=== PATIENT | female | born 1980 | race Caucasian/White ===

== ENCOUNTER → 2019-12-21 09:45 | Outpatient (CLI) | payer BC, SELFPAY ==
--- NOTE | ~2019-12-21 | MMUS_ITS ---
EXAMINATION: MM diagnostic julia BI w torrie, US breast BI limited HISTORY: Follow-up breast masses TECHNIQUE: Additional 3-D tomosynthesis images of the breasts were performed and synthetic 2-D images were generated. CAD analysis was submitted and interpreted. High resolution bilateral breast ultraso und was performed. COMPARISON: 03/14/2019 FINDINGS: MAMMOGRAPHIC FINDINGS: The breasts are heterogenously dense, which may obscure small masses. Bilateral breast asymmetries ar e stable. No significant change to benign-appearing right breast calcifications. No new masses, calci fications or architectural distortion are identified. ULTRASOUND: Right breast ultrasound: At 1:00, 8 cm from the nipple, there is a 6 mm complicated cyst with low-level internal echoes. At 2: 00, 7 cm from the nipple, there is a 3 mm complicated cyst. Left breast ultrasound: At 12:00, 8 cm from the nipple, there is a 7 mm cyst. IMPRESSION: 1. No evidence for malignancy in either breast. Benign findings. 2. Routine yearly screening mammogram and regular clinical breast examination are recommended. BI-RADS Category 2: Benign finding(s). Reviewed, dictated and finalized at location A. IMPRESSION: 1. No evidence for malignancy in either breast. Benign findings. 2. Routine yearly screening mammogram and regular clinical breast examination a re recommended. BI-RADS Category 2: Benign finding(s).
== END ==
PROVIDERS: Visit Provider Obstetrics & Gynecology Gynecology
DX: R92.8 Other abnormal and inconclusive findings on diagnostic imaging of breast (principal)
CPT/HCPCS: 76642; 77062; 77066; G0279

== ENCOUNTER → 2020-08-31 14:29 | Outpatient (CLI) | payer BC, SELFPAY ==
--- NOTE | ~2020-08-31 | MMUS_ITS ---
EXAMINATION: MM diagnostic julia BI w torrie, US breast BI complete HISTORY: Bilateral breast pain for one month TECHNIQUE: ML, MLO and craniocaudal 3-D tomosynthesis images of both breasts were performed and synth etic 2-D images were generated. Bilateral magnification views. CAD analysis was submitted and interpr eted. High resolution complete bilateral breast ultrasound was performed. COMPARISON: 12/21/2019 and 03/16/2019 bilateral diagnostic digital mammogram and Limited bilateral breas t ultrasound 03/14/2019 bilateral digital screening mammogram BREAST PARENCHYMAL COMPOSITION: The breasts are heterogeneously dense, which may obscure small masses . FINDINGS: MAMMOGRAPHIC FINDINGS: There are numerous bilateral benign appearing microcalcifications. No malignant calcifications are ev ident. No suspicious mass, architectural distortion, skin thickening or retraction of either breast is evide nt. The heterogeneous density may obscure small masses. The patient complains of bilateral breast pain. B ilateral complete breast ultrasound examination was performed. The lung ULTRASOUND: Occasional bilateral circumscribed subcentimeter hypoechoic or sonolucent lesions are noted without i nternal vascularity or suspicious shadowing. IMPRESSION: 1. No mammographic evidence of malignancy 2. Routine mammographic screening is recommended. BI-RADS Category 2: Benign finding(s). Reviewed, dictated and finalized at location A. 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 No mammographic evidence of malignancy 2. Routine mammographic screening is recommended. BI-RADS Category 2: Benign finding(s).
== END ==
PROVIDERS: Visit Provider Obstetrics & Gynecology Gynecology
DX: N64.4 Mastodynia (principal)
CPT/HCPCS: 76641; 77062; 77066; G0279

== ENCOUNTER → 2020-11-03 00:23 | Outpatient (CLI) | payer BC, SELFPAY ==
[2020-11-03 19:43] LABS: SARS-CoV-2 RNA PCR Negative
== END ==
PROVIDERS: Visit Provider Internal Medicine Gastroenterology
DX: Z01.812 Encounter for preprocedural laboratory examination (principal); Z20.822 Contact with and (suspected) exposure to COVID-19
CPT/HCPCS: C9803; U0003; U0005

== ENCOUNTER 2020-11-07 02:21 | Day surgery (SDC) | payer BC, SELFPAY ==
[2020-10-30 10:07] VITALS: BMI 29.3
--- NOTE | 2020-11-07 07:48 | WPDANESEPPF ---
Anes - Initial Pre Proc Eval Procedure: Operation Date: 11/07/20 09:00 Proposed Procedures p Screening Colonoscopy - Darrion Horowitz MD Date/Time: 11/07/20 07:48 Surgeon: Darrion Horowitz MD Pre Op Diagnosis: hx of colon polyps Patient Data Age: 40 Gender: F Height: 1.55 m Weight: 70.5 kg Allergies Allergy/AdvReac Type Severity Reaction Status Date / Time erythromycin base Allergy Unknown Unknown Verified 11/07/20 08:09 pseudoephedrine Allergy Unknown heart Verified 11/07/20 08:09 palpatations artichoke AdvReac Difficulty Verified 11/07/20 08:09 Swallowing LACTOSE INTOLERANT AdvReac Unknown upset Uncoded 11/07/20 08:09 stomach Home Medications Medication Instructions Recorded Confirmed Type ergocalciferol (vitamin D2) 1,250 50,000 unit PO 2XW 09/09/19 10/30/20 History mcg (50,000 unit) capsule omeprazole 20 mg capsule,delayed 20 mg PO DAILY PRN #30 cap 09/09/19 10/30/20 Rx release rosuvastatin 10 mg tablet 10 mg PO DAILY #30 tablet 09/09/19 10/30/20 Rx ferrous sulfate 325 mg (65 mg 325 mg PO DAILY #90 tablet 12/26/19 10/30/20 Rx iron) tablet aspirin 81 mg PO DAILY 10/30/20 10/30/20 History levothyroxine [Synthroid] 75 mcg PO DAILY 10/30/20 10/30/20 History sbymhpwo-hafh-ND-calcium-mins 1 tablet PO DAILY 10/30/20 10/30/20 History [Women's One Daily] omega-3 fatty acids [Fish Oil] 1,000 mg PO DAILY 10/30/20 10/30/20 History Patient hx anesthesia problems: none Family hx anesthesia problems: none PMFSH Past Medical History Medical History (Updated 09/12/19 @ 15:08 by Conchita Montano MD) Elevated liver enzymes Gastroesophageal reflux disease Hx TIA/stroke w/o resid Migraine, unspecified, not intractable, without status migrainosus Other and unspecified hyperlipidemia Papillary adenocarcinoma of thyroid Vitamin D deficiency Family History Family History Father Family history of rheumatoid arthritis Family history of liver disease Diabetes mellitus Hypertension Hyperlipidemia Mother Cerebrovascular accident Diabetes mellitus Heart disease Hyperlipidemia Hypertension Social History Social History Smoking status: Never smoker Alcohol intake: never Living arrangements: with family Spiritual care concerns: No Anes - Eval Final PreProcedure Day of Procedure 11/07/20 07:48 Patient weight: overweight Heart: regular rate and rhythm Lungs: clear to auscultation and normal air movement Airway: Mallampati scale class II Neurological: alert and oriented Last oral intake: >/= 8 hours ASA classification: III Emergent: no Anesthetic plan: proceed Anesthesia type and monitoring: general GIVS Informed Consent: The patient's anesthetic plan and its attendant risks and benefits were discussed with the patient/family/POA. Questions were solicited and answers provided to the satisfaction of the patient/family/POA.
[2020-11-07 08:11] VITALS: BP 148/83; PULSE 102; RESP 18; TEMP 36.6; O2SAT 100
[2020-11-07] MEDS: LACTATED RINGERS 1,000 ML 150 ML IV CONT (08:25)
[2020-11-07 09:16] VITALS: BP 133/94; PULSE 99; RESP 22; O2SAT 98
[2020-11-07 09:26] VITALS: BP 126/82; BP 129/84; PULSE 79; PULSE 91; RESP 16; RESP 20; O2SAT 100; O2SAT 99
--- NOTE | 2020-11-14 14:31 | PM.HPGS ---
History of Present Illness History of Present Illness Consent: Risks, benefits, and alternatives have been discussed and questions answered. Patient agrees to proceed with procedure. Chief complaint: hx of colon polyps Narrative: Niurka Bolden is a 40 year old female was undergoing colonoscopy because of a history of polyps Review of Systems Review of Systems: All systems reviewed & are unremarkable except as noted in HPI and below PMFSH Past Medical History Medical History Elevated liver enzymes Gastroesophageal reflux disease Hx TIA/stroke w/o resid Migraine, unspecified, not intractable, without status migrainosus Other and unspecified hyperlipidemia Papillary adenocarcinoma of thyroid Vitamin D deficiency Family History Family History Father Family history of rheumatoid arthritis Family history of liver disease Diabetes mellitus Hypertension Hyperlipidemia Mother Cerebrovascular accident Diabetes mellitus Heart disease Hyperlipidemia Hypertension Social History Social History Smoking status: Never smoker Alcohol intake: never Living arrangements: with family Spiritual care concerns: No Meds Home Medications and Allergies Home Medications Medication Instructions Recorded Confirmed Type ergocalciferol (vitamin D2) 1,250 50,000 unit PO 2XW 09/09/19 10/30/20 History mcg (50,000 unit) capsule omeprazole 20 mg capsule,delayed 20 mg PO DAILY PRN #30 cap 09/09/19 10/30/20 Rx release rosuvastatin 10 mg tablet 10 mg PO DAILY #30 tablet 09/09/19 10/30/20 Rx ferrous sulfate 325 mg (65 mg 325 mg PO DAILY #90 tablet 12/26/19 10/30/20 Rx iron) tablet Women's One Daily 1 tablet PO DAILY 10/30/20 10/30/20 History aspirin 81 mg PO DAILY 10/30/20 10/30/20 History levothyroxine [Synthroid] 75 mcg PO DAILY 10/30/20 10/30/20 History omega-3 fatty acids 1,000 mg PO DAILY 10/30/20 10/30/20 History Allergies Allergy/AdvReac Type Severity Reaction Status Date / Time erythromycin base Allergy Unknown Unknown Verified 11/07/20 08:09 pseudoephedrine Allergy Unknown heart Verified 11/07/20 08:09 palpatations artichoke AdvReac Difficulty Verified 11/07/20 08:09 Swallowing LACTOSE INTOLERANT AdvReac Unknown upset Uncoded 11/07/20 08:09 stomach Exam Resp: Auscultation: clear to auscultation bilaterally Cardio: Rate: regular rate Rhythm: regular rhythm GI: GI Palp: Yes Soft to palpation and No Tenderness to palpation present (GI) Assessment and Plan Assessment and plan (1) Personal history of colonic polyps: Code(s): Z86.010 - Personal history of colonic polyps Status: Acute Assessment and Plan: Colonoscopy with possible biopsy or polypectomy or cautery or injection of substances.
== END 2020-11-07 09:44 | disposition home or self-care (01) ==
PROVIDERS: Visit Provider Internal Medicine Gastroenterology
PROC: 0DJD8ZZ Inspection of Lower Intestinal Tract, Via Natural or Artificial Opening Endoscopic (ICD-10-PCS; CPT 45378; principal; 2020-11-07 09:00)
DX: Z12.11 Encounter for screening for malignant neoplasm of colon (principal); K64.8 Other hemorrhoids; Z86.010 Personal history of colon polyps; K21.9 Gastro-esophageal reflux disease without esophagitis; E55.9 Vitamin D deficiency, unspecified; Z86.73 Personal history of transient ischemic attack (TIA), and cerebral infarction without residual deficits; E78.5 Hyperlipidemia, unspecified; Z85.850 Personal history of malignant neoplasm of thyroid
CPT/HCPCS: 45378; J2704; J7120

== ENCOUNTER → 2021-03-29 08:53 | Outpatient (CLI) | payer BC, SELFPAY ==
--- NOTE | ~2021-03-29 | US_ITS ---
EXAMINATION: US abdomen limited DATE: 03/29/2021 09:39 INDICATION: Abnormal liver enzymes TECHNIQUE: Multiple grayscale and Doppler ultrasound images of the abdomen were obtained. COMPARISON: None available FINDINGS: The head and body of the pancreas are normal. The pancreatic tail is obscured by bowel gas. The liver demonstrates increased echogenicity, heterogenous echotexture, and decreased through trans mission. No surface nodularity. Normal hepatopetal flow in the main portal vein. The gallbladder is n ormal with no abnormal wall thickening, pericholecystic fluid or stones. The normal common bile duct measures 6 mm. There was no sonographic Holgiun sign. IMPRESSION: 1. Diffuse hepatic steatosis. Reviewed, dictated and finalized at location A.
== END ==
PROVIDERS: PCP Nurse Practitioner; Visit Provider Nurse Practitioner
DX: R74.8 Abnormal levels of other serum enzymes (principal); K76.0 Fatty (change of) liver, not elsewhere classified
CPT/HCPCS: 76705

== ENCOUNTER 2021-11-05 17:23 | Outpatient (CLI) | payer BC, SELFPAY ==
--- NOTE | ~2021-11-05 | MM_ITS ---
EXAMINATION: MM screening [facility] BI w torrie HISTORY: Screening mammogram TECHNIQUE: Craniocaudal and mediolateral oblique 3-D tomosynthesis images were obtained and synthetic 2-D images were generated. CAD analysis was submitted and interpreted. COMPARISON: 08/31/2020, 12/21/2019, 03/16/2019, 03/14/2019 BREAST PARENCHYMAL COMPOSITION: The breasts are heterogeneously dense, which may obscure small masses . FINDINGS: Scattered benign-appearing calcifications are present. There is no suspicious mass, calcifi cation, or architectural distortion to suggest malignancy in either breast. There has been no suspici ous interval change. IMPRESSION: 1. No mammographic evidence of malignancy. 2. Recommend routine screening mammography in one year. BI-RADS Category 2: Benign finding(s). Reviewed, dictated and finalized at location A.
== END 2021-11-05 17:24 | disposition home or self-care (01) ==
LOC: ANHIMG 17:24
PROVIDERS: PCP Family Medicine; Visit Provider Obstetrics & Gynecology Gynecology
DX: Z12.31 Encounter for screening mammogram for malignant neoplasm of breast (principal)
CPT/HCPCS: 77063; 77067

== ENCOUNTER → 2021-12-10 13:27 | Outpatient (CLI) | payer BC, SELFPAY ==
--- NOTE | ~2021-12-10 | US_ITS ---
EXAMINATION: US pelvic complete DATE: 12/10/2021 13:51 INDICATION: Right lower quadrant pain TECHNIQUE: Multiple transabdominal and endovaginal sonographic images of the pelvis were obtained. COMPARISON: None. FINDINGS: The uterus measures 10.6 x 5.5 x 7.4 cm. There is a 3.4 x 2.4 x 2.5 cm isoechoic area of th e right uterine fundus which has the appearance of an intramural fibroid. The endometrial complex johnathan sures 11 mm. The right ovary measures 3.4 x 2.3 x 3.2 cm. The left ovary measures 2.4 x 1.6 x 2.2 cm. There is normal vascular flow in the ovaries. There is no free fluid in the pelvis. IMPRESSION: 1. No sonographic correlate for the patient's symptoms. Reviewed, dictated and finalized at location A.
== END ==
PROVIDERS: PCP Obstetrics & Gynecology Gynecology; Visit Provider Nurse Practitioner
DX: R10.31 Right lower quadrant pain (principal)
CPT/HCPCS: 76856

== ENCOUNTER → 2022-04-21 15:51 | Outpatient (CLI) | payer BC, SELFPAY ==
--- NOTE | ~2022-04-21 | US_ITS ---
EXAMINATION: US abdomen limited DATE: 04/21/2022 16:07 INDICATION: Elevated liver enzymes TECHNIQUE: Multiple grayscale and Doppler ultrasound images of limited portions of the abdomen were o btained. COMPARISON: 03/29/2021. FINDINGS: The visualized portions of the pancreas are normal. The liver is enlarged with increased ec hogenicity and normal echotexture. No surface nodularity. Normal hepatopetal flow in the main portal vein. Multiple nonmobile shadowing foci and a 4 mm nonshadowing focus. The common bile duct measures 4 mm. There was no sonographic Holguin sign. IMPRESSION: Hepatomegaly. Echogenic liver, most commonly due to steatosis but also can be seen with hepatitis and fibrosis. Nonmobile gallbladder foci likely represent adherent stones and a sludge ball versus small polyp. Reviewed, dictated and finalized at location K. IMPRESSION: Hepatomegaly. Echogenic liver, most commonly due to steatosis but also can be s een with hepatitis and fibrosis. Nonmobile gallbladder foci likely represent ad herent stones and a sludge ball versus small polyp.
== END ==
PROVIDERS: PCP Nurse Practitioner; Visit Provider Internal Medicine Endocrinology, Diabetes & Metabolism
DX: R74.01 Elevation of levels of liver transaminase levels (principal); R16.0 Hepatomegaly, not elsewhere classified
CPT/HCPCS: 76705

== ENCOUNTER → 2022-07-28 16:07 | Outpatient (CLI) | payer BC, SELFPAY ==
--- NOTE | ~2022-07-28 | XR_ITS ---
EXAMINATION: XR thoracic spine 3V DATE: 07/28/2022 16:32 INDICATION: Left-sided upper back pain TECHNIQUE: One AP, lateral and lateral swimmer's views of the thoracic spine were obtained. COMPARISON: None. FINDINGS: 5 degrees lower thoracic levocurvature. Sagittal alignment is normal. Vertebral body heights are norm al. Mild anterior disc height loss at multiple levels from T4-T5 through T9-T10. Visualized portions of the lungs are clear with no pneumothorax or pleural effusion. Cardiomediastinal silhouette is norm al. Surgical clips at the left side of the neck suggesting prior thyroidectomy. IMPRESSION: 1. Minimal lower thoracic levocurvature with mild thoracic spondylosis. Reviewed, dictated and finalized at location A. 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
--- NOTE | ~2022-07-28 | XR_ITS ---
EXAMINATION: XR scapula LT DATE: 07/28/2022 16:32 INDICATION: Left-sided upper back pain TECHNIQUE: AP and lateral views of the left scapula were obtained. COMPARISON: None. FINDINGS: Alignment is normal. No fracture. Acromioclavicular joint space is normal. Mild left glenohumeral ost eoarthritis. Visualized portion of the left lung is clear with no pneumothorax or pleural effusion. IMPRESSION: 1. Mild left glenohumeral osteoarthritis. No acute osseous abnormality. Reviewed, dictated and finalized at location A. 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
== END ==
PROVIDERS: PCP Nurse Practitioner; Visit Provider Nurse Practitioner
DX: M54.9 Dorsalgia, unspecified (principal); M47.814 Spondylosis without myelopathy or radiculopathy, thoracic region; M19.012 Primary osteoarthritis, left shoulder
CPT/HCPCS: 72072; 73010

== ENCOUNTER → 2022-10-14 08:50 | Outpatient (CLI) | payer BC, SELFPAY ==
--- NOTE | ~2022-10-14 | US_ITS ---
EXAMINATION: US pelvic complete DATE: 10/14/2022 09:09 INDICATION: Abnormal uterine bleeding. TECHNIQUE: Multiple transabdominal sonographic images of the pelvis were obtained. COMPARISON: Ultrasound 12/10/2021 FINDINGS: The uterus measures 9.1 x 5.2 x 5.9 cm. There is no free fluid in the pelvis. The endometrial complex measures 9 mm in thickness. There is a 3.0 cm intramural fibroid. The right ovary measures 3.2 x 1.4 x 1.9 cm. The left ovary measures 2.6 x 1.5 x 2.0 cm. There is normal vascular flow in the ovaries. IMPRESSION: 1. Uterine fibroid. Reviewed, dictated and finalized at location A. IMPRESSION: 1. Uterine fibroid.
== END ==
PROVIDERS: PCP Nurse Practitioner; Visit Provider Obstetrics & Gynecology Gynecology
DX: D25.9 Leiomyoma of uterus, unspecified (principal)
CPT/HCPCS: 76856

== ENCOUNTER 2022-11-19 01:50 | Day surgery (SDC) | payer BC, SELFPAY ==
[2022-11-07 13:52] VITALS: BMI 25.8
--- NOTE | 2022-11-18 16:13 | PM.HPGS ---
History of Present Illness History of Present Illness Consent: Risks, benefits, and alternatives have been discussed and questions answered. Patient agrees to proceed with procedure. Chief complaint: GERD Narrative: Niurka Bolden is a 42 year old female who was referred for investigation of reflux type symptoms. She has a history of thyroid cancer. At times it feels as though there is a lump in her throat. Review of Systems Review of Systems: All systems reviewed & are unremarkable except as noted in HPI and below PMFSH Past Medical History Medical History Elevated liver enzymes Gastroesophageal reflux disease Hx TIA/stroke w/o resid Migraine, unspecified, not intractable, without status migrainosus Other and unspecified hyperlipidemia Papillary adenocarcinoma of thyroid Vitamin D deficiency Family History Family History Father Family history of rheumatoid arthritis Family history of liver disease Diabetes mellitus Hypertension Hyperlipidemia Mother Cerebrovascular accident Diabetes mellitus Heart disease Hyperlipidemia Hypertension Social History Social History Smoking status: Never smoker Second hand tobacco smoke exposure: No Alcohol intake: never Substance use: never Substance use type: does not use Living arrangements: with family Gender identity (if verbalized by the patient): Female Sexual Orientation (if Verbalized by the Patient): Straight or Heterosexual Spiritual care concerns: No Agree to blood products: Yes Meds Home Medications and Allergies Home Medications Medication Instructions Recorded Confirmed Type ergocalciferol (vitamin D2) 1,250 50,000 unit PO 2XW 09/09/19 11/12/22 History mcg (50,000 unit) capsule (Vitamin D2) rosuvastatin 10 mg tablet 10 mg PO DAILY #30 tabs 09/09/19 11/12/22 Rx ferrous sulfate 325 mg (65 mg 325 mg PO DAILY #90 tabs 12/26/19 11/12/22 Rx iron) tablet aspirin 81 mg tablet 81 mg PO DAILY 10/30/20 11/12/22 History levothyroxine 75 mcg tablet 75 mcg PO DAILY 10/30/20 11/12/22 History (Synthroid) multivit-iron 18 mg-folic acid 400 1 tablet PO DAILY 10/30/20 11/12/22 History mcg-calcium 500 mg-minerals tablet (Women's One Daily) omega-3 fatty acids 1,000 mg PO DAILY 10/30/20 11/12/22 History levothyroxine 88 mcg tablet 88 mcg PO 3XW 11/07/22 11/12/22 History (Synthroid) metformin 500 mg tablet,extended 500 mg PO BID 11/07/22 11/12/22 History release 24 hr omeprazole 20 mg capsule,delayed 20 mg PO DAILY 11/07/22 11/12/22 History release phentermine 15 mg capsule 15 mg PO DAILY 11/07/22 11/12/22 History atogepant 30 mg tablet (Qulipta) 30 mg PO DAILY 11/12/22 11/18/22 History famotidine 40 mg tablet 40 mg PO DAILY 11/12/22 11/18/22 History Allergies Allergy/AdvReac Type Severity Reaction Status Date / Time pseudoephedrine Allergy Unknown Palpitation Verified 11/19/22 12:55 s butorphanol [From Stadol] Allergy Itching Verified 11/19/22 12:55 erythromycin base AdvReac Intermediate Nausea Verified 11/19/22 12:55 artichoke AdvReac Difficulty Verified 11/19/22 12:55 Swallowing LACTOSE INTOLERANT AdvReac Unknown upset Uncoded 11/19/22 12:55 stomach Exam Const: General: alert Orientation/consciousness: patient oriented x3 Resp: Auscultation: clear to auscultation bilaterally Cardio: Rhythm: regular rhythm GI: GI Palp: Yes Soft to palpation and No Tenderness to palpation present (GI) Neuro: General: patient oriented x3 Assessment and Plan Assessment and plan (1) Gastroesophageal reflux disease: Code(s): K21.9 - Gastro-esophageal reflux disease without esophagitis Status: Acute Assessment and Plan: EGD with possible biopsy or dilatation or cautery.
[2022-11-19 12:58] VITALS: BP 149/86; PULSE 91; RESP 18; TEMP 36.5; O2SAT 100
[2022-11-19] MEDS: LACTATED RINGERS 1,000 ML 150 ML IV CONT (13:11)
[2022-11-19 13:19] LABS: Glucose Point of Care 97 mg/dl (65-105)
--- NOTE | 2022-11-19 13:36 | WPDANESEPPF ---
Anes - Initial Pre Proc Eval Procedure: Operation Date: 11/19/22 14:00 Proposed Procedures p Esophagogastroduodenoscopy - Darrion Horowitz MD Date/Time: 11/19/22 13:36 Surgeon: Darrion Horowitz MD Pre Op Diagnosis: GERD Patient Data Age: 42 Gender: F Height: 1.55 m Weight: 63.2 kg Last Vital Signs Temp 97.7 F 11/19/22 12:58 Pulse 91 11/19/22 12:58 Resp 18 11/19/22 12:58 BP 149/86 H 11/19/22 12:58 Pulse Ox 100 11/19/22 12:58 O2 Del Method Room Air 11/19/22 12:58 Allergies Allergy/AdvReac Type Severity Reaction Status Date / Time pseudoephedrine Allergy Unknown Palpitation Verified 11/19/22 12:55 s butorphanol [From Stadol] Allergy Itching Verified 11/19/22 12:55 erythromycin base AdvReac Intermediate Nausea Verified 11/19/22 12:55 artichoke AdvReac Difficulty Verified 11/19/22 12:55 Swallowing LACTOSE INTOLERANT AdvReac Unknown upset Uncoded 11/19/22 12:55 stomach Home Medications Medication Instructions Recorded Confirmed Type ergocalciferol (vitamin D2) 1,250 50,000 unit PO 2XW 09/09/19 11/12/22 History mcg (50,000 unit) capsule (Vitamin D2) rosuvastatin 10 mg tablet 10 mg PO DAILY #30 tabs 09/09/19 11/12/22 Rx ferrous sulfate 325 mg (65 mg 325 mg PO DAILY #90 tabs 12/26/19 11/12/22 Rx iron) tablet aspirin 81 mg tablet 81 mg PO DAILY 10/30/20 11/12/22 History levothyroxine 75 mcg tablet 75 mcg PO DAILY 10/30/20 11/12/22 History (Synthroid) multivit-iron 18 mg-folic acid 400 1 tablet PO DAILY 10/30/20 11/12/22 History mcg-calcium 500 mg-minerals tablet (Women's One Daily) omega-3 fatty acids 1,000 mg PO DAILY 10/30/20 11/12/22 History levothyroxine 88 mcg tablet 88 mcg PO 3XW 11/07/22 11/12/22 History (Synthroid) metformin 500 mg tablet,extended 500 mg PO BID 11/07/22 11/12/22 History release 24 hr omeprazole 20 mg capsule,delayed 20 mg PO DAILY 11/07/22 11/12/22 History release phentermine 15 mg capsule 15 mg PO DAILY 11/07/22 11/12/22 History atogepant 30 mg tablet (Qulipta) 30 mg PO DAILY 11/12/22 11/18/22 History famotidine 40 mg tablet 40 mg PO DAILY 11/12/22 11/18/22 History Laboratory Tests 11/19/22 13:10 POC Capillary Glucose 97 mg/dl (65-105) Patient hx anesthesia problems: none Family hx anesthesia problems: none Results Review: All pre-operative results and documents have been reviewed as part of the pre-operative evaluation. 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 resid Migraine, unspecified, not intractable, without status migrainosus Other and unspecified hyperlipidemia Papillary adenocarcinoma of thyroid Vitamin D deficiency Family History Family History Father Family history of rheumatoid arthritis Family history of liver disease Diabetes mellitus Hypertension Hyperlipidemia Mother Cerebrovascular accident Diabetes mellitus Heart disease Hyperlipidemia Hypertension Social History Social History Smoking status: Never smoker Second hand tobacco smoke exposure: No Alcohol intake: never Substance use: never Substance use type: does not use Living arrangements: with family Gender identity (if verbalized by the patient): Female Sexual Orientation (if Verbalized by the Patient): Straight or Heterosexual Spiritual care concerns: No Agree to blood products: Yes Anes - Eval Final PreProcedure Day of Procedure 11/19/22 13:36 Patient weight: normal Heart: regular rate and rhythm Lungs: clear to auscultation Airway: Mallampati scale class II Neurological: alert and oriented Last oral intake: >/= 8 hours ASA classification: III Emergent: no Anesthetic plan: proceed Anesthesia type and monitoring: general GIVS an
[2022-11-19 13:51] VITALS: BP 147/94; PULSE 92; RESP 24; O2SAT 100
[2022-11-19 14:01] VITALS: BP 160/91; PULSE 89; RESP 20; O2SAT 100
[2022-11-19 14:11] VITALS: BP 148/88; PULSE 81; RESP 22; O2SAT 100
== END 2022-11-19 14:18 | disposition home or self-care (01) ==
LOC: ANHENDO 01:51 → ANHSURGERY 12:28 → ANHENDO 12:34
PROVIDERS: PCP Nurse Practitioner; Visit Provider Internal Medicine Gastroenterology
PROC: 0DJ08ZZ Inspection of Upper Intestinal Tract, Via Natural or Artificial Opening Endoscopic (ICD-10-PCS; CPT 43235; principal; 2022-11-19 14:00)
DX: K21.9 Gastro-esophageal reflux disease without esophagitis (principal); K29.60 Other gastritis without bleeding; E78.49 Other hyperlipidemia; E55.9 Vitamin D deficiency, unspecified; Z86.73 Personal history of transient ischemic attack (TIA), and cerebral infarction without residual deficits; Z79.82 Long term (current) use of aspirin; Z79.84 Long term (current) use of oral hypoglycemic drugs
CPT/HCPCS: 43239; 82948; 87081; J2704; J7120

== ENCOUNTER 2022-11-19 12:35 | Outpatient (CLI) | payer BC, SELFPAY ==
[2022-11-19 13:17] LABS: Hematocrit 38.1 % (37.0-47.0); Hemoglobin 11.9 g/dL (12.0-15.0)
[2022-11-19 13:28] LABS: Anion Gap 8 mmol/L (8-16); Blood Urea Nitrogen 11 mg/dL (7-17); Calcium 8.3 mg/dL (8.4-10.2); Carbon Dioxide 26 mmol/L (22-30); Chloride 103 mmol/L (98-107); Estimated Glomerular Filt Rate > 60; Glucose 99 mg/dL (65-110); Potassium 3.6 mmol/L (3.4-5.0); Sodium 137 mmol/L (137-145)
[2022-11-19 13:33] LABS: Prothrombin Time 13.8 Seconds (11.1-14.7)
[2022-11-19 13:34] LABS: Partial Thromboplastin Time 26.6 SECONDS (22.3-36.8)
== END 2022-11-19 12:36 | disposition home or self-care (01) ==
LOC: ANHSURGERY 12:36
PROVIDERS: Anesthesiology; PCP Nurse Practitioner; Visit Provider Obstetrics & Gynecology Gynecology
DX: K76.0 Fatty (change of) liver, not elsewhere classified (principal); D64.9 Anemia, unspecified; Z01.818 Encounter for other preprocedural examination
CPT/HCPCS: 36415; 80048; 85014; 85018; 85610; 85730

== ENCOUNTER 2022-11-23 14:04 | Emergency (ER) | payer BC, SELFPAY ==
[2022-11-23] VITALS (10 sets, daily range): BP systolic 120–154; BP diastolic 75–91; PULSE 78–95; RESP 14–20; TEMP 37; O2SAT 98–100
--- NOTE | ~2022-11-23 | XR_ITS ---
Clinical Indication: Chest pain PA and lateral views of the chest: Comparison: 02/09/2015 Findings: The lungs are clear, without evidence of focal consolidation or pleural effusion. Cardiome diastinal silhouette is within normal limits. Bones and soft tissues are unremarkable. Impression: Normal chest. Reviewed, dictated and finalized at location . Impression: Normal chest.
--- NOTE | 2022-11-23 14:06 | ECG_ITS ---
Measurements Intervals [place] Rate: 82 P: 1 NH: 119 QRS: 35 QRSD: 76 T: 46 QT: 354 QTc: 414 Interpretive Statements SINUS RHYTHM WITH SHORT NH INTERVAL ABNORMAL ECG NO PREVIOUS ECG AVAILABLE FOR COMPARISON Electronically Signed On 11-24-2022 10:15:49 CDT by Qamar Vasquez M.D.
[2022-11-23 14:50] LABS: Basophils Absolute Auto 0.1 K/mm3 (0.0-0.1); Basophils Percent Auto 0.6 % (0.2-1.2); Eosinophils Absolute Auto 0.2 K/mm3 (0-0.3); Eosinophils Percent Auto 2.8 % (0-4.4); Hematocrit 40.8 % (37.0-47.0); Hemoglobin 12.8 g/dL (12.0-15.0); Immature Granulocyte Absolute 0.04 K/mm3 (0.00-0.031); Immature Granulocyte Percent A 0.5 % (0-0.5); Lymphocytes Absolute Auto 1.62 K/mm3 (0.9-3.2); Lymphocytes Percent Auto 19.5 % (18.3-44.2); Mean Corpuscular HGB Conc 31.4 g/dl (32-36); Mean Corpuscular Hemoglobin 24.2 pg (26-34); Mean Platelet Volume 9.5 fl (7.4-10.4); Monocytes Absolute Auto 0.5 K/mm3 (0.1-0.6); Monocytes Percent Auto 6.5 % (2.6-8.5); Neutrophils Absolute Auto 5.8 K/mm3 (1.3-6.7); Neutrophils Percent Auto 70.1 % (45.5-73.1); Platelet Count Result 366 k/mm3 (150-375); White Blood Count 8.3 K/mm3 (4.5-10.0)
--- NOTE | 2022-11-23 14:50 | ED.CHESTPAIN ---
HPI - Chest Pain General Chief Complaint: Chest Pain Stated Complaint: chest pain Time Seen by Provider: 11/23/22 14:18 History of Present Illness HPI narrative: 42-year-old female presented to the emergency department for evaluation of epigastric pain. Patient does have a history of gastritis and esophagitis. Patient recently had follow-up with Dr. Horowitz and had a scope that showed esophagitis/gastritis. Patient did have her omeprazole. Patient denies any prior history of ACS or DC. Patient does have history of TIA approximately 10 years ago. Patient reports family history of cardiomyopathy, coronary disease. Related Data Home Medications Medication Instructions Recorded Confirmed ergocalciferol (vitamin D2) 1,250 50,000 unit PO 2XW 09/09/19 11/12/22 mcg (50,000 unit) capsule (Vitamin D2) aspirin 81 mg tablet 81 mg PO DAILY 10/30/20 11/12/22 levothyroxine 75 mcg tablet 75 mcg PO DAILY 10/30/20 11/12/22 (Synthroid) multivit-iron 18 mg-folic acid 400 1 tablet PO DAILY 10/30/20 11/12/22 mcg-calcium 500 mg-minerals tablet (Women's One Daily) omega-3 fatty acids 1,000 mg PO DAILY 10/30/20 11/12/22 levothyroxine 88 mcg tablet 88 mcg PO 3XW 11/07/22 11/12/22 (Synthroid) metformin 500 mg tablet,extended 500 mg PO BID 11/07/22 11/12/22 release 24 hr omeprazole 20 mg capsule,delayed 20 mg PO DAILY 11/07/22 11/12/22 release phentermine 15 mg capsule 15 mg PO DAILY 11/07/22 11/12/22 atogepant 30 mg tablet (Qulipta) 30 mg PO DAILY 11/12/22 11/18/22 famotidine 40 mg tablet 40 mg PO DAILY 11/12/22 11/18/22 Allergies Allergy/AdvReac Type Severity Reaction Status Date / Time pseudoephedrine Allergy Unknown Palpitation Verified 11/23/22 15:41 s butorphanol [From Stadol] Allergy Itching Verified 11/23/22 15:41 erythromycin base AdvReac Intermediate Nausea Verified 11/23/22 15:41 artichoke AdvReac Difficulty Verified 11/23/22 15:41 Swallowing LACTOSE INTOLERANT AdvReac Unknown upset Uncoded 11/23/22 15:41 stomach Review of Systems Review of Systems: All systems reviewed & are unremarkable except as noted in HPI and below PMFSH Past Medical History Medical History Elevated liver enzymes Gastroesophageal reflux disease Hx TIA/stroke w/o resid Migraine, unspecified, not intractable, without status migrainosus Other and unspecified hyperlipidemia Papillary adenocarcinoma of thyroid Vitamin D deficiency Family History Family History Father Family history of rheumatoid arthritis Family history of liver disease Diabetes mellitus Hypertension Hyperlipidemia Mother Cerebrovascular accident Diabetes mellitus Heart disease Hyperlipidemia Hypertension Social History Social History Smoking status: Never smoker Second hand tobacco smoke exposure: No Alcohol intake: never Substance use: never Substance use type: does not use Living arrangements: with family Gender identity (if verbalized by the patient): Female Sexual Orientation (if Verbalized by the Patient): Straight or Heterosexual Spiritual care concerns: No Agree to blood products: Yes Exam Narrative: APPEARANCE: Well appearing, no pain, no distress, well-nourished. HEAD: normocephalic, atraumatic. EYES: PERRLA/EOMI, conjunctivae clear. NOSE: Normal no drainage NECK: Supple. No adenopathy, no masses. RESPIRATORY: Airway patent, respirations nonlabored. Clear to auscultation bilaterally, no rales, rhonchi, wheezing. CARDIOVASCULAR: Regular rate and rhythm without murmurs rubs or gallops. ABDOMINAL: Soft, nontender, nondistended, normal bowel sounds MUSCULOSKELETAL: Moves all extremities. Strength/ROM intact, No edema, No calf tenderness. NEURO: Alert. Cranial nerves II through XII intact. Grossly intact SKIN: Warm, dry. Normal Color [place]
[2022-11-23 15:01] LABS: Prothrombin Time 13.3 Seconds (11.1-14.7)
[2022-11-23 15:07] LABS: Alanine Aminotransferase 25 U/L (6-35); Albumin Level 4.7 g/dL (3.5-5.1); Alkaline Phosphatase 68 U/L (38-126); Anion Gap 9 mmol/L (8-16); Aspartate Amino Transferase 27 U/L (14-36); Bilirubin,Total 1.1 mg/dL (0.2-1.3); Blood Urea Nitrogen 8 mg/dL (7-17); Calcium 9.2 mg/dL (8.4-10.2); Carbon Dioxide 28 mmol/L (22-30); Chloride 102 mmol/L (98-107); Estimated CRCL calculation 125 ml/min; Estimated Glomerular Filt Rate > 60; Glucose 98 mg/dL (65-110); Lipase 45 U/L (23-300); Potassium 3.7 mmol/L (3.4-5.0); Sodium 139 mmol/L (137-145)
[2022-11-23 15:19] LABS: Troponin I < 0.012 ng/mL (0.000-0.034)
[2022-11-23 18:34] LABS: Troponin I < 0.012 ng/mL (0.000-0.034)
== END 2022-11-23 20:05 | disposition home or self-care (01) ==
PROVIDERS: Emergency Provider Emergency Medicine; PCP Nurse Practitioner
DX: R07.89 Other chest pain (principal); K21.00 Gastro-esophageal reflux disease with esophagitis, without bleeding; E78.49 Other hyperlipidemia; E55.9 Vitamin D deficiency, unspecified; Z85.850 Personal history of malignant neoplasm of thyroid; Z86.73 Personal history of transient ischemic attack (TIA), and cerebral infarction without residual deficits; Z79.84 Long term (current) use of oral hypoglycemic drugs
CPT/HCPCS: 36415; 71046; 80053; 83690; 84484; 85025; 85610; 85730; 93005; 99284

== ENCOUNTER 2022-11-24 01:49 | Day surgery (SDC) | payer BC, SELFPAY ==
[2022-11-12 14:50] VITALS: BMI 25.7
--- NOTE | 2022-11-12 14:59 | PC.NURSE ---
Report to the Outpatient Waiting Room, entrance under the green pavilion located off [facility], at time 9:00 on date 11/24/22. Planned Procedure Time: 11:00. Time changes happen often and if your time is changed the preop area will call you the afternoon before. - You and your visitor will be asked to self-screen and do not enter if you have any COVID symptoms. - A mask is optional within the hospital at this time. Patients may have clear liquids (water, carbonated beverages, clear teas, apple juice) until 3 hours prior to surgery with a maximum of 20 ounces. - No food from midnight until time of surgery Take the following medications with a SIP of water the morning of surgery: LEVOTHYROXINE DO NOT STOP ANY OF YOUR OTHER PRESCRIPTION MEDICATIONS PRIOR TO SURGERY EXCEPT THE FOLLOWING Medications to discontinue per physician: VITAMINS/SUPPLEMENTS Date to take last dose: 11/20/[address] ANDREWS REGARDING ASPIRIN Please no make-up, nail uzbek, hairspray, perfume, deodorant, or body powder the day of surgery. No jewelry (including any body piercings) or valuables the day of surgery, leave them at home. Please take a shower or bath the night before, or the morning of, surgery with an antibacterial soap. Wear comfortable, loose fitting clothing. - Jewelry must be removed prior to entering the operating room. Rings and piercings that are not removed may be cut off. - The hospital will not accept responsibility for valuables. - Please leave all valuables, including medications, at home the day of surgery. If you are going home after surgery, a licensed truck driver's offsider must drive you home. - NO public transportation without another adult if you receive anesthesia. - We recommend that an adult stay with you for 24 hours following discharge. - We also recommend that you do not drive, make important decision, drink alcoholic beverages, or take any drugs that were not prescribed by your health care provider for at least 24 hours after your discharge time. Follow any additional instructions given to you from your surgeon. If you or anyone in your household have experienced Covid symptoms in the past week, please notify your surgeon or the nurse liaison at the phone number below for possible testing. Telephone instructions given to PT - LONI OLIVO and asked if any additional questions and then verbalized understanding. Patient advised to call surgeon office or pre surgery nurse liaison [phone] if any additional questions.
--- NOTE | 2022-11-24 07:38 | WPDHPUPDATE1 ---
History and Physical Update Update Date/Time: 11/24/22 07:38 History and Physical has been reviewed, including an updated exam of the patient. There are NO changes in the patient's condition. Risks, benefits, and alternatives have been discussed and questions answered. Patient agrees to proceed with procedure.
--- NOTE | 2022-11-24 07:38 | PM.HPGS ---
History of Present Illness History of Present Illness Consent: Risks, benefits, and alternatives have been discussed and questions answered. Patient agrees to proceed with procedure. Chief complaint: menorrhagia with anemia Narrative: Niurka Bolden is a 42 year old female with heavy cycles. Patient states she was bleeding more than a pad per hour and bleeding through her clothes. Cycles were lasting approximately 4 to 5 days total. Ultrasound does reveal an intramural fibroid but states no others. Hemoglobin most recently was 10.7. It was recommended to proceed with further workup including D&C hysteroscopy. Risks of infection, bleeding, and perforation were reviewed. Possible pathology was also discussed. Patient voices understanding and agrees to proceed. Review of Systems Review of Systems: not repeated day of surgery; patient states no changes in status PMFSH Past Medical History Medical History (Updated 11/24/22 @ 07:42 by Cece Gutierrez MD) Elevated liver enzymes Gastroesophageal reflux disease History of kidney stones Hx TIA/stroke w/o resid Migraine, unspecified, not intractable, without status migrainosus (normal spontaneous vaginal delivery) x2 Other and unspecified hyperlipidemia Papillary adenocarcinoma of thyroid Vitamin D deficiency Surgical History Surgical History (Updated 11/24/22 @ 07:41 by Cece Gutierrez MD) History of thyroidectomy Hx of LASIK Family History Family History Father Family history of rheumatoid arthritis Family history of liver disease Diabetes mellitus Hypertension Hyperlipidemia Mother Cerebrovascular accident Diabetes mellitus Heart disease Hyperlipidemia Hypertension Social History Social History Smoking status: Never smoker Second hand tobacco smoke exposure: No Alcohol intake: never Substance use: never Substance use type: does not use Living arrangements: with family Gender identity (if verbalized by the patient): Female Sexual Orientation (if Verbalized by the Patient): Straight or Heterosexual Spiritual care concerns: No Agree to blood products: Yes Meds Home Medications and Allergies Home Medications Medication Instructions Recorded Confirmed Type ergocalciferol (vitamin D2) 1,250 50,000 unit PO 2XW 09/09/19 11/12/22 History mcg (50,000 unit) capsule (Vitamin D2) rosuvastatin 10 mg tablet 10 mg PO DAILY #30 tabs 09/09/19 11/12/22 Rx ferrous sulfate 325 mg (65 mg 325 mg PO DAILY #90 tabs 12/26/19 11/12/22 Rx iron) tablet aspirin 81 mg tablet 81 mg PO DAILY 10/30/20 11/12/22 History levothyroxine 75 mcg tablet 75 mcg PO DAILY 10/30/20 11/12/22 History (Synthroid) multivit-iron 18 mg-folic acid 400 1 tablet PO DAILY 10/30/20 11/12/22 History mcg-calcium 500 mg-minerals tablet (Women's One Daily) omega-3 fatty acids 1,000 mg PO DAILY 10/30/20 11/12/22 History levothyroxine 88 mcg tablet 88 mcg PO 3XW 11/07/22 11/12/22 History (Synthroid) metformin 500 mg tablet,extended 500 mg PO BID 11/07/22 11/12/22 History release 24 hr omeprazole 20 mg capsule,delayed 20 mg PO DAILY 11/07/22 11/12/22 History release phentermine 15 mg capsule 15 mg PO DAILY 11/07/22 11/12/22 History atogepant 30 mg tablet (Qulipta) 30 mg PO DAILY 11/12/22 11/18/22 History famotidine 40 mg tablet 40 mg PO DAILY 11/12/22 11/18/22 History Allergies Allergy/AdvReac Type Severity Reaction Status Date / Time pseudoephedrine Allergy Unknown Palpitation Verified 11/23/22 15:41 s butorphanol [From Stadol] Allergy Itching Verified 11/23/22 15:41 erythromycin base AdvReac Intermediate Nausea Verified 11/23/22 15:41 artichoke AdvReac Difficulty Verified 11/23/22 15:41 Swallowing LACTOSE INTOLERANT AdvReac Unknown upset Uncoded 11/23/22 15:41 stomach Exam Const: Gener
[2022-11-24] MEDS: LACTATED RINGERS 1,000 ML 30 ML IV CONT (10:00)
[2022-11-24 10:01] LABS: Glucose Point of Care 113 mg/dl (65-105)
[2022-11-24 10:08] VITALS: BP 121/79; PULSE 91; RESP 14; TEMP 36.8; O2SAT 100
[2022-11-24] MEDS: ACETAMINOPHEN 500 MG TABLET 1000 MG PO (10:10)
--- NOTE | 2022-11-24 10:26 | WPDANESEPPF ---
Anes - Initial Pre Proc Eval Procedure: Operation Date: 11/24/22 11:00 Proposed Procedures p Hysteroscopy, Dilation and Curettage - Cece Gutierrez MD Date/Time: 11/24/22 10:26 Surgeon: Cece Gutierrez MD Pre Op Diagnosis: menorrhagia with anemia Patient Data Age: 42 Gender: F Height: 1.55 m Weight: 63.7 kg Last Vital Signs Temp 36.8 C 11/24/22 10:08 Pulse 91 11/24/22 10:08 Resp 14 11/24/22 10:08 BP 121/79 11/24/22 10:08 Pulse Ox 100 11/24/22 10:08 O2 Del Method Room Air 11/24/22 10:08 Allergies Allergy/AdvReac Type Severity Reaction Status Date / Time pseudoephedrine Allergy Unknown Palpitation Verified 11/24/22 10:12 s butorphanol [From Stadol] Allergy Itching Verified 11/24/22 10:12 erythromycin base AdvReac Intermediate Nausea Verified 11/24/22 10:12 artichoke AdvReac Difficulty Verified 11/24/22 10:12 Swallowing LACTOSE INTOLERANT AdvReac Unknown upset Uncoded 11/24/22 10:12 stomach Home Medications Medication Instructions Recorded Confirmed Type ergocalciferol (vitamin D2) 1,250 50,000 unit PO 2XW 09/09/19 11/12/22 History mcg (50,000 unit) capsule (Vitamin D2) rosuvastatin 10 mg tablet 10 mg PO DAILY #30 tabs 09/09/19 11/12/22 Rx ferrous sulfate 325 mg (65 mg 325 mg PO DAILY #90 tabs 12/26/19 11/12/22 Rx iron) tablet aspirin 81 mg tablet 81 mg PO DAILY 10/30/20 11/12/22 History levothyroxine 75 mcg tablet 75 mcg PO DAILY 10/30/20 11/24/22 History (Synthroid) multivit-iron 18 mg-folic acid 400 1 tablet PO DAILY 10/30/20 11/12/22 History mcg-calcium 500 mg-minerals tablet (Women's One Daily) omega-3 fatty acids 1,000 mg PO DAILY 10/30/20 11/12/22 History levothyroxine 88 mcg tablet 88 mcg PO 3XW 11/07/22 11/12/22 History (Synthroid) metformin 500 mg tablet,extended 500 mg PO BID 11/07/22 11/12/22 History release 24 hr omeprazole 20 mg capsule,delayed 20 mg PO DAILY 11/07/22 11/12/22 History release phentermine 15 mg capsule 15 mg PO DAILY 11/07/22 11/12/22 History atogepant 30 mg tablet (Qulipta) 30 mg PO DAILY 11/12/22 11/18/22 History famotidine 40 mg tablet 40 mg PO DAILY 11/12/22 11/18/22 History Laboratory Tests 11/24/22 09:58 POC Capillary Glucose 113 H mg/dl (65-105) Patient hx anesthesia problems: none Family hx anesthesia problems: none Results Review: All pre-operative results and documents have been reviewed as part of the pre-operative evaluation. [facility] Past Medical History Medical History Elevated liver enzymes Gastroesophageal reflux disease History of kidney stones Hx TIA/stroke w/o resid Migraine, unspecified, not intractable, without status migrainosus (normal spontaneous vaginal delivery) x2 Other and unspecified hyperlipidemia Papillary adenocarcinoma of thyroid Vitamin D deficiency Surgical History Surgical History History of thyroidectomy Hx of LASIK Family History Family History Father Family history of rheumatoid arthritis Family history of liver disease Diabetes mellitus Hypertension Hyperlipidemia Mother Cerebrovascular accident Diabetes mellitus Heart disease Hyperlipidemia Hypertension Social History Social History Smoking status: Never smoker Second hand tobacco smoke exposure: No Alcohol intake: never Substance use: never Substance use type: does not use Living arrangements: with family Gender identity (if verbalized by the patient): Female Sexual Orientation (if Verbalized by the Patient): Straight or Heterosexual Spiritual care concerns: No Agree to blood products: Yes Anes - Eval Final PreProcedure Day of Procedure 11/24/22 10:26 Patient weight: overweight Heart:
[2022-11-24] MEDS: LIDO 1%/EPINEPHRINE 1:100,000 50 ML VIAL 10 ML INFILTRATE (11:04)
[2022-11-24 11:15] VITALS: BP 138/81; PULSE 94; RESP 14; O2SAT 97
--- NOTE | 2022-11-24 11:19 | P.OP_ITS ---
Procedure Note - Detailed Date of Procedure 11/24/22 Pre-op Diagnosis menorrhagia with anemia Post-op Diagnosis Same Procedure Performed D&C hysteroscopy Surgeon Cece Gutierrez MD Anesthesia MAC and Local Findings uterus sounds to 8cm and the endometrium appears grossly normal Description of Procedure The patient is taken to the operating room and placed under anesthesia in the dorsal lithotomy position. She was prepped and draped in usual sterile fashion. [place] speculum was placed in the vagina and the cervix grasped on the anterior lip with tenaculum. The cervix is injected in each quadrant with 1% lidocaine the cervix is stenotic. The os Finders were used and are able to enter the endometrial cavity. The uterus sounds to 8cm. The hysteroscope is then placed with no abnormalities noted it is removed. The sharp curette is used to curette the endometrium until a good uterine cry was noted in all areas. All instruments are removed. Sponge, needle, and instrument counts are correct per the OR staff. Patient is awakened from anesthesia and taken to recovery in stable condition. Estimated Blood Loss 5 Drains No Packing No Pathology Yes ( Endometrial curettings) Complications No immediate complications Condition Stable Disposition PACU
[2022-11-24 11:25] LABS: Glucose Point of Care 128 mg/dl (65-105)
[2022-11-24 11:45] VITALS: BP 130/80; PULSE 77; RESP 14
[2022-11-24 12:15] VITALS: BP 138/80; PULSE 76; RESP 14
== END 2022-11-24 12:24 | disposition home or self-care (01) ==
PROVIDERS: PCP Nurse Practitioner; Visit Provider Obstetrics & Gynecology Gynecology
PROC: 0U5B8ZZ Destruction of Endometrium, Via Natural or Artificial Opening Endoscopic (ICD-10-PCS; CPT 58563; principal; 2022-11-24 11:00)
DX: N92.0 Excessive and frequent menstruation with regular cycle (principal); D64.9 Anemia, unspecified; E89.0 Postprocedural hypothyroidism; E78.49 Other hyperlipidemia; K21.9 Gastro-esophageal reflux disease without esophagitis; E55.9 Vitamin D deficiency, unspecified; Z86.73 Personal history of transient ischemic attack (TIA), and cerebral infarction without residual deficits; Z85.850 Personal history of malignant neoplasm of thyroid; Z79.84 Long term (current) use of oral hypoglycemic drugs
CPT/HCPCS: 58558; 82948; 88305; A9270; J2250; J2405; J2704; J3010; J7120

== ENCOUNTER 2022-12-15 00:46 | Day surgery (SDC) | payer BC, SELFPAY ==
[2022-12-09 16:36] VITALS: BMI 25.9
--- NOTE | 2022-12-09 16:39 | SUR.PREOP ---
Report to the Outpatient Waiting Room, entrance under the green pavilion located off [facility], at time 12/15/22 on date 914. Planned Procedure Time: 1115. . Time changes happen often and if your time is changed the preop area will call you the afternoon before. - You and your visitor will be asked to self-screen and do not enter if you have any COVID symptoms. - A mask is optional within the hospital at this time. Patients may have clear liquids (water, carbonated beverages, clear teas, apple juice) until 3 hours prior to surgery with a maximum of 20 ounces. - No food from midnight until time of surgery before 0830 am - Infants may have breast milk until 4 hours before surgery, formula 6 hours prior to surgery. - Children will be allowed to drink immediately following surgery. If applicable, please bring a bottle or sippy cup to assist with drinking. Juice, water, soda, and popsicles are readily available. For infants on formula, please bring formula the day of surgery. Pacifiers are allowed. Take the following medications with a SIP of water the morning of surgery: ___levothyroxine DO NOT STOP ANY OF YOUR OTHER PRESCRIPTION MEDICATIONS PRIOR TO SURGERY ?EXCEPT THE FOLLOWING Medications to discontinue per physician ____pt to call office in regards to aspirin and weight loss medication. hold supplements and vitamins for 3 days prior to surgery Date to take last dose Please no make-up, nail latvian, hairspray, perfume, deodorant, or body powder the day of surgery. No jewelry (including any body piercings) or valuables the day of surgery, leave them at home. Please take a shower or bath the night before, or the morning of, surgery with an antibacterial soap. Wear comfortable, loose fitting clothing. Children are encouraged to wear pajamas. - Jewelry must be removed prior to entering the operating room. Rings and piercings that are not removed may be cut off. - The hospital will not accept responsibility for valuables. - Please leave all valuables, including medications, at home the day of surgery. If you are going home after surgery, a licensed bus driver/monitor must drive you home. - NO public transportation without another adult if you receive anesthesia. - We recommend that an adult stay with you for 24 hours following discharge. - We also recommend that you do not drive, make important decision, drink alcoholic beverages, or take any drugs that were not prescribed by your health care provider for at least 24 hours after your discharge time. For Pediatric surgeries, we recommend two adults accompany the child home. Follow any additional instructions given to you from your surgeon. If you or anyone in your household have experienced Covid symptoms in the past week, please notify your surgeon or the nurse liaison at the phone number below for possible testing. Telephone instructions given to _patient_and asked if any additional questions and then verbalized understanding. Patient advised to call surgeon office or pre surgery nurse liaison [phone] if any additional questions.
--- NOTE | 2022-12-15 08:58 | WPDHPUPDATE1 ---
History and Physical Update Update Date/Time: 12/15/22 08:58 History and Physical has been reviewed, including an updated exam of the patient. There are NO changes in the patient's condition. Risks, benefits, and alternatives have been discussed and questions answered. Patient agrees to proceed with procedure.
--- NOTE | 2022-12-15 08:59 | PM.HPGS ---
History of Present Illness History of Present Illness Consent: Risks, benefits, and alternatives have been discussed and questions answered. Patient agrees to proceed with procedure. Chief complaint: menorrhagia with anemia Narrative: Niurka Bolden is a 42 year old female with menorrhagia. Patient had hysteroscopy with D&C and benign findings. Patient has elected to proceed with endometrial ablation with Ayde device. Risks of infection, bleeding, perforation, and failure are reviewed. Patient voices understanding and agrees to proceed. Review of Systems Review of Systems: not repeated day of surgery; patient states no changes in status PMFSH Past Medical History Medical History Elevated liver enzymes Gastroesophageal reflux disease History of kidney stones Hx TIA/stroke w/o resid Migraine, unspecified, not intractable, without status migrainosus (normal spontaneous vaginal delivery) x2 Other and unspecified hyperlipidemia Papillary adenocarcinoma of thyroid Vitamin D deficiency Surgical History Surgical History (Updated 12/15/22 @ 09:01 by Cece Gutierrez MD) History of hysteroscopy History of thyroidectomy Hx of LASIK Family History Family History Father Family history of rheumatoid arthritis Family history of liver disease Diabetes mellitus Hypertension Hyperlipidemia Mother Cerebrovascular accident Diabetes mellitus Heart disease Hyperlipidemia Hypertension Social History Social History Smoking status: Never smoker Second hand tobacco smoke exposure: No Alcohol intake: never Substance use: never Substance use type: does not use Living arrangements: with family Gender identity (if verbalized by the patient): Female Sexual Orientation (if Verbalized by the Patient): Straight or Heterosexual Spiritual care concerns: No Agree to blood products: Yes Meds Home Medications and Allergies Home Medications Medication Instructions Recorded Confirmed Type ergocalciferol (vitamin D2) 1,250 50,000 unit PO 2XW 09/09/19 12/09/22 History mcg (50,000 unit) capsule (Vitamin D2) rosuvastatin 10 mg tablet 10 mg PO DAILY #30 tabs 09/09/19 12/09/22 Rx ferrous sulfate 325 mg (65 mg 325 mg PO DAILY #90 tabs 12/26/19 12/09/22 Rx iron) tablet aspirin 81 mg tablet 81 mg PO DAILY 10/30/20 12/09/22 History levothyroxine 75 mcg tablet 75 mcg PO DAILY 10/30/20 12/09/22 History (Synthroid) multivit-iron 18 mg-folic acid 400 1 tablet PO DAILY 10/30/20 12/09/22 History mcg-calcium 500 mg-minerals tablet (Women's One Daily) omega-3 fatty acids 1,000 mg PO DAILY 10/30/20 12/09/22 History levothyroxine 88 mcg tablet 88 mcg PO 3XW 11/07/22 12/09/22 History (Synthroid) metformin 500 mg tablet,extended 500 mg PO BID 11/07/22 12/09/22 History release 24 hr phentermine 15 mg capsule 15 mg PO DAILY 11/07/22 12/09/22 History atogepant 30 mg tablet (Qulipta) 30 mg PO DAILY 11/12/22 12/09/22 History famotidine 40 mg tablet 40 mg PO DAILY 11/12/22 12/09/22 History omeprazole 40 mg capsule,delayed 40 mg PO DAILY #30 caps 11/24/22 12/09/22 Rx release Allergies Allergy/AdvReac Type Severity Reaction Status Date / Time pseudoephedrine Allergy Unknown Palpitation Verified 11/24/22 10:12 s butorphanol [From Stadol] Allergy Itching Verified 11/24/22 10:12 erythromycin base AdvReac Intermediate Nausea Verified 11/24/22 10:12 artichoke AdvReac Difficulty Verified 11/24/22 10:12 Swallowing LACTOSE INTOLERANT AdvReac Unknown upset Uncoded 11/24/22 10:12 stomach Exam Const: General: healthy appearing and alert Orientation/consciousness: patient oriented x3 Resp: Effort & Inspection: normal respiratory effort GI: GI Palp: Yes Soft to palpation, No Tenderness to
[2022-12-15 09:49] VITALS: BP 128/84; PULSE 83; RESP 18; TEMP 37.1; O2SAT 100
--- NOTE | 2022-12-15 10:04 | WPDANESEPPF ---
Anes - Initial Pre Proc Eval Procedure: Operation Date: 12/15/22 11:15 Proposed Procedures p Hysteroscopy with Ayde Ablation - Cece Gutierrez MD Date/Time: 12/15/22 10:04 Surgeon: Cece Gutierrez MD Pre Op Diagnosis: menorrhagia with anemia Patient Data Age: 42 Gender: F Height: 1.55 m Weight: 63.9 kg Last Vital Signs Temp 37.1 C 12/15/22 09:49 Pulse 83 12/15/22 09:49 Resp 18 12/15/22 09:49 BP 128/84 12/15/22 09:49 Pulse Ox 100 12/15/22 09:49 O2 Del Method Room Air 12/15/22 09:49 Allergies Allergy/AdvReac Type Severity Reaction Status Date / Time pseudoephedrine Allergy Unknown Palpitation Verified 12/15/22 09:40 s butorphanol [From Stadol] Allergy Itching Verified 12/15/22 09:40 erythromycin base AdvReac Intermediate Nausea Verified 12/15/22 09:40 artichoke AdvReac Difficulty Verified 12/15/22 09:40 Swallowing LACTOSE INTOLERANT AdvReac Unknown upset Uncoded 12/15/22 09:40 stomach Home Medications Medication Instructions Recorded Confirmed Type ergocalciferol (vitamin D2) 1,250 50,000 unit PO 2XW 09/09/19 12/15/22 History mcg (50,000 unit) capsule (Vitamin D2) rosuvastatin 10 mg tablet 10 mg PO DAILY #30 tabs 09/09/19 12/15/22 Rx ferrous sulfate 325 mg (65 mg 325 mg PO DAILY #90 tabs 12/26/19 12/15/22 Rx iron) tablet aspirin 81 mg tablet 81 mg PO DAILY 10/30/20 12/15/22 History levothyroxine 75 mcg tablet 75 mcg PO DAILY 10/30/20 12/15/22 History (Synthroid) multivit-iron 18 mg-folic acid 400 1 tablet PO DAILY 10/30/20 12/15/22 History mcg-calcium 500 mg-minerals tablet (Women's One Daily) omega-3 fatty acids 1,000 mg PO DAILY 10/30/20 12/15/22 History levothyroxine 88 mcg tablet 88 mcg PO 3XW 11/07/22 12/15/22 History (Synthroid) metformin 500 mg tablet,extended 500 mg PO BID 11/07/22 12/15/22 History release 24 hr phentermine 15 mg capsule 15 mg PO DAILY 11/07/22 12/15/22 History atogepant 30 mg tablet (Qulipta) 30 mg PO DAILY 11/12/22 12/15/22 History famotidine 40 mg tablet 40 mg PO DAILY 11/12/22 12/15/22 History omeprazole 40 mg capsule,delayed 40 mg PO DAILY #30 caps 11/24/22 12/15/22 Rx release Patient hx anesthesia problems: other (nightmares) Family hx anesthesia problems: none Results Review: All pre-operative results and documents have been reviewed as part of the pre-operative evaluation. [facility] Past Medical History Medical History Elevated liver enzymes Gastroesophageal reflux disease History of kidney stones Hx TIA/stroke w/o resid Migraine, unspecified, not intractable, without status migrainosus (normal spontaneous vaginal delivery) x2 Other and unspecified hyperlipidemia Papillary adenocarcinoma of thyroid Vitamin D deficiency Surgical History Surgical History History of hysteroscopy History of thyroidectomy Hx of LASIK Family History Family History Father Family history of rheumatoid arthritis Family history of liver disease Diabetes mellitus Hypertension Hyperlipidemia Mother Cerebrovascular accident Diabetes mellitus Heart disease Hyperlipidemia Hypertension Social History Social History Smoking status: Never smoker Second hand tobacco smoke exposure: No Alcohol intake: never Substance use: never Substance use type: does not use Living arrangements: with family Gender identity (if verbalized by the patient): Female Sexual Orientation (if Verbalized by the Patient): Straight or Heterosexual Spiritual care concerns: No Agree to blood products: Yes Anes - Eval Final PreProcedure Day of Procedure 12/15/22 10:04 Patient weight: normal Heart: regular rate and rhythm Lungs: clear to auscultation
[2022-12-15] MEDS: LACTATED RINGERS 1,000 ML 30 ML IV CONT (10:12)
[2022-12-15] MEDS: ACETAMINOPHEN 500 MG TABLET 1000 MG PO (10:13)
[2022-12-15 10:29] LABS: INR 0.9
[2022-12-15 10:30] LABS: Partial Thromboplastin Time 27.2 SECONDS (22.3-36.8)
--- NOTE | 2022-12-15 10:38 | W.PM.PROC2 ---
Procedure Note - Detailed Date of Procedure 12/15/22 Pre-op Diagnosis menorrhagia with anemia Post-op Diagnosis Same Procedure Performed Ayde endometrial ablation Surgeon Cece Gutierrez MD Anesthesia MAC Findings the uterus sounds to 8cm and appears grossly normal Description of Procedure The patient is taken to the operating room and placed under anesthesia in the dorsal lithotomy position. She was prepped and draped the usual sterile fashion. Nisland speculum was placed in the vagina and the cervix grasped on the anterior lip with a tenaculum. The uterus is sounded to 8cm. The hysteroscope was placed with no abnormalities noted it is removed. The cervix was then serially dilated to an 8 Hegar. The Ayde endometrial device is opened and placed. The cavity assessment passed on the 1st attempt. The treatment cycle lasted a full 2minutes. The device is removed and the hysteroscope was replaced. Good ablation effect is noted. All instruments are removed. Sponge, needle, and instrument counts are correct per the OR staff. Patient is awakened from anesthesia and taken to recovery in stable condition. Estimated Blood Loss 5 Drains No Packing No Pathology None sent Complications No immediate complications Condition Stable Disposition PACU
[2022-12-15 10:39] VITALS: BP 130/86; PULSE 86; RESP 16; O2SAT 95
[2022-12-15 11:00] VITALS: BP 134/85; PULSE 77; RESP 16; O2SAT 95
[2022-12-15 11:15] VITALS: BP 145/84; PULSE 72; RESP 16
== END 2022-12-15 11:26 | disposition home or self-care (01) ==
PROVIDERS: Anesthesiology; PCP Nurse Practitioner; Visit Provider Obstetrics & Gynecology Gynecology
PROC: 0U5B8ZZ Destruction of Endometrium, Via Natural or Artificial Opening Endoscopic (ICD-10-PCS; CPT 58563; principal; 2022-12-15 11:15)
DX: N92.0 Excessive and frequent menstruation with regular cycle (principal); D64.9 Anemia, unspecified; E89.0 Postprocedural hypothyroidism; E55.9 Vitamin D deficiency, unspecified; Z86.73 Personal history of transient ischemic attack (TIA), and cerebral infarction without residual deficits; K21.9 Gastro-esophageal reflux disease without esophagitis; E78.49 Other hyperlipidemia; Z85.850 Personal history of malignant neoplasm of thyroid; Z79.82 Long term (current) use of aspirin; Z79.84 Long term (current) use of oral hypoglycemic drugs
CPT/HCPCS: 58563; 36415; 85610; 85730; A9270; J2250; J2704; J7120

== ENCOUNTER 2023-01-28 08:09 | Emergency (ER) | payer BC, SELFPAY ==
[2023-01-28] VITALS (10 sets, daily range): BP systolic 135–157; BP diastolic 79–96; PULSE 70–101; RESP 18; TEMP 36.6; O2SAT 100
--- NOTE | ~2023-01-28 | CT_ITS ---
EXAMINATION: CT abdomen pelvis wo con DATE: 01/28/2023 09:30 INDICATION: Left lower quadrant abdominal pain and hematuria. Prior nephrolithiasis. TECHNIQUE: Computed tomography (CT) of the abdomen and pelvis was performed without intravenous contr ast. Automated exposure control and iterative reconstruction technique were employed. The dose-length product was 168.33 mGy-cm. COMPARISON: 06/23/2014 FINDINGS: Lung bases are clear. Heart size is normal. No pericardial or pleural effusion. There are few small c alcified gallstones within the normal gallbladder. Liver, spleen, pancreas, bilateral adrenal glands and right kidney are normal. 2 mm nonobstructing stone in the distal left ureter approximately 3 cm f rom the ureterovesicular junction with mild left hydronephrosis. No other urolithiasis. Approximate 4 cm fibroid at the right uterine fundus. Bladder and bilateral adnexa are unremarkable. Bowels includ ing the appendix are normal. No free intraperitoneal gas or fluid. No pathologically enlarged abdomin al or pelvic lymphadenopathy. Bones are unremarkable. IMPRESSION: 1. 2 mm obstructing distal left ureteral stone with mild left hydronephrosis. 2. Uterine fibroid. Reviewed, dictated and finalized at location B.
--- NOTE | ~2023-01-28 | XR_ITS ---
EXAMINATION: XR abdomen/kub 1V DATE: 01/28/2023 11:01 INDICATION: Left ureteral stone. TECHNIQUE: A supine view of the abdomen on 2 radiographs was obtained. COMPARISON: CT abdomen and pelvis 01/28/2023 FINDINGS: There are no dilated loops of bowel. There is a 2 mm stone in distal left ureter. IMPRESSION: 1. 2 mm stone in distal left ureter. Reviewed, dictated and finalized at location A.
[2023-01-28 08:41] LABS: Basophils Absolute Auto 0.1 K/mm3 (0.0-0.1); Basophils Percent Auto 0.7 % (0.2-1.2); Eosinophils Absolute Auto 0.2 K/mm3 (0-0.3); Eosinophils Percent Auto 3.5 % (0-4.4); Hematocrit 40.6 % (37.0-47.0); Immature Granulocyte Absolute 0.03 K/mm3 (0.00-0.031); Immature Granulocyte Percent A 0.4 % (0-0.5); Lymphocytes Absolute Auto 1.32 K/mm3 (0.9-3.2); Mean Corpuscular Hemoglobin 24.3 pg (26-34); Mean Platelet Volume 9.4 fl (7.4-10.4); Monocytes Absolute Auto 0.4 K/mm3 (0.1-0.6); Monocytes Percent Auto 6.3 % (2.6-8.5); Neutrophils Absolute Auto 4.9 K/mm3 (1.3-6.7); Neutrophils Percent Auto 70.1 % (45.5-73.1); Platelet Count Result 328 k/mm3 (150-375); Red Blood Count 5.34 M/mm3 (4.2-5.4); Red Cell Distribution Width 14.9 % (11.5-14.5); White Blood Count 6.9 K/mm3 (4.5-10.0)
[2023-01-28 08:46] LABS: Bacteria Urine None Seen /hpf; Non Pathogenic Casts 0-2; RBC Urine >100 /hpf (0-2); Squamous Epithelial Cell Urine Occasional /hpf (Few); WBC Urine 0-5 /hpf
[2023-01-28 08:51] LABS: Appearance Urine Cloudy (Clear); Bilirubin Urine Negative (Negative); Blood Urine 3+ (Negative); Color Urine Orange (Yellow); Glucose Urine UA Negative (Negative); Ketones Urine Trace mg/dL (Negative); Leukocyte Esterase Ur Trace LEU/UL (Negative); Nitrate Urine Negative (Negative); Protein Urine 1+ mg/dL (Negative); Specific Grav Ur 1.024 (1.001-1.035); pH Urine 8.5 (5.0-9.0)
--- NOTE | 2023-01-28 08:51 | PC.NURSE ---
Pt currently refusing blood draw, pt was educated on importance of labs. Pts visitor stated, I don't know why we need blood drawn anyways. She has a history of kidney stones why can't we speed this up.
--- NOTE | 2023-01-28 08:52 | PC.NURSE ---
Pt allowing blood draw to speed things up.
[2023-01-28 09:01] LABS: Add Urine Microscopic? YES
[2023-01-28 09:13] LABS: Alanine Aminotransferase 25 U/L (6-35); Albumin Level 4.6 g/dL (3.5-5.1); Alkaline Phosphatase 71 U/L (38-126); Anion Gap 9 mmol/L (8-16); Aspartate Amino Transferase 27 U/L (14-36); Bilirubin,Total 1.5 mg/dL (0.2-1.3); Blood Urea Nitrogen 13 mg/dL (7-17); Calcium 9.2 mg/dL (8.4-10.2); Carbon Dioxide 26 mmol/L (22-30); Chloride 101 mmol/L (98-107); Estimated CRCL calculation 87 ml/min; Estimated Glomerular Filt Rate > 60; Glucose 124 mg/dL (65-110); Potassium 3.9 mmol/L (3.4-5.0); Sodium 136 mmol/L (137-145)
--- NOTE | 2023-01-28 09:35 | ED.GENADULT ---
HPI - General Adult General Chief complaint: Back Pain/Injury Stated complaint: kidney stones Time Seen by Provider: 01/28/23 09:02 Source: patient Mode of arrival: ambulatory Limitations: no limitations History of Present Illness HPI narrative: Patient is a 42-year-old female who presents ED with report of left-sided abdominal pain. Patient reports pain began suddenly around 6:55 AM this morning in her left lower abdomen. She tried taking naproxen without relief. She mentioned having a brief mild episode of pain last week, but states the pain today was much more severe. She has a history of kidney stone several years ago which felt similar. She did require surgical treatment of her previous stones. Saw Dr. Murray in the past. Patient reports having hematuria this morning, denies dysuria. Denies nausea, vomiting, fevers. Denies back pain. Patient states she feels weak. Related Data Home Medications Medication Instructions Recorded Confirmed ergocalciferol (vitamin D2) 1,250 50,000 unit PO 2XW 09/09/19 12/15/22 mcg (50,000 unit) capsule (Vitamin D2) aspirin 81 mg tablet 81 mg PO DAILY 10/30/20 12/15/22 levothyroxine 75 mcg tablet 75 mcg PO DAILY 10/30/20 12/15/22 (Synthroid) multivit-iron 18 mg-folic acid 400 1 tablet PO DAILY 10/30/20 12/15/22 mcg-calcium 500 mg-minerals tablet (Women's One Daily) omega-3 fatty acids 1,000 mg PO DAILY 10/30/20 12/15/22 levothyroxine 88 mcg tablet 88 mcg PO 3XW 11/07/22 12/15/22 (Synthroid) metformin 500 mg tablet,extended 500 mg PO BID 11/07/22 12/15/22 release 24 hr phentermine 15 mg capsule 15 mg PO DAILY 11/07/22 12/15/22 atogepant 30 mg tablet (Qulipta) 30 mg PO DAILY 11/12/22 12/15/22 famotidine 40 mg tablet 40 mg PO DAILY 11/12/22 12/15/22 Allergies Allergy/AdvReac Type Severity Reaction Status Date / Time pseudoephedrine Allergy Unknown Palpitation Verified 01/28/23 08:33 s butorphanol [From Stadol] Allergy Itching Verified 01/28/23 08:33 erythromycin base AdvReac Intermediate Nausea Verified 01/28/23 08:33 artichoke AdvReac Difficulty Verified 01/28/23 08:33 Swallowing LACTOSE INTOLERANT AdvReac Unknown upset Uncoded 01/28/23 08:33 stomach Review of Systems Review of Systems: CONSTITUTIONAL: Reports generalized weakness. Denies fever, chills, or sweats. CARDIOVASCULAR: Denies chest pain. RESPIRATORY: Denies dyspnea. GASTROINTESTINAL: See HPI. GENITOURINARY: See HPI. SKIN: Denies rash or itching. MUSCULOSKELETAL: Denies back pain. NEUROLOGIC: Denies headache, numbness, or weakness. All systems reviewed & are unremarkable except as noted in HPI and below PMFSH Past Medical History Medical History Elevated liver enzymes Gastroesophageal reflux disease History of kidney stones Hx TIA/stroke w/o resid Migraine, unspecified, not intractable, without status migrainosus (normal spontaneous vaginal delivery) x2 Other and unspecified hyperlipidemia Papillary adenocarcinoma of thyroid Vitamin D deficiency Surgical History Surgical History History of hysteroscopy History of thyroidectomy Hx of LASIK Family History Family History Father Family history of rheumatoid arthritis Family history of liver disease Diabetes mellitus Hypertension Hyperlipidemia Mother Cerebrovascular accident Diabetes mellitus Heart disease Hyperlipidemia Hypertension Social History Social History Smoking status: Never smoker Second hand tobacco smoke exposure: No Alcohol intake: never Substance use: never Substance use type: does not use Living arrangements: with family Gender identity (if verbalized by the patient): Female Sexual Orientation (if Verbalized by the Patient): Straight
[2023-01-28] MEDS: ONDANSETRON INJ 4 MG/2 ML VIAL IV PUSH (09:47)
[2023-01-28] MEDS: MORPHINE SULFATE (*CRX) 4 MG/ML INJ IV PUSH (09:47)
[2023-01-28] MEDS: SODIUM CHLORIDE 0.9% IV 1,000 ML 999 ML IV CONT ×2 (09:47→10:25)
[2023-01-28] MEDS: TAMSULOSIN HCL 0.4 MG CAPSULE PO (10:48)
== END 2023-01-28 12:03 | disposition home or self-care (01) ==
PROVIDERS: Emergency Medicine; Emergency Provider Physician Assistant; PCP Nurse Practitioner
DX: N13.2 Hydronephrosis with renal and ureteral calculous obstruction (principal); D25.9 Leiomyoma of uterus, unspecified; E55.9 Vitamin D deficiency, unspecified; E78.5 Hyperlipidemia, unspecified; K21.9 Gastro-esophageal reflux disease without esophagitis; E89.0 Postprocedural hypothyroidism; Z85.850 Personal history of malignant neoplasm of thyroid; Z86.73 Personal history of transient ischemic attack (TIA), and cerebral infarction without residual deficits; Z87.442 Personal history of urinary calculi; Z79.84 Long term (current) use of oral hypoglycemic drugs; Z79.82 Long term (current) use of aspirin
CPT/HCPCS: 36415; 74018; 74176; 80053; 81001; 81025; 85025; 96361; 96374; 96375; 99284; A9270; J2270; J2405; J7030

== ENCOUNTER → 2023-02-02 16:05 | Outpatient (CLI) | payer BC, SELFPAY ==
--- NOTE | ~2023-02-02 | MM_ITS ---
EXAMINATION: MM screening julia BI w torrie HISTORY: Screening TECHNIQUE: Craniocaudal and mediolateral oblique 3-D tomosynthesis images were obtained and synthetic 2-D images were generated. CAD analysis was submitted and interpreted. COMPARISON: Comparison to multiple prior studies sequentially, with oldest reviewed study dated 03/14. BREAST PARENCHYMAL COMPOSITION: The breasts are heterogeneously dense, which may obscure small masses . FINDINGS: There are developing nodular asymmetries in the upper central aspect of the left breast, mi ddle third. The right breast is stable. There are are stable benign-appearing calcifications in the r ight breast. IMPRESSION: 1. Developing nodular asymmetries upper central left breast. 2. Additional mammographic views and possible breast ultrasound are recommended. BI-RADS Category 0: Incomplete: Needs additional imaging evaluation. Reviewed, dictated and finalized at location A. IMPRESSION: 1. Developing nodular asymmetries upper central left breast. 2. Additional mammographic views and possible breast ultrasound are recommended . BI-RADS Category 0: Incomplete: Needs additional imaging evaluation.
== END ==
PROVIDERS: PCP Obstetrics & Gynecology Gynecology; Visit Provider Obstetrics & Gynecology Gynecology
DX: Z12.31 Encounter for screening mammogram for malignant neoplasm of breast (principal); N64.89 Other specified disorders of breast
CPT/HCPCS: 77063; 77067

== ENCOUNTER → 2023-02-16 14:17 | Outpatient (CLI) | payer BC, SELFPAY ==
--- NOTE | ~2023-02-16 | MMUS_ITS ---
EXAMINATION: MM diagnostic julia LT w torrie, US breast LT limited HISTORY: Possible left breast masses on screening mammogram TECHNIQUE: Additional 3-D tomosynthesis images of the left breast were performed and synthetic 2-D im ages were generated. CAD analysis was submitted and interpreted. High resolution limited left breast ultrasound was performed. COMPARISON: 02/02/2023, 11/05/2021, 08/31/2020 FINDINGS: MAMMOGRAPHIC FINDINGS: There is persistent asymmetry in the upper left breast with an appearance similar to prior mammograms with spot compression. No discrete mass, architectural distortion, or suspicious calcification are i dentified. ULTRASOUND: There is a 10 mm x 4 mm oval, circumscribed, parallel, complex cystic and solid mass at the 1:00 loca tion, 8 cm from the nipple in the left breast with posterior acoustic enhancement and no internal vas cularity. There is a 4 mm round, hypoechoic, circumscribed mass with no posterior features or interna l vascularity within the nipple of the left breast. Cysts measuring up to 9 mm are noted at the 11:00 and 1:00 locations in the breast. IMPRESSION: 1. Probably benign sonographically detected mass in the upper outer quadrant of the left breast. 2. Recommend 6 month follow-up limited left breast ultrasound is recommended. BI-RADS category 3, probably benign findings. Reviewed, dictated and finalized at location A. IMPRESSION: 1. Probably benign sonographically detected mass in the upper outer quadrant of the left breast. 2. Recommend 6 month follow-up limited left breast ultrasound is recommended. BI-RADS category 3, probably benign findings.
== END ==
PROVIDERS: PCP Obstetrics & Gynecology Gynecology; Visit Provider Obstetrics & Gynecology Gynecology
DX: R92.8 Other abnormal and inconclusive findings on diagnostic imaging of breast (principal)
CPT/HCPCS: 76642; 77061; 77065; G0279

== ENCOUNTER 2024-01-05 09:54 | Outpatient (CLI) | payer BC, SELFPAY ==
--- NOTE | ~2024-01-05 | US_ITS ---
EXAMINATION:US venous doppler LE RT INDICATION:Right calf pain TECHNIQUE: Multiple grayscale, color flow and Doppler images of the right lower extremity deep venous systems were obtained and reviewed. COMPARISON:No prior studies for comparison. FINDINGS: The common femoral, superficial femoral and popliteal veins demonstrate normal respiratory variation, augmentation and compressibility. Color flow is also seen within the posterior tibial, pe roneal, greater saphenous and profunda veins. IMPRESSION: 1: No lower extremity deep venous thrombosis. Reviewed, dictated and finalized at location B.
== END 2024-01-05 09:55 ==
PROVIDERS: PCP Nurse Practitioner; Visit Provider Nurse Practitioner
DX: M79.661 Pain in right lower leg (principal)
CPT/HCPCS: 93971

== ENCOUNTER 2024-02-05 10:14 | Outpatient (CLI) | payer BC, SELFPAY ==
--- NOTE | ~2024-02-05 | MMUS_ITS ---
EXAMINATION: MM diagnostic julia BI w torrie, US breast LT complete HISTORY: Follow-up left breast mass TECHNIQUE: Additional 3-D tomosynthesis images of the breasts were performed and synthetic 2-D images were generated. CAD analysis was submitted and interpreted. High resolution complete left breast ult rasound was performed. COMPARISON: Comparison to multiple prior studies sequentially, with oldest reviewed study dated 03/16. BREAST PARENCHYMAL COMPOSITION: Dense: The breasts are heterogeneously dense, which may obscure small masses FINDINGS: MAMMOGRAPHIC FINDINGS: The right breast is stable without evidence for malignancy. Left breast asymmetry centrally in the le ft breast on CC view are unchanged from prior study. There are benign-appearing left breast calcifica tions. ULTRASOUND: Complete US of all 4 quadrants of the breast/s and retroareolar region was reviewed. At 1:00, 8 cm fr om the nipple there is a complex mixed solid and cystic mass measuring 12 x 7 x 11 mm without interna l vascularity or significant posterior shadowing. At 1:00, 7 cm from the nipple there is a 9 mm cyst. At 5:00, 3.5 cm from the nipple there is a 4 mm cyst. IMPRESSION: 1. Complex 12 mm left breast mass at 1:00, 8 cm from the nipple. 2. Ultrasound-guided left breast biopsy recommended. BI-RADS category 4, suspicious findings. Reviewed, dictated and finalized at location B. IMPRESSION: 1. Complex 12 mm left breast mass at 1:00, 8 cm from the nipple. 2. Ultrasound-guided left breast biopsy recommended. BI-RADS category 4, suspicious findings.
== END 2024-02-05 10:15 ==
PROVIDERS: PCP Nurse Practitioner; Visit Provider Obstetrics & Gynecology Gynecology
DX: N63.21 Unspecified lump in the left breast, upper outer quadrant (principal)
CPT/HCPCS: 76641; 77062; 77066; G0279

== ENCOUNTER 2024-04-27 12:03 | Outpatient (CLI) | payer BC, SELFPAY ==
--- NOTE | ~2024-04-27 | US_ITS ---
Limited Abdominal Sonogram: Real-time sonographic imaging of the right upper quadrant was performed. Clinical History: Atypical chest pain Findings: The liver appears normal with no evidence of mass lesion or bile duct dilatation. Main por jennifer vein demonstrates normal direction of flow. The gallbladder is well distended, and contains multi ple echogenic, shadowing gallstones. No gallbladder wall thickening. The common bile duct measures 3 mm. The visualized pancreas, aorta, and IVC are unremarkable. Impression: Cholelithiasis. Reviewed, dictated and finalized at location M. ELLA SUPERVISOR Impression: Cholelithiasis.
== END 2024-04-27 12:04 | disposition home or self-care (01) ==
LOC: MICIMG 12:03
PROVIDERS: PCP Nurse Practitioner; Visit Provider Nurse Practitioner
DX: R07.89 Other chest pain (principal); K80.20 Calculus of gallbladder without cholecystitis without obstruction
CPT/HCPCS: 76705

== ENCOUNTER 2024-05-04 13:00 | Outpatient (CLI) | payer BC, SELFPAY ==
--- NOTE | ~2024-05-04 | US_ITS ---
US pelvic complete Ordering provider: Luisana Louise, CHERYLE History: . LLQ PAIN . Comparison: None. Technique: Transabdominal and endovaginal ultrasound of the pelvis (Doppler ultrasound interrogation techniques used as needed for this exam.) FINDINGS: CERVIX: Normal. UTERUS: Measures 8.3x 5.3x 5.8 cm in length which is within normal limits and is anteverted. Hypoech oic area is seen suggestive of a fibroid. ENDOMETRIUM: Normal in thickness measuring 5 mm. (Note: the premenopausal endometrium may measure up to 16 mm when in the secretory phase.) No endometrial masses, cysts or fluid. CUL DE SAC: No free fluid. RIGHT OVARY: Normal in size measuring 2.3x 1.7x 1.8 cm. Normal echotexture. Doppler vascular flow pre sent. LEFT OVARY: Normal in size measuring 2.5x 1.7x 2.2 cm. Normal echotexture. Doppler vascular flow pres ent. Simple cyst is seen measuring 2.6 x 2.4 x 2.7 cm. ADNEXA: Normal. No mass. IMPRESSION: Small fibroid uterus. Simple cyst in the right ovary. Otherwise, normal pelvic ultrasound. Reviewed, dictated and finalized at location A. NISTRATIVE NURSING SUPERVISOR
== END 2024-05-04 13:01 | disposition home or self-care (01) ==
LOC: MICIMG 13:02
PROVIDERS: PCP Obstetrics & Gynecology Gynecology; Visit Provider Nurse Practitioner Women's Health
DX: R10.2 Pelvic and perineal pain (principal); R10.32 Left lower quadrant pain; D25.9 Leiomyoma of uterus, unspecified
CPT/HCPCS: 76856

== ENCOUNTER 2024-07-06 13:52 | Outpatient (CLI) | payer BC, SELFPAY ==
--- NOTE | ~2024-07-06 | MR_ITS ---
EXAMINATION: MR brain/brain stem wo/w con DATE: 07/06/2024 14:40 INDICATION: Changes ischemic episode with dizziness and right-sided numbness and tingling TECHNIQUE: Magnetic resonance imaging (MRI) of the brain and brainstem was performed without and with 12 mL Multihance intravenous contrast. Sequences included sagittal and axial T1-weighted SE, axial d iffusion-weighted FS SE, axial T2*-weighted GRE, axial T2-weighted FLAIR, and axial T2-weighted FSE. Postcontrast axial and coronal T1-weighted SE was obtained. Apparent diffusion coefficient (ADC) maps were created. COMPARISON: None. FINDINGS: There are no areas of restricted diffusion to suggest acute infarction. No intracranial hemorrhage or abnormal intracranial mass lesion. There are no intraparenchymal signal abnormalities seen on the ot her pulse sequences. The ventricles are symmetric and normal in size. There are no abnormal extra-axi al fluid collections. Flow voids are seen in the cerebral arteries on the T2-weighted sequences consi stent with their expected patency. Visualized orbits and soft tissues are unremarkable. Mild mucoperi osteal thickening the bilateral ethmoid sinuses. There are no areas of abnormal enhancement on the po st contrast images. IMPRESSION: 1. Normal brain. No acute intracranial process or abnormally enhancing brain lesions. Reviewed, dictated and finalized at location B. UM EXHIBIT DESIGNER IMPRESSION: 1. Normal brain. No acute intracranial process or abnormally enhancing brain le sions.
== END 2024-07-06 13:53 | disposition home or self-care (01) ==
LOC: MICIMG 13:53
PROVIDERS: PCP Nurse Practitioner; Visit Provider Nurse Practitioner
DX: R20.0 Anesthesia of skin (principal); R20.2 Paresthesia of skin; Z86.73 Personal history of transient ischemic attack (TIA), and cerebral infarction without residual deficits
CPT/HCPCS: 70553; A9577

== ENCOUNTER 2025-03-17 15:01 | Outpatient (CLI) | payer BC, SELFPAY ==
--- NOTE | ~2025-03-17 | MM_ITS ---
EXAMINATION: MM screening julia BI w torrie HISTORY: Screening TECHNIQUE: Craniocaudal and mediolateral oblique 3-D tomosynthesis images were obtained and synthetic 2-D images were generated. CAD analysis was submitted and interpreted. COMPARISON: Comparison to multiple prior studies sequentially, with oldest reviewed study dated 12/21/2019. BREAST PARENCHYMAL COMPOSITION: Dense: The breasts are heterogeneously dense, which may obscure small masses FINDINGS: There is no evidence of suspicious mass, calcification, or architectural distortion to suggest malignancy in either breast. There has been no suspicious interval change. IMPRESSION: 1. No mammographic evidence of malignancy. 2. Recommend routine screening mammography in one year. BI-RADS Category 1: Negative Reviewed, dictated and finalized at location B.
== END 2025-03-17 15:02 | disposition home or self-care (01) ==
PROVIDERS: PCP Obstetrics & Gynecology Gynecology; Visit Provider Obstetrics & Gynecology Gynecology
DX: Z12.31 Encounter for screening mammogram for malignant neoplasm of breast (principal)
CPT/HCPCS: 77063; 77067

== ENCOUNTER 2025-03-17 18:57 | Emergency (ER) | payer BC, SELFPAY ==
--- OUTSIDE RECORDS SUMMARY | 2025-03-17 18:59 | XMS_ITS | Data Portability ---
Author Organization [place] - [facility], Main Office Address [address] [facility] [address] [place] [address] Assessment No assessment recorded. Plan of Treatment Reminders Order Date Submit Date Provider Last Modified By Organization Details Last Modified Time Details Appointments None recorded. Lab None recorded. Referral None recorded. Procedures None recorded. Surgeries None recorded. Imaging None recorded. Medication Orders hydrocorti sone acetate 25 mg rectal suppositor y 2019 020 [employer] [id number], [address] [place], [place], [id number], 0 12:42:10 Patient TargetsNo targets recorded. Patient Instructions Encounter Date Encounter Id Patient Instructions Last Modified By Organization Details Last Modified Time 06/27/2019 [id number] hemorrhoids: car e instructions Not available 06/27/2019 21:49:12 heavy menstrual periods: care instructions Not available 06/27/2019 21:49:12 Patient counsele d to F/U immediately if temp. greater than 100.4, if is unable to urinate, increased rectal pain or any other concerns. Not available 06/27/2019 21:43:27 She will follow up in about 1 - 2 weeks and I will treat her LL internal hemorrhoid. I discussed with her she will be a total of 5 - 6 treatments. On today's visit I spent a total of 55 minutes meom-sa-bjde with the patient and over 50% of this time was spent discussing treatment options, risks/benefits of each option and alternatives and answering her questions. Not available 06/27/2019 21:44:17 07/04/2019 [id number] Patient counsele d to F/U immediately if temp. greater than 100.4, if is unable to urinate, increased rectal pain or any other concerns. Not available 07/10/2019 19:47:23 She will follow up in 2 - 3 weeks and I will treat her RA internal hemorrhoid. I discussed with her again that she will be a total of 5 - 6 treatments. Not available 07/10/2019 19:47:55 07/26/2019 [id number] Patient counsele d to F/U immediately if temp. greater than 100.4, if is unable to urinate, increased rectal pain or any other concerns. Not available 07/26/2019 13:56:58 She will follow up in 3 - 4 weeks and I will retreat her RP internal hemorrhoid. We will then wait another 3 - 4 weeks and probably retreat both her LL and RA. We may or may not do a 6th treatment about 8 weeks later. Not available 07/26/2019 13:58:06 09/01/2019 [id number] She will follow up in about 8 weeks and I will try to retreat all 3 areas. We may or may not do another treatment 6 - 8 weeks after that. If she does not improve, she will need to see a surgeon. Not available 09/12/2019 12:45:34 Reason for Referral None Reported. Problems Name Problem SNOMED Code Status Onset Date Resolution Date Notes Provider Name and Address Organization Details Recorded Time Pile easily reducible 685754317 Active 2019 Tx #1: 06/27/19 1.2 x 10 RP Tx #2: 0 1.2 x 9 LL Tx #3: 07/26/19 1.1 x 6 RA Tx #4: 0 1.2 x 8 RP and 1.2 x 5 LL Tx #5: 10/27/19 Rochelle Felix MD [address] [place] [address], [address] [place] [address] [facility] 0 19:40:10 External hemorrhoids 96819050 Active 2019 Rochelle Felix MD [address] [place] [address], [place], [address], [facility] 0 21:34:32 Primary lactose intolerance 517577317 Active 2019 Rochelle Felix MD [address] [place] [address],[address], [address], [facility] 0 21:36:02 History of polyp of colon 111949491 Active 2019 Rochelle Felix MD [address] [place] [address],[address], [address], [facility] 0 21:36:59 Papillary thyroid carcinoma 987615398 Active 2019 Rochelle Felix MD [address] [place] [address],[address], [address] [place] [address] 5, [facility] 0 21:38:31 Menorrhagia 404092045 Active 2019 Rochelle Felix MD [address] [place] [address],[address], [address], [facility] 0 21:39:09 Steatotic liver disease 753571596 Active 2019 Rochelle Felix MD [address] [place] [address],[address], [address], [facility] 0 21:40:30 History of urinary stone 445605834 Active 2019 Rochelle Felix MD [address] [place] [address],[address], [address], [facility] 0 21:40:56 History of transient ischemic attack 657964712 Active 2019 Rochelle Felix MD [address] [place] [address],[address], [address], [facility] 0 21:41:18 Problem Notes None recorded. Procedures Surgical History Date Name Laterality Status Provider Name and Address Organization Details Recorded Time 09/01/19 IRC completed Rochelle Felix MD [address] [place] [address],[address], [place], [address], [facility] 09/12/2019 12:35:28 07/26/19 20 IRC completed Rochelle Felix MD [address] [place] [address],[address], [place], [address] 07/26/2019 13:52:58 07/04/19 IR completed Rochelle Felix MD [address] [place] [address],[address], [place], [address] 07/10/2019 19:44:20 06/27/19 20 IRC completed Rochelle Felix MD [address] [place] [address],[address], [place], [address] 06/27/2019 21:32:40 03/22/20 19 Date of Last Mammogram completed Herlindashanna Melvin [facility] 06/27/2019 11:13:27 03/17/20 19 Thyroidectomy completed Rochelle Felix MD [address] [place] [address],[address], [place], [address] 06/27/2019 21:23:33 06/22/19 19 Date of Last Pap Smear [facility] 06/27/2019 11:13:31 02/20/20 10 Colonoscopy completed Rochelle Felix MD [address] [place] [address],[address], [place], [address] 07/26/2019 17:41:18 05/22/20 06 vaginal delivery of fetus completed Rochelle Felix MD [address] [place] [address],[address], [place], [address], [facility] 06/27/2019 21:28:23 06/22/19 02 ureter calculus removal completed Rochelle Felix MD [address] [facility],[address], [place], [address], [facility] [place] 06/27/2019 21:27:37 Imaging Results None recorded. Procedure Notes None recorded. Medical Equipment None Reported. Allergies Allergen ID Allergen Name Allergen Category Reaction Reaction Severity Criticality Documentation Date Start Date Code Code System Note Provider Name and Address Organization Details Recorded Time 2902 E-Mycin medicatio n Not available Not available Not available 06/27/2019 8 RxNorm Herlinda manjarrez, [facility] [place] 0 11:06:12 Medications Name Sig Start Date Stop Date Status Note LastModified by Organization Details LastModified Time hydrocort isone-pra moxine 2.5 %-1 % rectal cream active Not Available Not Available Not Available metronida zole 0.75 % (37.5 mg/5 gram) vaginal gel 06/27 completed Not Available Not Available Not Available Synthroid 100 mcg tablet active Not Available Not Available Not Available terconazo le 0.8 % vaginal cream 06/27 completed Not Available Not Available Not Available Anucort-H C 25 mg supposito ry Insert 1 supposit ory twice a day by rectal route as directed for 14 days. active Not Available Not Available No t Available phentermi ne 15 mg capsule TK 1 C PO D active Not Available Not Available No t Available oxycodone -acetamin ophen 5 mg-325 mg tablet 06/27 completed Not Available Not Available Not Available lorazepam 0.5 mg tablet 06/27 completed Not Available Not Available Not Available ferrous sulfate 325 mg (65 mg iron) tablet active Not Available Not Available Not Available levothyro xine 125 mcg tablet 06/27 completed Not Available Not Available Not Available lidocaine 5 % topical patch 06/27 completed Not Available Not Available Not Available Synthroid 88 mcg tablet active Not Available Not Available Not Available omeprazol e 20 mg capsule,d elayed release active Not Available Not Available Not Available Synthroid 112 mcg tablet TK 1 T PO D active Not Available Not Available No t Available ergocalci ferol (vitamin D2) 1,250 mcg (50,000 unit) capsule TK 1 C PO TWO TIMES A WEEK WITH FOOD active Not Available Not Available No t Available lorazepam 1 mg tablet 06/27 completed Not Available Not Available Not Available cefdinir 300 mg capsule 06/27 completed Not Available Not Available Not Available amoxicill in 875 mg-potass ium clavulana te 125 mg tablet 06/27 completed Not Available Not Available Not Available rosuvasta tin 10 mg tablet TK 1 T PO D active Not Available Not Available No t Available Oysco 500/D 500 mg-5 mcg (200 unit) tablet 06/27 completed Not Available Not Available Not Available omeprazol e 20 mg tablet,de layed release active Not Available Not Available Not Available Adult Aspirin Regimen 81 mg tablet,de layed release Take 1 tablet every day by oral route. active 06/27/19: She takes for a history of a possible TIA/CVA. She also takes Excedrin 2 tablets about 2 times monthly. She denies taking any other aspirin products . Not Available Not Available Not Available Vitals Date Recorded Body height Respiratory rate Body mass index (BMI) Body weight Body temperature Heart rate Systolic And Diastolic Provider Name and Address Organization Details Last Updated DateTime 0 154.94 cm 12 /min 30 kg/m2 35103.1 9 g 98.6 [degF] 94 /min 129/85 mm[Hg] Herlinda Pengan [facility] 0 11:18:40 Date Recorded Body height Provider Name an d Address Organization Details Last Updated DateTime 07/04/2019 154.94 cm Herlinda [place] [facility] [place] 07/04/2019 12:58:08 Date Recorded Body height Provider Name an d Address Organization Details Last Updated DateTime 07/26/2019 154.94 cm [place] [facility] [place] 07/26/2019 10:30:49 Date Recorded Body height Provider Name an d Address Organization Details Last Updated DateTime 09/01/2019 154.94 cm [place] [facility] [place] 09/01/2019 14:25:32 Social History Question Answer Notes LastModified by Organizat ion Details LastModified Time Tobacco Smoking Status Never Smoker Herlinda Olegariomanuelito manjarrez [facility] 06/27/2019 11:11:44 Alcohol Use No Information n ot available 06/27/2019 Caffeine Use Yes Information not available 06/27/2019 Caffeine Type Cola Information not available 06/27/2019 Caffeine Amount 3 Weekly Information not available 06/27/2019 Illicit Drug Use No Information not available 06/27/2019 What Was The Date Of Your Most Recent Tobacco Screening? 06/27/2019 Information not available 06/27/2019 Sex: Unknown Functional Status Question Answer Note LastModified by Organizat ion Details LastModified Time Do you or have you ever used smokeless tobacco? Never used smokeless tobacco Information not available 06/27/2019 Do you or have you ever used e-cigarettes or vape? Never used electronic cigarettes Information not available 06/27/2019 Mental Status None recorded. Family History Relationship Description Onset Age of this Age Resolved Age Notes LastModified by Organization Details LastModified Time Maternal Grandmother Malignant tumor of cervix 62 62 Not available 2019 11:10:41 Mother Cerebrovascu lar accident 40 Not available 11/2019 11:10:51 Unspecified Relation Malignant tumor of colon M cousin Not available 06/27/2019 11:11:11 Father Diabetes mellitus 64 Not available 2019 11:11:36 Medical History Condition Response Coronary Artery Disease N Other Y Atrial Fibrillation N Kidney Stones Y Hyperthyroidism N Hernia N Hypothyroidism N Glaucoma N Depression N COPD N Accidental Bowel Leakage N Headaches/Migraines Y Deep Vein Thrombosis N Anxiety Disorder N Cardiac Dysrhythmia N MRSA/VRE Exposure N Genital Herpes N Diverticulosis N Cancer Y Stroke Y Head Trauma N Genital Warts N Crohn's Disease N Liver Disease/Hepatitis N HIV/AIDS N High Cholesterol N Irritable Bowel Syndrome Y Kidney Disease N Autoimmune Disease N Anemia N Celiac Disease N Arthritis/Gout N Anal/Rectal Trauma/Injury N Diabetes N Cataracts N Bleeding Disorder N Seizures/Epilepsy N Congestive Heart Failure (CHF) N Diverticulitis N Heart Attack N Asthma N Reflux/GERD N Ulcerative Colitis N Sleep Apnea N Mitral Valve Prolapse N Aneurysm N Heart Disease N Pulmonary Embolism N Hypertension N Colon/Rectal Polyps Y Gynecological History Statement/Question Response Number of Pregnancies? 4 Date of Last Pap Smear 06/22/2018 Date of Last Mammogram 03/22/2019 Number of Vaginal Deliveries? 2 Number of C-Sections? 0 Could You Be or Are You Currently Pregna nt? N Accidental Bowel Leakage Post Delivery? Y Obstetrics History GPAL:G 0 P 0 0 0 0 Past Encounters Encounter ID Performer Location Encounter Start Date Encounter Closed Date Diagnosis/Indication Diagnosis SNOMED-CT Code Diagnosis ICD10 Code Diagnosis IMO Codes Diagnosis Note [id number] Rochelle Felix MD Main Office [address] [facility] [address] [place] [address] 06/27/2019 11:05:36 06/27/2019 12:54:00 Pile easily reducible 337278275 K64.1 Stage 2 - 3 internal hemorrhoid s: I do think she would benefit from infrared coagulatio n and she wants to proceed. Full informed consent was given including risks/bene fits and alternativ es. All questions were answered. Her first IRC treatment was done today on the RP internal hemorrhoid . I advised she cannot take Excedrin while she is going through treatment. She can take aspirin free Excedrin if she needs. I advised she should stay on the baby aspirin given her questionab le history of TIA/CVA. If she does develop persistent heavy bleeding, she needs to go off of the aspirin. External hemorrhoids 239 [address] K64.4 These will hopefully improve with IRC. She understand s the only way to directly treat external hemorrhoid s/skin tags would be with a surgical excision. She does not wish to pursue this right now. She may eventually want to see a colon and rectal surgeon for the largest fleshy tag at the posterior anal opening. Primary la ctose intolerance 963548095 E73.8 I advised she needs to avoid dairy products at least until I can get her hemorrhoid s treated. She needs to eat a high fiber diet and drink plenty of water to try to maintain daily and soft (Avella Scale type 4) BM's. History of polyp of colon 930130341 Z86.010 I would like to have a copy of the pathology report from her colonoscop y from 2008. Given her bleeding we might go ahead and get a repeat scope (although the bleeding is hemorrhoid al). We will talk about this further when she follows up. She does want to have another scope soon. Papillary thyroid carcinoma 462631859 C73 She is following with her radiation oncologist (Luke White MD) and endocrinol ogist. Menorrhagia 888326155 N9 2.0 I advised she needs to see her gyne (Cece Gutierrez MD) and discuss possibly having an endometria l ablation. Steatotic liver disease 765805051 K76.0 She is on the Crestor. History of urinary stone 791359062 Z87.442 History of transient ischemic attack 470519856 Z86.73 This is questionab le given that her symptoms lasted for about 6 months. 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 For now she is going to stay on the 81 mg aspirin. [id number] Rochelle Felix MD Main Office [address] [facility] [address] [place] [address] 07/04/2019 12:57:12 07/04/2019 13:36:37 Pile easily reducible 888747630 K64.1 Stage 2 - 3 internal hemorrhoid s: She is doing well with infrared coagulatio n. Her 2nd treatment was done today on the LL. I advised she cannot take Excedrin while she is going through treatment. She can take aspirin free Excedrin if she needs. I advised she should stay on the baby aspirin given her questionab le history of TIA/CVA. If she does develop persistent heavy bleeding, she needs to go off of the aspirin. External hemorrhoids 239 [address]3022 K64.4 These are improving with IRC. She understand s the only way to directly treat external hemorrhoid s/skin tags would be with a surgical excision. She does not wish to pursue this right now. She may eventually want to see a colon and rectal surgeon for the largest fleshy tag at the posterior anal opening. Primary la ctose intolerance 705037575 E73.8 She has been doing well with her diet. Menorrhagia 401332646 N9 2.0 She did have an appointmen t with her gynecologi st but they did not talk in depth about doing an endometria l ablation. [id number] Rochelle Felix MD Main Office [address] [place] [address] 07/26/2019 10:30:27 07/26/2019 11:20:28 Pile easily reducible 467568358 K64.1 Stage 2 - 3 internal hemorrhoid s: She is doing well with infrared coagulatio n. Her 3rd treatment was done today on the RA. She has remained on the baby aspirin given her questionab le history of TIA/CVA. If she does develop persistent heavy bleeding, she needs to go off of the aspirin. So far she has done fine and had no bleeding. External hemorrhoids 239 75443 K64.4 These have improved with IRC. She understand s the only way to directly treat external hemorrhoid s/skin tags would be with a surgical excision. She does not wish to pursue this right now. She may eventually want to see a colon and rectal surgeon for the largest fleshy tag at the posterior anal opening. History of polyp of colon 678068606 Z86.010 I still would like to have a copy of the pathology report from her colonoscop y from 2008. Given her bleeding we might go ahead and get a repeat scope (although the bleeding is hemorrhoid al). We will talk about this further when she follows up. She does want to have another scope soon. Papillary thyroid carcinoma 625838395 C73 She is following with her radiation oncologist (Gasper Butler MD) and endocrinol ogist (Saadia Hamlin MD). Both are with [facility]. [id number] Rochelle Felix MD Main Office [address] [facility] [address] [place] [address] 09/01/2019 14:21:07 09/01/2019 15:39:52 Pile easily reducible 708857781 K64.1 Stage 2 - 3 internal hemorrhoid s: Her 4th treatment was done today on the RP and LL. She has remained on the baby aspirin given her questionab le history of TIA/CVA. If she does develop persistent heavy bleeding, she needs to go off of the aspirin. I discussed with her that I want to do this treatment and see how she does with the bleeding. If it does not stop, she might need to see a colon and rectal surgeon. I faxed in a prescripti on for hydrocorti sone suppositor ies (I failed to do this immediatel y after her appointmen t). I advised that if they are expensive on her insurance she needs to let me know and we will do compounded hydrocorti sone/lidoc lee ann suppositor ies. History of polyp of colon 758207381 Z86.010 I discussed with her that the polyp she had on her scope in 01/2010 was hyperplast ic and small, which is not an indication for enhanced screening. She could get a colonoscop y but it would be considered diagnostic . We decided to wait and see if her bleeding stops. Health Concerns Section Related Observation LastModified by Organization Detai ls LastModified Time None Recorded Concern Status LastModified by Organization Details LastModified Time None Recorded Advance Directives Directive None Recorded Payers Insurance Date Sequence Insurance Name Policy Number Policy Juarez Covered Member ID Juarez Member ID Guarantor Name 09/01/2019 PAYMENT PLAN Niurka Johnson Yuan 10/24/2019 1 [employer] [id number] Minh Wynno [id number] Niurka Bolden Notes Date Note Type Note Provider Name and Address Organization Details Recorded Time 06/27/2019 text/html ROS as noted in the HPI This is a very pleasant 39 year old woman who has had symptoms from her hemorrhoids on and off since her first vaginal delivery in 12/2002. Her symptoms worsened after her second vaginal delivery in 05/2006 and they have been persistent since then, she has just always been too embarrassed to seek treatment. Her bleeding greatly worsened in February after her thyroidectomy and radiation for papillary thyroid cancer. She presents today for an evaluation and to discuss her treatment options. Bleeding: This is her main symptom. She has episodes of very heavy bleeding with BM's about 2 times monthly. Her episodes last 2 - 3 days and then resolve. The bleeding is bright red and discolors the water. The bleeding stops quickly and she has never had leakage of blood in between BM's. The bleeding is completely painless. Pain: None Itching: Not really Discharge: She has minor difficulty getting clean after BM's because of swelling. She has no difficulty staying clean - she does not have to re-wipe. Prolapse: Not that she feels or has to manually reduce. External swelling: She occasionally has some slight external swelling. This does not cause her any symptoms. Discomfort: She has minimal and infrequent external irritation. She does have internal symptoms of pressure, a sense of being blocked when trying to have a BM and a sense of incomplete emptying after BM's. Previous Hemorrhoid Treatment: She was given a prescription for Analpram on 06/10/20. It has not helped her bleeding. She has never had any procedures on her hemorrhoids. Previous Lower GI Endoscopy: She had a colonoscopy in 2008 (Darrion Horowitz MD) due to the bleeding. She knows she was told she had small polyps but does not know if she was told she needed another scope prior to screening age because of the polyps). She states she saw Dr. Horowitz again about 4 years ago due to the bleeding but he evidently did not feel she needed another colonoscopy at that time and no treatment was done. Bowel Habits: She has had long standing issues with lactose intolerance. She knows if she consumes too much dairy products it gives her diarrhea, but she likes dairy so she is unable to give it up (her bleeding is much worse when she has diarrhea). As long as she stays away from dairy, her BM's are daily and soft (Avella Scale type 4). She tries to eat a high fiber diet and drink plenty of water. She was diagnosed with a papillary thyroid carcinoma on 03/01/19. She had evidently had a thyroid nodule that was being periodically monitored since 2008. The nodule enlarged sometime last year. She had a FNA biopsy that was evidently inconclusive. Fortunately her encouraged her to seek a second opinion and a repeat FNA biopsy was positive on 03/01/19. She has had a total thyroidectomy and radiation. She is following up with her radiation oncologist and supervisor mill. She is taking levothyroxine but states that her dose has not stabilized. This of course has been very stressful. She has had regular menstrual cycles however she has had heavier bleeding with her cycles. 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 She had what she calls a TIA in about 2011. She states that the entire right side of her face went numb and had a pins and needles type of sensation. She states it took about 6 months for the symptoms to go away (which means she did not have a TIA). She also had difficulty completely opening one eye. She has no residual neurological symptoms but does continue taking a baby aspirin daily. She has fatty liver and is taking Crestor for this. She is changing PCP's as she was not happy with how her previous PCP's office handled telling her about her thyroid cancer (basically the pathology report was handed to her by the receptionist airline lounge and she was unable to speak to her PCP for over a week). She has an appointment with Conchita Montano MD sometime in August). Rochelle Felix MD [address] [place] [address],[address] [facility], [place], [address], [facility] 06/27/2019 21:49:15 07/04/2019 text/html She had no problem with the first treatment and she has had no bleeding (I warned her that bleeding is the #1 side effect from treatment). She has remained on her baby aspirin daily and knows to not take Excedrin. She has less swelling and discomfort. It is easier to get clean after BM's. Her BM's have been good - mostly daily and soft. Rochelle Felix MD [address] [place] [address],[address], [place], [address], [facility] 07/10/2019 19:48:34 07/26/2019 text/html She had no problem with her last treatment and she is doing very well. She has had no bleeding. She has had no swelling (except for the fleshy skin tags) or discomfort. It is easy to get and stay clean. She is getting ready to see her new supervisor mill (Berto Hamlin MD with [facility]) for her thyroid carcinoma. She no longer needs to follow with her surgeon (Kisha Tello MD). She is still seeing her radiation oncologist (Gasper Butler MD). She states that things are going well with her treatment. Her BM's have been doing well with just watching her diet. Rochelle Felix MD [address] [place] [address],[address] [facility], [place], [address], [facility] 07/26/2019 14:00:11 09/01/2019 text/html She had no problem with the last treatment but she has had more bleeding than she had been having. Her bleeding is bright red and is less amount that prior to treatment, but is occurring more often. She has blood with about every other BM. She has had some GI discomfort/upset. She states she has been under a lot of stress with selling her house and looking for a new one. She has been taking 2 gummy fiber daily and for the most part her BM's are soft. Rochelle Felix MD [address] [facility],[address], [place], [address], [facility] 09/12/2019 12:45:56 OBGyn Episode No OBEpisode recorded.
--- OUTSIDE RECORDS SUMMARY | 2025-03-17 18:59 | XMS_ITS | Encounter Summary ---
Author Organization [facility] Address [address] [place] [address] Care Team Providers Care Deployment Engineer Name Role Phone Margaret Oquendo NP Primary Care Provider +1 -[phone] Encounter Details Date Type Department Care Team (Late st Contact Info) Description 01/25/2024 Altitude Digital Message Enc [facility] Medical Group Family Medicine - [place] [address] [place] [address] Erica Erickson MD [address] [place], [place] [id number] Jeimy Yaun 01/16/03 back pain Social History Tobacco Use Types Packs/Day Years Used Date Smoking Tobacco: Never Passive Smoke Exposure: Past Smokeless Tobacco: Never Comments:The provider can pr ovide you with more information about quitting. Alcohol Use Standard Drinks/Week Comments Never 0 (1 standard drink = 0.6 oz pur e alcohol) AUDIT-C Answer Date Recorded Q1: How often do you have a drink containing alc ohol? Never 04/06/2020 Average Number of Drinks Not on file 020 Frequency of Binge Drinking Not on file 03/22 PHQ-2 Answer Date Recorded Patient Health Questionnaire-2 Score 0 11/18/2023 Comments No Sex and Gender Information Value Date Recorded Sex Assigned at Not on file Legal Sex Female 10:14 AM CDT Gender Identity Not on file Sexual Orientation Not on file documented as of this encounter Plan of Treatment Not on file documented as of this encounter Visit Diagnoses Not on filedocumented in this encounter Care Teams Deployment Engineer Relationship Specialty Start Date End Date Margaret Oquendo NP [address] [place] [address] [place] [address] PCP - General NURSE PRACTITIONER 03/19/21 documented as of this encounter
--- OUTSIDE RECORDS SUMMARY | 2025-03-17 18:59 | XMS_ITS | Encounter Summary ---
Author Organization [facility] Address [address] [place] [address] Care Team Providers Care Lease Attendant Name Role Phone Margaret Oquendo NP Primary Care Provider +1 [phone] Encounter Details Date Type Department Care Team (Late st Contact Info) Description 10/07/2024 Amaru Message Enc [facility] Medical Group Family Medicine - [place] [address] [facility] [address] [place], [place] [address], [place] [phone] Margaret Oquendo, TREASURE [address] [place] [address] [place] [address] Mid information in record Social History Tobacco Use Types Packs/Day Years [...] Answer Date Recorded Patient Health Questionnaire-2 Score 2 05/10/2024 Comments No Sex and Gender Information Value Date Recorded Sex Assigned at Not on file Legal Sex Female 10:14 AM CDT Gender Identity Not on file Sexual Orientation Not on file documented as of this encounter Plan of Treatment Not on file documented as of this encounter Visit Diagnoses Not on filedocumented in this encounter Additional Health Concerns Assessment Noted Time PHQ-9 Depression Total Score: 8 11/19/20 24 1:39 PM LUMBER SORTER documented as of this encounter Care Teams Lease Attendant Relationship Specialty Start Date End Date Margaret Oquendo NP [address] [place] [address] PCP - General NURSE PRACTITIONER 03/19/21 documented as of this encounter
--- OUTSIDE RECORDS SUMMARY | 2025-03-17 18:59 | XMS_ITS | Encounter Summary ---
Author Organization [facility] Address [address] [place] [address] Care Team Providers Care Microbiological Laboratory Technician Name Role Phone Margaret Oquendo NP Primary Care Provider +1 -[phone] Encounter Details Date Type Department Care Team (Late st Contact Info) Description 01/02/2023 Dwellable Message Enc [facility] Medical Group Family Medicine - [place] [address] [facility] [address] [place], [place] [address], [place] [phone] Margaret Oquendo, TREASURE [address] [place] [address] [place], [place] [address] 138/94 bp Social History Tobacco Use Types Packs/Day Years [...] Date Recorded Patient Health Questionnaire-2 Score 0 11/04/2022 Comments No Sex and Gender Information Value Date Recorded Sex Assigned at Not on file Legal Sex Female 10:14 AM CDT Gender Identity Not on file Sexual Orientation Not on file documented as of this encounter Plan of Treatment Not on file documented as of this encounter Visit Diagnoses Not on filedocumented in this encounter Care Teams Microbiological Laboratory Technician Relationship Specialty Start Date End Date Margaret Oquendo NP [address] [place] [address] [place] [address] PCP - General NURSE PRACTITIONER 03/19/21 documented as of this encounter
--- OUTSIDE RECORDS SUMMARY | 2025-03-17 18:59 | XMS_ITS | Encounter Summary ---
Author Organization [facility] Address [address] [place] [address] Care Team Providers Care Flagger Name Role Phone Margaret Oquendo NP Primary Care Provider +1 -[phone] Encounter Details Date Type Department Care Team (Late st Contact Info) Description 11/18/2024 Flavorvanil Message Enc [facility] Medical Group Family Medicine - [place] [address] [facility] [address] [place], [place] [address], [place] [phone] Margaret Oquendo, TREASURE [address] [place] [address] Minoxidil Social History Tobacco Use Types Packs/Day Years [...] on file documented as of this encounter Progress Notes * Sherry Nino MA - 11/18/2024 12:45 PM CDT Niurka sent this in referring to her two children and this has been addressed. documented in this encounter Plan of Treatment Not on file documented as of this encounter Visit Diagnoses Not on filedocumented in this encounter Additional Health Concerns Assessment Noted Time PHQ-9 Depression Total Score: 8 05/10/20 24 1:39 PM BUDGET OFFICER documented as of this encounter Care Teams Flagger Relationship Specialty Start Date End Date Margaret Oquendo NP [address] [place] [address] PCP - General NURSE PRACTITIONER 03/19/21 documented as of this encounter
--- OUTSIDE RECORDS SUMMARY | 2025-03-17 18:59 | XMS_ITS | Encounter Summary ---
Author Organization [facility] Address [address] [place] [address] Care Team Providers Care Bell Cleaner Name Role Phone Margaret Oquendo NP Primary Care Provider +1 -[phone] Encounter Details Date Type Department Care Team (Late st Contact Info) Description 11/19/2023 Rollerscoot Message Enc [facility] Medical Group Family Medicine - [place] [address] [facility] [address] [place], [place] [address], [place] [phone] Margaret Oquendo, TREASURE [address] [place] [address] Vyepti Social History Tobacco Use Types Packs/Day Years [...] on filedocumented in this encounter Care Teams Bell Cleaner Relationship Specialty Start Date End Date Margaret Oquendo NP [address] [place] [address] [place] [address] PCP - General NURSE PRACTITIONER 03/19/21 documented as of this encounter
--- OUTSIDE RECORDS SUMMARY | 2025-03-17 18:59 | XMS_ITS | Encounter Summary ---
Author Organization [facility] Address [address] [place] [address] Care Team Providers Care Network Mgr Name Role Phone Margaret Oquendo NP Primary Care Provider +1 -[phone] Encounter Details Date Type Department Care Team (Late st Contact Info) Description 03/04/2024 [employer] Message Enc [facility] Medical Group Family Medicine - [place] [address] [facility] [address] [place], [place] [address], [place] [phone] Margaret Oquendo, TREASURE [address] [place] [address] [place], [place] [address] Jeromy Social History Tobacco Use Types Packs/Day Years [...] as of this encounter Progress Notes * Erica Erickson MD - 03/07/2024 7:47 AM CDT Will comment directly in patient's chart. documented in this encounter Plan of Treatment Not on file documented as of this encounter Visit Diagnoses Not on filedocumented in this encounter Care Teams Network Mgr Relationship Specialty Start Date End Date Margaret Oquendo NP [address] [place] [address] [place] [address] PCP - General NURSE PRACTITIONER 03/19/21 documented as of this encounter
--- OUTSIDE RECORDS SUMMARY | 2025-03-17 18:59 | XMS_ITS | Encounter Summary ---
Author Organization [facility] Address [address] [place] [address] Care Team Providers Care Licensed Clinician Name Role Phone Margaret Oquendo NP Primary Care Provider +1 -[phone] Encounter Details Date Type Department Care Team (Late st Contact Info) Description 03/28/2024 [employer] Message Enc [facility] Medical Group Family Medicine - [place] [address] [facility] [address] [place], [place] [address], [place] [phone] Margaret Oquendo, TREASURE [address] [place] [address] Levoalbuterol Social History Tobacco Use Types Packs/Day Years [...] on filedocumented in this encounter Care Teams Licensed Clinician Relationship Specialty Start Date End Date Margaret Oquendo NP [address] [address] [place] [address] PCP - General NURSE PRACTITIONER 03/19/21 documented as of this encounter
--- OUTSIDE RECORDS SUMMARY | 2025-03-17 18:59 | XMS_ITS | Encounter Summary ---
Author Organization [facility] Address [address] [place] [address] Care Team Providers Care Director Credit Risk Name Role Phone Margaret Oquendo NP Primary Care Provider +1 -[phone] Encounter Details Date Type Department Care Team (Late st Contact Info) Description 09/15/2022 StorPool Message Enc [facility] Medical Group Family Medicine - [place] [address] [facility] [address] [place], [place] [address], [place] [phone] Margaret Oquendo, TREASURE [address] [place] [address] [place] [address] Qulipta Social History Tobacco Use Types Packs/Day Years [...] on file 03/22 PHQ-2 Answer Date Recorded PHQ-2 Score - If the patient scores above 3, please move on to questions 3-9 0 12/04/2021 Comments No Sex and Gender Information Value Date Recorded Sex Assigned at Not on file Legal Sex Female 10:14 AM CDT Gender Identity Not on file Sexual Orientation Not on file documented as of this encounter Plan of Treatment Not on file documented as of this encounter Visit Diagnoses Not on filedocumented in this encounter Care Teams Director Credit Risk Relationship Specialty Start Date End Date Margaret Oquendo NP [address] [place] [address] [place] [address] PCP - General NURSE PRACTITIONER 03/19/21 documented as of this encounter
--- OUTSIDE RECORDS SUMMARY | 2025-03-17 18:59 | XMS_ITS | Encounter Summary ---
Author Organization [facility] Address [address] [place] [address] Care Team Providers Care Funeral Car Chauffeur Name Role Phone Margaret Oquendo NP Primary Care Provider +1 -[phone] Encounter Details Date Type Department Care Team (Late st Contact Info) Description 11/18/2024 [employer] Message Enc [facility] Medical Group Family Medicine - [place] [address] [facility] [address] [place], [place] [address], [place] [phone] Margaret Oquendo, TREASURE [address] [place] [address] [place] [address] Qulipta Social History Tobacco Use Types Packs/Day [...] as of this encounter Progress Notes * Sydney Jasso LPN - 11/18/2024 3:47 PM CDT I sent this to the pharmacy and made patient aware. documented in this encounter Plan of Treatment Not on file documented as of this encounter Visit Diagnoses Diagnosis Migraine with aura and without status migrainosus, not intractable Migraine with aura, without mention of intractable migraine without mention of status migrainosus documented in this encounter Additional Health Concerns Assessment Noted Time PHQ-9 Depression Total Score: 8 05/10/20 24 1:39 PM SODA ROOM OPERATOR documented as of this encounter Care Teams Funeral Car Chauffeur Relationship Specialty Start Date End Date Margaret Oquendo NP [address] [place] [address] [place] [address] PCP - General NURSE PRACTITIONER 03/19/21 documented as of this encounter
--- OUTSIDE RECORDS SUMMARY | 2025-03-17 18:59 | XMS_ITS | Encounter Summary ---
Author Organization [facility] Address [address] [place] [address] Care Team Providers Care Chief Creative Officer Name Role Phone Margaret Oquendo NP Primary Care Provider +1 -[phone] Encounter Details Date Type Department Care Team (Late st Contact Info) Description 11/18/2022 Craft Dragon Message Enc [facility] Medical Group Family Medicine - [place] [address] [facility] [address] [place], [place] [address], [place] [phone] Margaret Oquendo, TREASURE [address] [place] [address] [place], [place] [address] Jeromy Yuan Social History Tobacco Use Types Packs/Day Years [...] on file Sexual Orientation Not on file COVID-19 Exposure Response Date Recorded In the last 10 days, have yo u been in contact with someone who was confirmed or suspected to have Coronavirus/COVID-19? No / Unsure 11/04/2022 2:43 PM CDT documented as of this encounter Plan of Treatment Not on file documented as of this encounter Visit Diagnoses Not on filedocumented in this encounter Care Teams Chief Creative Officer Relationship Specialty Start Date End Date Margaret Oquendo NP [address] [place] [address] [place] [address] PCP - General NURSE PRACTITIONER 03/19/21 documented as of this encounter
--- OUTSIDE RECORDS SUMMARY | 2025-03-17 18:59 | XMS_ITS | Encounter Summary ---
Author Organization [facility] Address [address] [place] [address] Care Team Providers Care Kaiwhakahaere Name Role Phone Margaret Oquendo NP Primary Care Provider +1 -[phone] Encounter Details Date Type Department Care Team (Latest Contact Info) Description 04/15/2024 NetEffect Message Enc [facility] Medical Group Family Medicine - [place] [address] [facility] [address] [place], [place] [address], [place] [phone] Margaret Oquendo, TREASURE [address] [place], [place] [address] Pneumococcal vaccine Social History Tobacco Use Types Packs/Day Years [...] on filedocumented in this encounter Care Teams Kaiwhakahaere Relationship Specialty Start Date End Date Margaret Oquendo NP [address] [place] [address] [place] [address] PCP - General NURSE PRACTITIONER 03/19/21 documented as of this encounter
--- OUTSIDE RECORDS SUMMARY | 2025-03-17 18:59 | XMS_ITS | Encounter Summary ---
Author Organization [facility] Address [address] [place] [address] Care Team Providers Care Dry Cell Assembly Machine Tender Name Role Phone Margaret Oquendo NP Primary Care Provider +1 -[phone] Encounter Details Date Type Department Care Team (Late st Contact Info) Description 09/05/2022 SecurActivet Message Enc [facility] Medical Group Family Medicine - [place] [address] [facility] [address] [place], [place] [address], [place] [phone] Margaret Oquendo, TREASURE [address] [place] [address] [place] [address] Cortisol Social History Tobacco Use Types Packs/Day Years [...] suspected to have Coronavirus/COVID-19? No / Unsure 08/06/2022 10:42 AM GLUE CLAMP OPERATOR documented as of this encounter Progress Notes * Maritza Han MA - 09/08/2022 2:18 PM CDT printed * Maritza Han MA - 09/08/2022 9:05 AM CDT Printed lab results will place in your office inbox for review documented in this encounter Plan of Treatment Not on file documented as of this encounter Visit Diagnoses Not on filedocumented in this encounter Care Teams Dry Cell Assembly Machine Tender Relationship Specialty Start Date End Date Margaret Oquendo NP [address] [place] [address] [place] [address] PCP - General NURSE PRACTITIONER 03/19/21 documented as of this encounter
--- OUTSIDE RECORDS SUMMARY | 2025-03-17 18:59 | XMS_ITS | Encounter Summary ---
Author Organization [facility] Address [address] [place] [address] Care Team Providers Care Rn Radiology Name Role Phone Margaret Oquendo NP Primary Care Provider +1 -[phone] Encounter Details Date Type Department Care Team (Late st Contact Info) Description 08/06/2022 RealSelf Message Enc [facility] Medical Group Family Medicine - [place] [address] [facility] [address] [place], [place] [address], [place] [phone] Margaret Oquendo, TREASURE [address] [place] [address] [place] [address] Question regarding XR THOR SPINE 3V Social History Tobacco Use Types Packs/Day Years [...] Coronavirus/COVID-19? No / Unsure 08/06/2022 10:42 AM PEAR PICKER documented as of this encounter Plan of Treatment Not on file documented as of this encounter Visit Diagnoses Not on filedocumented in this encounter Care Teams Rn Radiology Relationship Specialty Start Date End Date Margaret Oquendo NP [address] [place] [address] [place] [address] PCP - General NURSE PRACTITIONER 03/19/21 documented as of this encounter
--- OUTSIDE RECORDS SUMMARY | 2025-03-17 18:59 | XMS_ITS | Clinical Summary ---
Author Organization [facility] Address [facility] [place] [address] Care Team Providers Care Hall Worker Name Role Phone Margaret Oquendo NP Primary Care Provider [phone] Allergies Active Allergy Reactions Criticality Noted Date Comments Cynara Scolymus (Artichoke) Throat swelling,Swelling Medium 02/05/2023 Erythromycin Hallucinations 04/06/2020 Meperidine Itching Low 06/25/2015 Oxymetazoline Palpitations Low 06/25/2015 Butorphanol Itching Medium 04/06/2020 hallutionations Medications aspirin EC 81 MG tablet Take 1 tablet (81 mg total) by mouth daily. Active multi vitamin/minerals (THERA-M ENHANCED) tablet Take 1 tablet by mouth daily. Active FEROSUL 325 (65 Fe) MG tabletIndication s:Iron deficiency anemia, unspecified iron deficiency anemia type TAKE 1 TABLET(325 MG) BY MOUTH DAILY 90 tablet 1 2 Active Additional Information Patient not taking.Reason: patient choice, Reported on 11/21/2024 famotidine (PEPCID) 40 MG tabletIndication s:Gastroesophage al reflux disease, unspecified whether esophagitis present Take 0.5 tablets (20 mg total) by mouth daily as needed. 90 tablet 1 3 Active spironolactone (ALDACTONE) 50 MG tabletIndication s:Hair loss Take 1 tablet (50 mg total) by mouth every morning. 90 tablet 1 4 Active omeprazole (PRILOSEC) 40 MG capsuleIndicatio ns:Gastroesophag eal reflux disease without esophagitis Take 1 capsule (40 mg total) by mouth daily. 90 capsule 4 Active SYNTHROID 88 MCG tabletIndication s:Hypothyroidism , unspecified type Take 1 tablet (88 mcg total) by mouth 3 (three) times a week. Take 1 tablet orally on Thursday, Thursday 4 Active rizatriptan (MAXALT) 5 MG tabletIndication s:Migraine with aura and without status migrainosus, not intractable TAKE 1 TABLET BY MOUTH NEEDED FOR MIGRAINE, MAY REPEAT IN 2 HOURS IF NEEDED 8 tablet 1 4 Active rosuvastatin (CRESTOR) 10 MG tabletIndication s:Hyperlipidemia TAKE 1 TABLET(10 MG) BY MOUTH DAILY 90 tablet 3 5 Active metFORMIN ER (GLUCOPHAGE-XR) 500 MG 24 hr tabletIndication s:Overweight (BMI 25.0-29.9),Fatty liver,Insulin resistance TAKE 1 TABLET(500 MG) BY MOUTH TWICE DAILY 90 tablet 3 5 Active SYNTHROID 75 MCG tabletIndication s:Hypothyroidism , unspecified type Take 1 tablet (75 mcg total) by mouth every morning. 7 tablet 5 Active atogepant (QULIPTA) tabletIndication s:Migraine with aura and without status migrainosus, not intractable Take 1 tablet (60 mg total) by mouth daily. 90 tablet 1 5 Active buPROPion XL (WELLBUTRIN XL) 300 MG 24 hr tabletIndication s:Generalized anxiety disorder,Overwei ght (BMI 25.0-29.9) Take 1 tablet (300 mg total) by mouth daily. 90 tablet 5 Active Active Problems Problem Noted Date Diagnosed Date Generalized anxiety disorder 06/07/2024 Overview (06/07/2024): Doing well with Wellbutrin 150mg daily. She has noticed improvement with use without side effects. Mood is good. Denies SI/HI. She would be intersted to increase dose and she feels it does suppress appetite some. Pt is down 3 pounds since her last ofifce visit. She is starting to ride her bike again and focusing on healthy eating. Assessment & Plan (06/07/2024 9:53 AM KINESEOLOGIST): Doing well but would like to make med adjustment. Will increase Wellbutrin to 300mg daily. Discussed side effects pt may notice at higher dose and if she feels that she wants to go back down to 150mg to let me know. Pt will update me in a month how she is doing at the 300mg dosage. Hypothyroidism, unspecified type 06/07/2024 Overview (06/07/2024): Hx of thyroid cancer requiring thyroidectomy. Recent TSH shows thyroid is a little hyperactive at this time. Will discuss a slight med adjustment. Pt was instructed by jony to take 88mg of levothyroxine on Thu, Thu, Thursday and 75mg on Thursday, , Thursday and Thursday. Assessment & Plan (06/07/2024 10:00 AM KINESEOLOGIST): Chronic condition that is not controlled requiring med adjustment. At this time recommend switching pt's Thursday dose from 88mcg to 75mcg and pt to have TSH rechecked in 8-10 weeks. Pt aware of signs/symptoms of hyperthyroidism. Calculus of gallbladder with out cholecystitis without obstruction 06/07/2024 Overview (06/07/2024): Has had intermittent RUQ discomfort so she is going to see a GI surgeon next week to discuss if they want to remove her gallbladder or not. Assessment & Plan (06/07/2024 10:03 AM KINESEOLOGIST): Pt will be seeing a surgeon discuss gallbladder removal or not. History of thyroid cancer 04/30/2023 Insulin resistance 04/30/2023 Overview (06/07/2024): Hx of this. Taking Metformin ER 500mg BID and controlled with use and diet. Assessment & Plan (06/07/2024 10:20 AM KINESEOLOGIST): Chronic condition, controlled. No changes needed at this time to medication. Encourage diet and lifestyle changes to assist with weight loss. Total insulin and A1C are stable at this time. Fatty liver 04/30/2023 Overview (06/07/2024): Hx of this on statin therapy and lipid panel is in stable range with use. Hx of elevated liver enzymes but in a normal range at this time. Assessment & Plan (06/07/2024 10:07 AM KINESEOLOGIST): Resume statin and following a healthy well balance diet. Kidney stones 02/05/2023 Overview (02/05/2023): Added automatically from request for surgery [id number] Overweight (BMI 25.0-29.9) 05/20/2022 Overview (06/07/2024): Is down three pounds. Is eating well and is biking again. Postoperative hypothyroidism 04/01/2022 Obstructive sleep apnea syndrome 02/17/2022 Migraine with aura and witho ut status migrainosus, not intractable 12/04/2021 Overview (06/07/2024): Chronic condition and stable with current medications. Assessment & Plan (06/07/2024 10:09 AM KINESEOLOGIST): Chronic condition, controlled. No changes needed at this time. Iron deficiency anemia, unsp ecified iron deficiency anemia type 04/06/2020 Gastroesophageal reflux disease without esophagi tis 04/06/2020 Overview (06/07/2024): Chronic condition. Takes omeprazole 40mg daily. Follows with GI. Assessment & Plan (06/07/2024 10:08 AM KINESEOLOGIST): Chronic condition, controlled. No changes needed at this time. Avoid foods to trigger GERD. History of urinary stone 06/27/2019 History of transient ischemic attack 06/27/2019 History of colonic polyps 06/27/2019 Papillary carcinoma of thyroid ([facility]/HCC HHS/HCC) 06/26/2019 Nonalcoholic steatohepatitis (ELIAS) 06/25/2015 Resolved Problems Problem Noted Date Diagnosed Date Resolved Date Weight gain 04/06/2020 05/20/2022 Thyroid cancer (CMS/HCC HHS/HCC) 04/06/2020 04/30/2023 Elevated liver enzymes 04/06/202006/07 Strain of trapezius muscle, unspecified laterality, initial encounter 04/06/2020 06/07/2024 Encounters Date Type Department Care Team Description 02/07/2025 Scan [facility] Scanned, Doc Med Group 01/29/2025 Results Follow-Up [place] [address] [place] [address] Margaret Oquendo NP RHEUMATOID FACTOR, QUANT, CYCLIC CITRULLINATED PEPTIDE (CCP)ANTIBODY(IGG) 01/25/2025 MyChart Message Enc [facility] [address] [place] [address] Margaret Oquendo NP Pain 12/29/2024 Scan [facility] HEALTH INFO SRVCS Scanned, Doc Med Group 12/20/2024 Orders Only [place] [id number] [place] [address] Sherry Nino MA from Last 3 Months Immunizations Immunization Administration Dates Next Due PFIZER COVID-19 (ORIGINAL FO RMULATION, PURPLE CAP) mRNA, LNP-S, PF, 30 MCG/0.3 ML DOSE 04/25/2021,09/30/2020,09/04/2020 Family History Medical History Relation Comments Arthritis Father Diabetes Father Relation Status Comments Father Alive Mother Alive Social History Tobacco Use Types Packs/Day Years Used Date Smoking Tobacco: Never Passive Smoke Exposure: Past Smokeless Tobacco: Never Tobacco Cessation:Counseling Given: Not Answered Comments:The provider can provide you with more information about quitting. Alcohol [...] on file Sexual Orientation Not on file Last Filed Vital Signs Vital Sign Reading Time Taken Comments Blood Pressure 130/80 11/21/2024 3:44 PM CDT Pulse 82 11/21/2024 3:24 PM CDT Temperature 36.7 C (98 F) 11/21/2024 3:24 PM CDT Respiratory Rate 16 11/21/2024 3:24 PM CDT Oxygen Saturation 98% 11/21/2024 3:24 PM CDT Inhaled Oxygen Concentration - - Weight 64 kg (141 lb) 11/21/2024 3:24 PM CDT Height 154.9 cm (5' 1) 11/21/2024 3:24 PM CDT Body Mass Index 26.64 11/21/2024 3:24 PM CDT Plan of Treatment Health Maintenance Due Date Last Done Comments DTaP, Tdap and Td Vaccines (1 - Tdap) 1998 Hepatitis B Vaccines (1 of 3 - 19+ 3-dose series) 1998 Cervical Cancer Screening Pap with HPV Testing (Age 30 to 64) Every 5 Years 2009 PHQ-2 (Physician Dudley) 06/22/2024 05/10/2024 Cervical Cancer Screening Pap Smear (Age 30 to 64) Every 3 Years 09/19/2024 09/19/2021, 09/19/2021 Cervical Cancer Screening with HPV 09/19/2024 COVID-19 Vaccine ( season) 2025 04/25/2021, 09/30/2020, 09/04/2020 Annual Physical 06/06/2025 06/06/2024, 04/30/2023 Mammogram Screening 02/04/2026 02/05/2024, 02/16/2023, 02/02/2023, Additional history exists Colorectal Cancer Screening Colonoscopy (10 Years) 11/07/2030 11/07/2020 Hepatitis C Completed 05/27/2022, 05/03/2020 HPV Vaccines Aged Out No longer eligi ble based on patient's age to complete this topic Meningococcal B Vaccine Aged Out No l onger eligible based on patient's age to complete this topic Meningococcal Vaccine Aged Out No loren yue eligible based on patient's age to complete this topic Pneumococcal Vaccine: Pediatrics (0 to 5 Years) and At-Risk Patients (6 to 49 Years) Aged Out No longer eligible based on patient's age to complete this topic RSV Immunizations Under 20 Months Aged Out No longer eligible based on patient's age to complete this topic Procedures Procedure Name Priority Date/Time Associated Diagnosis Comments CYCLIC CITRULLINATED PEPTIDE (CCP)ANTIBODY(IGG) Routine 01/27/2025 11:58 AM CDT Myalgia RHEUMATOID FACTOR, QUANT Routine 01/27/2025 11:58 AM CDT Myalgia CASA IFA SCREEN WI RFX TO TITER/CASCADE Routine 01/27/2025 11:57 AM CDT Myalgia C-REACTIVE PROTEIN Routine 01/27/2025 11 :57 AM CDT Myalgia SED RATE, ERYTHROCYTE (ESR) Routine 01/27/2025 11:57 AM CDT Myalgia MAMMOGRAM GENERIC (SCAN ORDER) 02/05/2024 HEPATITIS PANEL,ACUTE Routine 05/27/2022 11:14 AM KINESEOLOGIST Elevated liver enzymes OUTSIDE CYTOPATH CERV/VAG INTERPRET (PAP) (SCAN ORDER) 09/19/2021 COLONOSCOPY GENERIC (SCAN ORDER) 11/07/2020 from Last 3 Months or Most Recently Relevant to Health Maintenance Results * RHEUMATOID FACTOR, QUANT (01/27/2025 11:58 AM CDT) RHEUMATOID FACTOR <10.0 <14.0 IU/mL [facility] 1 01/27/2025 11:5 8 AM CDT 01/27/2025 Narrative [facility] - 01/28/2025 1:07 PM CDT Performed at: [facility] [id number] Manager Wind: Gasper Pan PhD, Phone: [phone] us Margaret Oquendo NP LABORATORY Final Res ult [facility] [address] [place] [address] [facility] * CYCLIC CITRULLINATED PEPTIDE (CCP)ANTIBODY(IGG) (01/27/2025 11:58 AM CDT) CYCLIC CITRULLINATED PEPTIDE 2 0 - 19 units [facility] 1 Comment: Negative <20 Weak positive 20 - 39 Moderate positive 40 - 59 Strong positive >59 01/27/2025 11:5 8 AM CDT 01/27/2025 Narrative [facility] - 01/28/2025 1:07 PM CDT Performed at: [address] [id number] Manager Wind: Gasper Pan PhD, Phone: [phone] Margaretkaleigh Oquendo CLINIC PHYSICIAN LABORATORY Final Res ult Performing Organization Address [facility] [place] [address] [facility] 1 * CASA IFA SCREEN WI RFX TO TITER/CASCADE ([facility] ONLY) (01/27/2025 11:57 AM CDT) Pathologist [facility] CASA Negative [facility] 1 Comment: Negative <1:80 Borderline 1:80 Positive >1:80 ICAP nomenclature: AC-0 For more information about Hep-2 cell patterns use ANApatterns.org, the official website for the International Consensus on Antinuclear Antibody (CASA) Patterns (ICAP). 01/27/2025 11:5 7 AM CDT 01/27/2025 Narrative [facility] - 01/31/2025 12:07 PM CDT Performed at: [address] [id number] Manager Wind: Gasper Pan PhD, Phone: [phone] us Margaretkaleigh Oquendo CLINIC PHYSICIAN LABORATORY Final Res ult Performing Organization Address [facility] de Phone Number [facility] [address] [place] [address] [facility] 1 * SED RATE, ERYTHROCYTE (ESR) (01/27/2025 11:57 AM CDT) [facility] SED RATE 2 0 - 32 mm/hr [facility] 1 01/27/2025 11:5 7 AM CDT 01/27/2025 Narrative [facility] - 01/31/2025 12:07 PM CDT Performed at: [address] [place] [id number] Manager Wind: Gasper Pan PhD, Phone: [phone] Margaret Oquendo CLINIC PHYSICIAN LABORATORY Final Res ult Performing Organization Address [facility] [place] [address] [facility] * C-REACTIVE PROTEIN (01/27/2025 11:57 AM CDT) [facility] C-REACTIVE PROTEIN <1 0 - 10 mg/L [facility] 1 01/27/2025 11:5 7 AM CDT 01/27/2025 Narrative [facility] - 01/31/2025 12:07 PM CDT Performed at: [address] [place] [id number] Manager Wind: Gasper Pan PhD, Phone: [phone] Margaret Oquendo NP LABORATORY Final Res ult Performing Organization Address [facility] [place] [address] [facility] * MAMMOGRAM GENERIC (SCAN ORDER) (02/05/2024) Anatomical Region Laterality Modality Other 02/05/2024 us Doc [facility] Scanned SCANNING Final Resu lt * HEPATITIS PANEL,ACUTE (05/27/2022 11:14 AM KINESEOLOGIST) [facility] HEPATITIS A IGM Negative Negative [facility] 1 HEPATITIS B SURFACE AG Negative Negative [facility] 1 HEP B CORE AB COMMENT Negative Negative [facility] 1 HEPATITIS C AB 0.1 0.0 - 0.9 s/co ratio [facility] 1 INTERPRETATION Comment [facility] 1 Comment: Negative Not infected with HCV, unless recent infection is suspected or other evidence exists to indicate HCV infection. 05/27/2022 11:1 4 AM KINESEOLOGIST 05/27/2022 Narrative [facility] - 05/28/2022 8:08 AM KINESEOLOGIST Performed at: 01 - [facility] [address] [id number] Manager Wind: Gasper Pan PhD, Phone: [phone] Specimen Comment: A courtesy copy of this report has been sent to [facility] us Margaret Oquendo NP LABORATORY Final Res ult [facility] [address] [place] [address] [facility] 1 * PAP SMEAR (09/19/2021) 09/19/2021 Narrative 09/19/2021 Ordered by an unspecified provider. us Documents Scanned SCANNING Final Result * COLONOSCOPY GENERIC (11/07/2020) 11/07/2020 Narrative 11/07/2020 Ordered by an unspecified provider. us Documents Scanned SCANNING Final Result from Last 3 Months or Most Recently Relevant to Health Maintenance Insurance [facility] Care Teams Hall Worker Relationship Specialty Start Date End Date Margaret Oquendo NP [address] [place] [address] PCP - General NURSE PRACTITIONER 03/19/21
--- OUTSIDE RECORDS SUMMARY | 2025-03-17 18:59 | XMS_ITS | Encounter Summary ---
Author Organization [facility] Address [address] [place] [address] Care Team Providers Care Fisher Oyster Name Role Phone Margaret Oquendo NP Primary Care Provider [phone] [phone] Encounter Details Date Type Department Care Team (Late st Contact Info) Description 02/15/2024 PlexPress Message Enc [facility] Medical Group Family Medicine - [place] [address] [facility] [address] [place], [place] [address] [phone] Margaret Oquendo, TREASURE [address] [place] [address] 4:30 today Social History Tobacco Use Types Packs/Day Years [...] on filedocumented in this encounter Care Teams Fisher Oyster Relationship Specialty Start Date End Date Margaret Oquendo NP [address] [place] [address] PCP - General NURSE PRACTITIONER 03/19/21 documented as of this encounter
--- OUTSIDE RECORDS SUMMARY | 2025-03-17 18:59 | XMS_ITS | Encounter Summary ---
Author Organization [facility] Address [address] [place] [address] Care Team Providers Care Botany Teacher Name Role Phone Margaret Oquendo NP Primary Care Provider [phone] [phone] Encounter Details Date Type Department Care Team (Late st Contact Info) Description 01/14/2024 E[employer] Management Message Enc [facility] Medical Group Family Medicine - [place] [address] [place] [phone] Erica Erickson MD [address] [place] [phone] Metal Fabricator Welder Social History Tobacco Use Types Packs/Day Years [...] as of this encounter Progress Notes * Margaret Oquendo NP - 01/14/2024 4:[address] referral to dermatology tomorrow for both Niurka and Jeimy please. See below. documented in this encounter Plan of Treatment Not on file documented as of this encounter Visit Diagnoses Not on filedocumented in this encounter Care Teams Botany Teacher Relationship Specialty Start Date End Date Margaret Oquendo NP [address] [place] [address] [place] [address] PCP - General NURSE PRACTITIONER 03/19/21 documented as of this encounter
--- OUTSIDE RECORDS SUMMARY | 2025-03-17 18:59 | XMS_ITS | Encounter Summary ---
Author Organization [facility] Address [address] [place] [address] Care Team Providers Care Funeral Service Apprentice Name Role Phone Margaret Oquendo NP Primary Care Provider [phone] [phone] Encounter Details Date Type Department Care Team (Late st Contact Info) Description 11/04/2022 Millennium MusicMediat Message Enc [facility] Medical Group Family Medicine - [place] [address] [facility] [address] [place], [place] [address], [place] [phone] Margaret Oquendo, TREASURE [address] [place], [place] [address] [place] Social History Tobacco Use Types Packs/Day Years [...] PM CDT documented as of this encounter Functional Status * Over the past 2 weeks, how often have you been bothered by any of the following problems? Question Answer Date of Assessment Author Status Little interest or pleasure in doing things Not at all 11/04/2022 2:51 PM CDT Sherry Nino MA Acti ve Feeling down, depressed, or hopeless Not at all 11/04/2022 2:51 PM CDT Sherry Nino MA Active Patient Health Questionnaire-2 Score 0 11/04/2022 2:51 PM CDT Sherry Nino M A Active * If you checked off any problems on this questionnaire so far, Question Answer Date of Assessment Author Status How difficult have these problems made it for you to do your work, take care of things at home, or get along with other people? Not difficult at all 11/04/2022 2:51 PM CDT Sherry Nino MA Active documented as of this encounter Plan of Treatment Not on file documented as of this encounter Visit Diagnoses Not on filedocumented in this encounter Care Teams Funeral Service Apprentice Relationship Specialty Start Date End Date Margaret Oquendo NP [address] [place] [address] PCP - General NURSE PRACTITIONER 03/19/21 documented as of this encounter
--- OUTSIDE RECORDS SUMMARY | 2025-03-17 18:59 | XMS_ITS | Encounter Summary ---
Author Organization [facility] Address [address] [place] [address] Care Team Providers Care Fibrous Wallboard Inspector Name Role Phone Margaret Oquendo NP Primary Care Provider +1 [phone] Encounter Details Date Type Department Care Team (Late st Contact Info) Description 03/16/2024 Logly Message Enc [facility] Medical Group Family Medicine - [place] [address] [facility] [address] [place], [place] [address], [place] [phone] Margaret Oquendo, TREASURE [address] [place] [address] [place], [place] [address] Phentermine Social History Tobacco Use Types Packs/Day Years [...] on filedocumented in this encounter Care Teams Fibrous Wallboard Inspector Relationship Specialty Start Date End Date Margaret Oquendo NP [address] [place] [address] [place] [address] PCP - General NURSE PRACTITIONER 03/19/21 documented as of this encounter
--- OUTSIDE RECORDS SUMMARY | 2025-03-17 18:59 | XMS_ITS | Encounter Summary ---
Author Organization [facility] Address [address] [place] [address] Care Team Providers Care Mid Level Project Manager Name Role Phone Margaret Oquendo NP Primary Care Provider [phone] [phone] Encounter Details Date Type Department Care Team (Late st Contact Info) Description 04/05/2024 Backblaze Message Enc [facility] Medical Group Family Medicine - [place] [address] [facility] [address] [place] [phone] Margaret Oquendo NP [address] [place] [address] [place], [place] [address] Pantoprazole Social History Tobacco Use Types Packs/Day Years [...] Progress Notes * Margaret Oquendo NP - 04/05/2024 11:50 AM CDT Ok to send in if it shows she has been taking. GI must be ordering it. documented in this encounter Plan of Treatment Not on file documented as of this encounter Visit Diagnoses Not on filedocumented in this encounter Care Teams Mid Level Project Manager Relationship Specialty Start Date End Date Margaret Oquendo NP [address] [place] [address] [place] [address] PCP - General NURSE PRACTITIONER 03/19/21 documented as of this encounter
--- OUTSIDE RECORDS SUMMARY | 2025-03-17 18:59 | XMS_ITS | Encounter Summary ---
Author Organization [facility] Address [address] [place] [address] Care Team Providers Care Unarmed Security Officer Name Role Phone Margaret Oquendo NP Primary Care Provider +1 [phone] Encounter Details Date Type Department Care Team (Late st Contact Info) Description 08/19/2024 Atticous Message Enc [facility] Medical Group Family Medicine - [place] [address] [facility] [address] [place], [place] [address] [address] [place], [facility] Provider Contrave Social History Tobacco Use Types Packs/Day Years [...] Total Score: 8 05/10/20 24 1:39 PM TIRE CHANGER documented as of this encounter Care Teams Unarmed Security Officer Relationship Specialty Start Date End Date Margaret Oquendo NP [address] [place] [address] [place] [address] PCP - General NURSE PRACTITIONER 03/19/21 documented as of this encounter
--- OUTSIDE RECORDS SUMMARY | 2025-03-17 18:59 | XMS_ITS | Encounter Summary ---
Author Organization [facility] Address [address] [place] [address] Care Team Providers Care Board Writer Name Role Phone Margaret Oquendo NP Primary Care Provider [phone] [phone] Encounter Details Date Type Department Care Team (Late st Contact Info) Description 07/28/2024 Cherry Bugs Message Enc [facility] Medical Group Family Medicine - [place] [address] [facility] [address] [place] [phone] Margaret Oquendo NP [address] [place] [address] [place], [place] [phone] Bupropion Social History Tobacco Use Types Packs/Day Years [...] Progress Notes * Margaret Oquendo NP - 07/28/2024 3:06 PM CST Please let patient know she is currently on the highest dose of Wellbutrin of 300mg that I prescribe. If she feels she is needing discuss something different for anxiety or depression to schedule anappointment in office. AUDITOR documented in this encounter Plan of Treatment Not on file documented as of this encounter Visit Diagnoses Not on filedocumented in this encounter Additional Health Concerns Assessment Noted Time PHQ-9 Depression Total Score: 8 05/10/20 24 1:39 PM CITY AUDITOR documented as of this encounter Care Teams Board Writer Relationship Specialty Start Date End Date Margaret Oquendo NP [address] [place] [address] PCP - General NURSE PRACTITIONER 03/19/21 documented as of this encounter
[2025-03-17 19:00] VITALS: BP 127/74; PULSE 95; RESP 16; TEMP 36.6; O2SAT 100
--- OUTSIDE RECORDS SUMMARY | 2025-03-17 19:00 | XMS_ITS | Encounter Summary ---
Author Organization [facility] Address [address] [place] [address] Care Team Providers Care Fluorescent Lamp Replacer Name Role Phone Margaret Oquendo NP Primary Care Provider [phone] Encounter Details Date Type Department Care Team (Late st Contact Info) Description 10/13/2023 wishkicker Message Enc [facility] Medical [facility] Family Medicine - [place] [address] [place] [address] Demi [facility] Provider Medication Social History Tobacco Use Types Packs/Day Years [...] on filedocumented in this encounter Care Teams Fluorescent Lamp Replacer Relationship Specialty Start Date End Date Margaret Oquendo NP [address] [place] [address] PCP - General NURSE PRACTITIONER 03/19/21 documented as of this encounter
--- OUTSIDE RECORDS SUMMARY | 2025-03-17 19:00 | XMS_ITS | Encounter Summary ---
Author Organization [facility] Address [address] [place] [address] Care Team Providers Care Color Blender Name Role Phone Margaret Oquendo NP Primary Care Provider [phone] Encounter Details Date Type Department Care Team (Late st Contact Info) Description 05/07/2023 Kiwiple Message Enc [facility] Medical Group Family Medicine - [place] [address] [facility] [address] [place] [phone] Margaret Oquendo NP [address] [place], [place] [address] Tsh Social History Tobacco Use Types Packs/Day Years [...] on filedocumented in this encounter Care Teams Color Blender Relationship Specialty Start Date End Date Margaret Oquendo NP [address] [place] [address] PCP - General NURSE PRACTITIONER 03/19/21 documented as of this encounter
--- OUTSIDE RECORDS SUMMARY | 2025-03-17 19:00 | XMS_ITS | Encounter Summary ---
Author Organization [facility] Address [address] [place] [address] Care Team Providers Care Sack Repairer Name Role Phone Margaret Oquendo NP Primary Care Provider [phone] Encounter Details Date Type Department Care Team (Late st Contact Info) Description 06/06/2022 SavvySource for Parents Message Enc [facility] Medical Group Family Medicine - [place] [address] [facility] [address] [place], [place] [address] [id number] Margaret Oquendo, TREASURE [address] [place] [address] [place], [place] [address] Jeromy Bolden high white blood cells Social History Tobacco Use Types Packs/Day Years [...] suspected to have Coronavirus/COVID-19? No / Unsure 05/20/2022 1:12 PM POLE FRAMER documented as of this encounter Plan of Treatment Not on file documented as of this encounter Visit Diagnoses Not on filedocumented in this encounter Care Teams Sack Repairer Relationship Specialty Start Date End Date Margaret Oquendo NP [address] [place] [address] PCP - General NURSE PRACTITIONER 03/19/21 documented as of this encounter
--- OUTSIDE RECORDS SUMMARY | 2025-03-17 19:00 | XMS_ITS | Encounter Summary ---
Author Organization [facility] Address [address] [place] [address] Care Team Providers Care Japanese Interpreter Name Role Phone Margaret Oquendo NP Primary Care Provider [phone] Encounter Details Date Type Department Care Team (Late st Contact Info) Description 10/14/2023 [email or web address] Message Enc [facility] Medical Group Family Medicine - [place] [address] [facility] [address] [place] [address] Demi [facility] Provider Jeimy Social History Tobacco Use Types Packs/Day Years [...] on filedocumented in this encounter Care Teams Japanese Interpreter Relationship Specialty Start Date End Date Margaret Oquendo NP [address] [place] [address] PCP - General NURSE PRACTITIONER 03/19/21 documented as of this encounter
--- OUTSIDE RECORDS SUMMARY | 2025-03-17 19:00 | XMS_ITS | Patient Health Record ---
Author Organization [facility] Address [address] [place] [address] Care Team Providers Care Host And Hostess Name Role Phone Margaret Oquendo APN Primary Care Provider Asiya RUSSO FLEET SALESPERSON, [place] Unavailable [phone] Allergies No Known Allergies Reason For Referral No Information Medications Medication SIG (Take, Route, Frequency, Duration) Notes Start Date End Date Status metFORMIN HCl 500 MG 1 tablet with a johnathan l Orally Once a day Active Ferrous Sulfate 325 (65 Fe) MG 1 tablet Orally Once a day Active Omeprazole 20 MG 1 capsule 30 minutes before morning meal Orally Once a day Active Rosuvastatin Calcium 10 MG 1 tablet Oral ly Once a day Active Topamax 25 MG 1 tablet Orally Once a day BID Active Synthroid 100 MCG 1 tablet in the morn ing on an empty stomach Orally Once a day Active Phentermine HCl 15 MG 1 capsule Orally O nce a day Active Vitamin D2 10 MCG (400 UNIT) 2 tablets Orally Once a day Active Problems Problem Type SNOMED Code ICD Code Onset Dates Problem Status W/U Status Risk Notes Problem Fatty liver (523399678) Fatty (change of) liver, not elsewhere classified (K76.0) Active confirmed Plan Of Treatment No Information Insurance Providers Payer Name Payer Address Payer Phone Subscriber Number Group Number Insured Name Patient Relationship to Insured Coverage Start Date Coverage End Date [facility] PPO [address] [place], [place] [id number] Niurka Bolden Self - patient is the insured Medical (General) History Medical History History ICD Code hx thyroid cancer hx TIA hx kidney stones GERD fatty liver hx gallstones IBS hx colon polyps hx hemorrhoids migraine headaches Surgical History Surgery Date(Month/Year) thyroidectomy lasik surgery colonoscopy 2021
--- OUTSIDE RECORDS SUMMARY | 2025-03-17 19:00 | XMS_ITS ---
Author Organization [facility] Address [address] [facility] [address] [place] [address] Phone Care Team Providers Care Environmental Auditor Name Role Phone Gasper Butler MD Unavailable [phone] Kisha Tello MD Unavailable [phone] Margaret Oquendo MD Primary Care Provider [phone]- [phone] Cece Gutierrez MD Unavailable [phone] Active Problems Problem Noted Date Diagnosed Date Presbyopia 10/05/2024 Assessment & Plan (10/06/2024 3:15 PM CDT): Accounting for c/o blur. OTC readers prn. Bilateral ocular hypertension 10/05/2024 Assessment & Plan (10/06/2024 3:16 PM CDT): New patient. Incidental findings of borderline iop OU. Healthy appearing optic discs. No fm hx. Pachy was broken todya. No loss on OCT. Okay to follow with annual exam and testing. Gallbladder disease 06/08/2024 Insulin resistance 04/30/2023 Assessment & Plan (10/06/2024 3:16 PM CDT): No diabetic retinopathy and no macular edema on dilated exam today. Stressed the importance of glycemic control in preventing diabetic eye disease. Breast pain in female 04/29/2023 Abnormal mammogram of left breast 04/29/2023 Kidney stones 02/05/2023 Overview (03/11/2023): Added automatically from request for surgery [id number] Hyperglycemia 12/18/2022 Irregular periods 10/13/2022 Impaired fasting glucose 04/01/2022 Loss of hair 04/01/2022 Obstructive sleep apnea syndrome 02/17/2022 Hypothyroidism 02/14/2022 Migraine with aura and witho ut status migrainosus, not intractable 12/04/2021 Over weight 11/30/2020 BMI 28.0-28.9,adult 11/30/2020 Elevated liver enzymes 04/06/2020 Gastroesophageal reflux disease without esophagi tis 04/06/2020 Iron deficiency anemia 04/06/2020 Trapezius strain 04/06/2020 Weight gain 02/29/2020 Postoperative hypothyroidism 08/01/2019 Assessment & Plan (08/01/2019 1:33 PM NEUROLOGY SPECIALIST): -change levothyroxine to Synthroid and increase the dose to 112 mcg p.o. daily. -check TSH, free T4 and free T3 in 6-8 weeks. Adjust dose based on blood work results. -follow-up in 6 months. Vitamin D deficiency 08/01/2019 Assessment & Plan (08/01/2019 1:34 PM NEUROLOGY SPECIALIST): -she has been taking ergocalciferol 50,000 international units weekly for the past 2 weeks. -recommended to continue with ergocalciferol 50,000 international units weekly for 3 months and then switched to [id number] cholecalciferol 2000 international units p.o. daily. History of colonic polyps 06/27/2019 History of transient ischemic attack 06/27/2019 History of urinary stone 06/27/2019 External hemorrhoids 06/26/2019 Menorrhagia 06/26/2019 Papillary carcinoma of thyroid 06/26/2019 Thyroid cancer 03/11/2019 Cancer Staging:Clinical stage from 03/01/2019:Stage I(cT2, cN0, cM0, Age at diagnosis: < 55 years) - Signed by Gasper Butler MD on 03/16/2019 Overview (03/11/2019): Added automatically from request for surgery [id number] Assessment & Plan (08/01/2019 1:39 PM NEUROLOGY SPECIALIST): -papillary thyroid cancer with greatest dimension 2.3 cm and extrathyroidal extension into strap muscles. -status post radioactive iodine therapy with 100 mCi I 131 on 05/05/2019. -post treatment scan shows uptake at thyroid bed. -thyroglobulin and thyroglobulin antibodies negative. -given the persistent uptake at thyroid bed recommend TSH goal of less than 0.1. -her weight based dose of levothyroxine dose is 115 mcg p.o. daily. -recommend switching levothyroxine to Synthroid for better absorption and increase the dose to 112 mcg p.o. daily. Discussed with patient to take Synthroid early in the morning on empty stomach with water and wait at least an hour to eat food. -repeat TSH, free T4 and free T3 in 6-8 weeks. -she has follow-up with Radiation Oncology in October. Migraine without aura and responsive to treatmen t 03/03/2016 Nonalcoholic steatohepatitis (ELIAS) 06/25/2015 Nontoxic single thyroid nodule 06/25/2015 Fatty liver 05/03/2015 Ventricular premature beats 05/03/2015 Current Treatment and Therapy Plans No current plan information found. Past Treatment and Therapy Plans No past plan information found. Treatment Summaries Thyroid cancer (HCC)* Images from the original note were not included. [facility] [address] [place] [phone] This Survivorship Care Plan is a cancer treatment summary and follow-up plan and is provided to youto keep with your health care records and to share with your primary care provider or any of your doctors and nurses. This summary is a brief record of major aspects of your cancer treatment not a detailed or comprehensive record of your care. You should review this with your cancer provider. Treatment Summary and Survivorship Care Plan for Thyroid Cancer Provided by Venice Patton RN on 05/30/19 General Information Patient name Niurka Bolden (home) Date of 1980 Health Care Providers (Including Names, Institutions) Provider Name: Contact Information: Primary Care Physician Porter Jennifer, DO [phone] Surgeon Kisha Tello MD [phone] Radiation Oncologist Gasper Butler MD [phone] Treatment Summary Cancer Diagnosis Information Diagnosis Thyroid cancer ([facility]/HCC) Diagnosis date 03/11/2019 Staging information Cancer Staging Thyroid cancer ([facility]) Staging form: Thyroid - Differentiated, AJCC 8th Edition - Clinical stage from 03/01/2019: Stage I (cT2, cN0, cM0, Age at diagnosis: < 55 years) - Signed by Gasper Butler MD on 03/16/2019 Family History Cancer Cancer-related family history includes Cervical cancer in her maternal grandmother. Treatment Completed Surgery Surgery date 03/17/19 Surgical procedure / location / findings Total thyroidectomy with recurrent laryngeal nerve monitoring- Papillary thyroid Carcinoma Radiation Radiation Therapy Start Dose I-131 05/05/19 100 mCi Systemic Therapy (chemotherapy, hormonal therapy, other) Levothyroxine oral daily Lifetime Dose Tracking Lifetime Dose Tracking No doses have been documented on this patient for the following tracked chemicals: doxorubicin, epirubicin, idarubicin, daunorubicin, mitoxantrone, bleomycin, mitomycin, cyclophosphamide, carmustine,ifosfamide, etoposide, doxorubicin HCl pegylated liposomal, etoposide phosphate, valrubicin, doxorub icin isotoxic equivalent Research Studies No available studies Treatment Ongoing: Additional Treatment Start Date Planned Duration Possible Side Effects Levothyroxine 04/2019 lifetime Fatigue, nausea, dizziness Persistent symptoms or side effects that have continued after finishing treatment: endocrine abnormalities Follow-up Care Plan Your follow-up care plan is design to inform you and primary care providers regarding the recommended and required follow-up, cancer screening and routine health maintenance that is needed to maintain optimal health. Coordinating Provider When/How often Porter Rodriguez History & Physical exam yearly for 10 years then by primary care every 2 years when10 years out. Cancer Surveillance or other Recommended Tests Coordinating Provider Test How Often Gasper Butler MD TSH, Free T4, Thyroglobulin Yearly Gasper Butler MD Neck ultrasound As indicated by provider Porter Rodriguez Chest X-Ray Per provider recommendation Possible late- and long-term effects that someone with this type of cancer and treatment may experience: Osteoporosis Sensitivity to cold Dry mouth Muscle weakness Decreased saliva production Muscle aches Voice difficulties Thinning hair Swallowing difficulties Depression Fatigue Impaired memory Sleep disturbances Fatigue Many patients experience some level of fatigue. Some patients experience severe and ongoing fatigue. An active lifestyle with healthy sleep patterns can improve your energy levels. Talk to your provider about ongoing (more than 3 months) fatigue. Please continue to see your primary care provider for all general health care recommended for a person your age, including cancer-screening tests. Any symptoms should be brought to the attention of your provider: Anything that represents a brand new symptom; Anything that represents a persistent symptom; Anything you are worried about that might be related to the cancer coming back. Cancer survivors may experience issues with the areas listed below. If you have any concerns in these or other areas, please speak with your doctors or nurses to find out how you can get help with them. Anxiety and depression Emotional and mental health Fatigue Fertility Financial advice or assistance Insurance Memory or concentration loss Parenting Physical functioning School/work Sexual functioning Stopping smoking Weight changes Other A number of lifestyle/behaviors can affect your ongoing health, including the risk for the cancer coming back or developing another cancer. Discuss these recommendations with your doctor or nurse: Eat a healthy diet: focus on lean meats and proteins, more fruits, vegetables and whole grains and low in sugars and fats. Limit red meat and avoid processed meat. Maintain a healthy weight; avoid being overweight. Aim for a normal body mass index (BMI) of 18.5-24.9. Help learning to eat healthier, call the stripe marker at: [facility] . Have an active lifestyle, strive for 30 minutes of moderate exercise 5 times a week and strength orresistance training at least twice a week. Use broad-spectrum (UVA+UVB) sunscreen with SPF 30 or greater, is water resistant, limit time spentin the sun (10 am-4pm), wear hat, wear UV protective clothing, wear sunglasses. Never use a tanningbed. Skin that was irradiated may be more sensitive over your lifetime. Do not smoke or chew tobacco; participate in a smoking cessation program. Limit alcohol intake, 1 drink per day for a woman and 2 drinks per day for a man. Resources you may be interested in: Journey forward--http://www.journeyforward.org/ Click For Patients Click Survivor Library for patients Cancer.Net--http://www.cancer.net/survivorship Livestrong--http://www.livestrong.org/ Livestrong Care Plan--http://www.livestrongcareplan.org/ [place]--http://www.cancer.gov/cancertopics/factsheet/therapy/followup [place] Facing Forward: Life After Cancer Treatment--http://www.cancer.gov/cancertopics/coping/khft-zjqga-xnmlvoujf National Coalition for Cancer Survivorship--http://www.canceradvocacy.org/ National Comprehensive Cancer Network-http://www.nccn.org/patients/resources NCC Cancer Survival Toolbox-- http://www.canceradvocacy.org/toolbox/ CancerCare--http://www.cancercare.org/ Healthcare.gov (insurance marketplace)-- https://www.healthcare.gov/ Cancer and Careers--http://www.cancerandcareers.org/en [employer] Cancer Society:The Survivorship Center--http://www.cancer.org/survivorshipcenter Cancer Support Community- http://www.cancersupportcommunity.org/ Cancer Rehabilitation--www.[facility].org/rehab Other comments: Resolved Problems Problem Noted Date Diagnosed Date Resolved Date BMI 29.0-29.9,adult 02/29/2020 12/01/19 21
--- OUTSIDE RECORDS SUMMARY | 2025-03-17 19:00 | XMS_ITS | Data Portability ---
Author Organization [facility] [employer], Main Office Address [address] [place] [address] Care Team Providers Care Tip Inserter Name Role Phone SIRIA METZ Primary Care Provider [phone] Assessment No assessment recorded. Plan of Treatment Reminders Order Date Submit Date Provider Last Modified By Organization Details Last Modified Time Details Appointments None recorded. Lab HbA1c (hemoglobin A1c), blood 2022 023 PAOLI [facility], 2022 [address], [address], [place], [address], 3 18:00:56 CMP, serum or plasma 2022 023 DIVINA [facility], 2022 Jessica Cody, [address], [place], [address], 3 08:48:27 lipid panel, serum 2022 023 PAOLI [facility], 2022 Jessica Cody, [address], [place], [address], 3 18:00:56 cortisol, am, serum 2022 023 PAOLI [facility], 2022 Jessica Cody, [address], [place], [address], 3 15:06:39 dexamethaso ne, serum 2022 023 PAOLI [facility], 2022 Jessica Cody, [address], [place], [address], 3 14:40:36 TSH + free T4, serum 2022 023 [facility], 2022 Jessica Cody, [address], [place], [address], 3 17:59:20 T3, free, serum or plasma 2022 023 [facility], 2022 Jessica Cody, [address], [place], [address], 3 17:59:21 thyroglobul in Ab, serum 2022 023 [facility], 2022 Jessica Cody, [address], [place], [address], 3 14:28:15 Referral None recorded. Procedures None recorded. Surgeries None recorded. Imaging None recorded. Medication Orders metformin ER 500 mg tablet,exte nded release 24 hr 2022 023 [id number], [address], [place], [id number], 3 18:20:45 dexamethaso ne 1 mg tablet 2022 023 [facility] #95904, [address], [place], [id number], 3 17:59:11 Synthroid 75 mcg tablet 2022 023 PAOLI [facility], [address] , [address], [place], [address], 3 18:21:10 Patient TargetsNo targets recorded. Patient InstructionsNo instructions recorded. Reason for Referral None Reported. Results Created Date Observation Date Name Description Value Unit Range Abnormal Flag Note LastModifiedBy Organization Detail LastModifiedTime 04/21/20 22 04/21/2022 US, liver No observ ation record ed. [id number] [facility] [address], [place], [address], 08/20/2022 17:15:39 04/22/20 22 04/21/2022 US, liver No observ ation record ed. [id number] [facility] [address], [place], [address], 08/20/2022 17:15:39 02/18/20 23 02/16/2023 MAMMO , scree queenie, digit al, bilat eral No observ ation record ed. [email or web address] [place] [address] 20[address], [place], [address], 03/03/2023 17:43:15 02/18/20 23 02/02/2023 MAMMO , scree queenie, digit al, bilat eral No observ ation record ed. [email or web address]22 [address], [place], [address], 03/03/2023 17:43:43 Result Notes None recorded. Problems Name Problem SNOMED Code Status Onset Date Resolution Date Notes Provider Name and Address Organization Details Recorded Time Hypothyroidis m 14180896 Active 2021 Not Available [facility] 3 03:21:39 Postoperative hypothyroidis m 03514406 Active 2021 Not Available [facility] 3 03:21:39 Loss of hair 897593965 Active 2021 Not Available [facility] 3 03:21:39 Impaired fasting glycemia 112209171 Active 2021 Not Available [facility] 3 03:21:39 Weight gain 9969911 Active 2022 Not Available [facility] 3 03:21:39 Irregular periods 03049704 Active 2022 Not Available [facility] 3 03:21:39 Hyperglycemia 59570073 Active 2022 Not Available [facility] 3 03:21:39 Problem Notes None recorded. Procedures Surgical History Date Name Laterality Status Provider Name and Address Organization Details Recorded Time Lasik completed Not Available [facility] 06/2022 17:13:09 thyroidectomy completed Not Available [facility] 08/20/2022 17:13:09 Imaging Results None recorded. Procedure Notes None recorded. Medical Equipment None Reported. Allergies Allergen ID Allergen Name Allergen Category Reaction Reaction Severity Criticality Documentation Date Start Date Code Code System Note Provider Name and Address Organization Details Recorded Time 23815 Stadol medicatio n itching Not available Not available 08/20/2022 67511 RxNorm hallu cinat ion Not Available [facility] 3 17:15:37 47546 erythromy ivonne medicatio n Not available Not available Not available 08/20/2022 4053 RxNorm sore stoma ch Not Available [facility] 3 17:15:37 Medications Name Sig Start Date Stop Date Status Note LastModified by Organization Details LastModified Time famotidin e 40 mg tablet active Not Available Not Available Not Available Synthroid 100 mcg tablet TAKE 1 TABLET BY MOUTH EVERY DAY 08/25 completed Not Available Not Available Not Available phentermi ne 15 mg capsule active Not Available Not Available Not Available topiramat e 25 mg tablet TAKE 1 TABLET BY MOUTH EVERY DAY FOR 1 WEEK. INCREASE TO 2 TABLETS BY MOUTH EVERY DAY active Not Available Not Available No t Available dexametha sone 1 mg tablet take dexa tablet at 10 pm night before 8 am cortisol 2022 active Not Available Not Available Not Avai lable Synthroid 88 mcg tablet Take 1 tablet every other day by oral route in the morning for 90 days. 2022 active Take 1 tablet by mouth Thursday Through Thursday , Half tablet on Thursday Not Available Not Available Not Available Synthroid 75 mcg tablet Take 1 tablet every other day by oral route in the morning for 90 days. 2022 active Not Available Not Available Not Avai lable omeprazol e 20 mg capsule,d elayed release Take 1 capsule every day by oral route. active Not Available Not Available No t Available ergocalci ferol (vitamin D2) 1,250 mcg (50,000 unit) capsule TAKE 1 CAPSULE BY MOUTH 2 TIMES A WEEK WITH FOOD active Not Available Not Available No t Available metformin ER 500 mg tablet,ex tended release 24 hr Take 1 tablet twice a day by oral route before meals for 90 days. 2022 active Not Available Not Available Not Avai lable spironola ctone 50 mg tablet Take 1 tablet every day by oral route in the morning for 90 days. 2022 active Not Available Not Available Not Avai lable rosuvasta tin 10 mg tablet Take 1 tablet every day by oral route. active Not Available Not Available No t Available FeroSul 325 mg (65 mg iron) tablet Take 1 tablet every day by oral route. active Not Available Not Available No t Available Vitamin D2 2021 active 50, 000 IU take 1 capsule by mouth 2x a week with food Not Available Not Available Not Available ID NOW COVID-19 Test Kit TEST DIRECTED TODAY active Not Available Not Available No t Available Paxlovid 300 mg (150 mg x 2)-100 mg tablets in a dose pack FOLLOW PACKAGE DIRECTIO NS 08/25 completed Not Available Not Available Not Available Vitals Date Recorded Body height Body mass index (BMI) Body weight Body temperature Respiratory rate Heart rate Systolic And Diastolic Provider Name and Address Organization Details Last Updated DateTime 3 154.94 cm 25.7 kg/m2 44759.8 4 g 97.9 [degF] 12 /min 81 /min 121/78 mm[Hg] Demi Casillas RN [place] [facility] 3 17:43:27 Date Recorded Body mass index (BMI) Body height Oxygen saturation Oxygen saturation in Arterial blood by Pulse oximetry Heart rate Body temperature Body weight Systolic And Diastolic Provider Name and Address Organization Details Last Updated DateTime 2 29.2 kg/m2 157.48 cm 96 % 96 % 83 /min 98 [degF] 91113.0 6 g 140/100 mm[Hg] Not Available [facility] 3 17:13:56 Date Recorded Body mass index (BMI) Body height Oxygen saturation Oxygen saturation in Arterial blood by Pulse oximetry Heart rate Body temperature Body weight Systolic And Diastolic Provider Name and Address Organization Details Last Updated DateTime 2 28.6 kg/m2 157.48 cm 98 % 98 % 98 /min 97.6 [degF] 67012.8 5 g 120/75 mm[Hg] Not Available [facility] 3 17:13:56 Social History Question Answer Notes LastModified by [employer] Details LastModified Time Tobacco Smoking Status Never Smoker Not Available [facility] 08/20/2022 17:13:06 What Is Your Level Of Caffeine Consumption? Occasional [id number] Information not available 08/20/2022 What Type Of Diet Are You Following? REGULAR [id number] 026 Information not available 08/20/2022 How Many Days Of Moderate To Strenuous Exercise, Like A Brisk Walk, Did You Do In The Last 7 Days? 5 [id number] 026 Information not available 08/20/2022 What Is Your Relationship Status? [id number] Information not available 08/20/2022 Do You Have Any Dietary Restrictions? No [id number] 026 Information not available 08/20/2022 Sex: Female Functional Status Question Answer Note LastModified by [employer] Details LastModified Time What is your level of alcohol consumption? None [id number] 26 Information not available 08/20/2022 What is your exercise level? Occasional [id number] 26 Information not available 08/20/2022 Mental Status None recorded. Family History Relationship Description Onset Age of this Age Resolved Age Notes LastModified by Organization Details LastModified Time Maternal Aunt Disorder of thyroid gland [id number] Not available 08/20/2022 17:13:10 Notes:Hashimotos: paternal s candice of fam Medical History Condition Response CANCER: SPECIFY Y HEADACHES/MIGRAINES Y GI PROBLEMS Y ANEMIA/BLOOD DISORDER Y GERD/NAUSEA Y KIDNEY DISEASE LIVER DISEASE HEART ARRHYTHMIA Y RADIATION / CHEMOTHERAPY Y Gynecological HistoryNo gynecological history recorded. Obstetrics History GPAL:G 0 P 0 0 0 0 Past Encounters Encounter ID Performer Location Encounter Start Date Encounter Closed Date Diagnosis/Indication Diagnosis SNOMED-CT Code Diagnosis ICD10 Code Diagnosis IMO Codes Diagnosis Note [id number] MD SILVIA Mcclain_CHAPARRO [facility] [address] [place] [address] 02/03/2022 00:00:00 02/03/2022 11:32:14 [id number] MD SILVIA Mcclain_CHAPARRO [facility] [address] [place] [address] 04/08/2022 00:00:00 04/08/2022 15:00:43 [id number] Carla Mari MD [facility] [address] [place] [address] 08/25/2022 17:28:27 08/27/2022 15:58:32 Postoperative hypothyroidism 23228046 E89.0 TSH suppressed and FT4 in high range- goal 0.1 up to 0.5 uIU/ML-pat ient having hair loss- will reduce her synthroid to 75 mcg daily. She will see oncology this spring and discuss whole body thyroid scan to be completed this year for monitoring of thyroid ca hx. TG panel negative - continue to monitor. Weight gain 1066861 R63. 5 Will send for low dose dexa suppressio n testing to screen for hypercorti solic state. Impaired f asting glycemia 438149121 R73.01 Will uptitrate metformin to twice daily with meals. Recommende d she incorporat e natural insulin nuisance animal damage control agent s such as pears, apples, cinnamon, hasmukh and sweet potatoes to help mobilize her endogenous insulin. Recommende d up to 150 minutes of moderate level activity/e xercise weekly. Spent up to 28 minutes preparing to see the patient (eg, review of tests), obtaining and/or reviewing separately obtained history, performing a medically appropriat e examinatio n and evaluation , counseling and educating the patient, ordering medication s, tests, along with documentin g clinical informatio n in the electronic health record, independen tly interpreti ng results and communicat ing results to the patient. RTC in 4-6 months. Patient was provided a handwritte n lab order which contains our fax number. If she chooses to go outside of the [facility] system to obtain labwork she was advised to provide our fax number and my informatio n to the lab she will be obtaining labwork from in order to have her labs properly forwarded over for me to review so there is no loss of follow up due to use of outside network. She was also advised to contact our clinic informing us that she has completed her labwork so we are aware we will need to reach out to the appropriat e laboratory to request her results be forwarded to us so I might have the ability to review and make further medical decision making in her case. She voiced understand ing. Health Concerns Section Related Observation LastModified by Organization Detai ls LastModified Time None Recorded Concern Status LastModified by Organization Details LastModified Time None Recorded Advance Directives Directive None Recorded Payers Insurance Date Sequence Insurance Name Policy Number Policy Juarez Covered Member ID Juarez Member ID Guarantor Name 08/25/2022 1 [employer] [id number] Minh Bolden [id number] Niurka Bolden 08/25/2022 1 [employer] [id number] Niurka Bolden [id number] Niurka Bolden Notes Date Note Type Note Provider Name and Address Organization Details Recorded Time 08/25/2022 text/html ROS as noted in the HPI 42 yo female comes in for follow up in management of 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 Since her last visit from June labwork we dropped her synthroid to 88 mcg daily. we send for whole body thyroid scan. She will be following up with her oncologist soon at [facility]. we added metformin with dinner. She did take phentermine and topamax- to help with weight management. She lost the weight she wanted to and is eager to consider coming off the medication. Patient has lost 21 pounds since fall. Started meds in Feb and came off in . She weaned off the topamax and phentermine since then-she has gained 5 pounds back. labs from 08/25/22:glucose 106 mg/dLTSH of 0.015 uIU/mlFT4 of 1.81 ng/dL liver u/s from 04/12:sludge in gallbladder / possible polyp; and steatosis of liverlabs from 06/30/22:TSH of 0.021 uIU/mlFT4 of 1.82 ng/dLglucose 106 mg/dLcr normalALT 41 U/LLKM/samson ab negANA negiron sat 15%normal ferritin Carla Mari MD [address] [facility], [place], [address], [place] [facility] [employer] 08/25/2022 18:22:05 OBGyn Episode No OBEpisode recorded.
--- OUTSIDE RECORDS SUMMARY | 2025-03-17 19:00 | XMS_ITS | Encounter Summary ---
Author Organization [facility] Address [address] [place] [address] Care Team Providers Care Rubber Roller Grinder Name Role Phone Margaret Oquendo NP Primary Care Provider [phone] Encounter Details Date Type Department Care Team (Late st Contact Info) Description 10/28/2023 SurgeryEdu Message Enc [facility] Family Medicine - [place] [address] [facility] [address] [place] [phone] Margaret Oquendo, TREASURE [address] [place] [address] [employer] Social History Tobacco Use Types Packs/Day [...] on filedocumented in this encounter Care Teams Rubber Roller Grinder Relationship Specialty Start Date End Date Margaret Oquendo NP [address] [place] [address] PCP - General NURSE PRACTITIONER 03/19/21 documented as of this encounter
--- OUTSIDE RECORDS SUMMARY | 2025-03-17 19:00 | XMS_ITS | Encounter Summary ---
Author Organization [facility] Address [address] [place] [address] Care Team Providers Care Pediatric Nephrologist Name Role Phone Margaret Oquendo NP Primary Care Provider [phone] Encounter Details Date Type Department Care Team (Late st Contact Info) Description 10/31/[address] [facility] Family Medicine - [place] [address] [facility] [address] [place], [place] [address], [place] [phone] Margaret Oquendo, TREASURE [address] [place], [place] [address] Brown recluse bite Social History Tobacco Use Types Packs/Day Years [...] on filedocumented in this encounter Care Teams Pediatric Nephrologist Relationship Specialty Start Date End Date Margaret Oquendo NP [address] [place] [address] PCP - General NURSE PRACTITIONER 03/19/21 documented as of this encounter
--- OUTSIDE RECORDS SUMMARY | 2025-03-17 19:00 | XMS_ITS | Encounter Summary ---
Author Organization [facility] Address [address] [place] [address] Care Team Providers Care System Programmer Name Role Phone Margaret Oquendo NP Primary Care Provider [phone] Encounter Details Date Type Department Care Team (Late st Contact Info) Description 05/28/2023 CoNarrative Message Enc [facility] Family Medicine - [place] [address] [facility] [address] [place], [place] [address], [place] [phone] Margaret Oquendo, TREASURE [address] [place] [address] [place], [place] [address] Migraines Social History Tobacco Use Types Packs/Day Years [...] on filedocumented in this encounter Care Teams System Programmer Relationship Specialty Start Date End Date Margaret Oquendo NP [address] [place] [address] [place] [address] PCP - General NURSE PRACTITIONER 03/19/21 documented as of this encounter
--- OUTSIDE RECORDS SUMMARY | 2025-03-17 19:00 | XMS_ITS | Encounter Summary ---
Author Organization [facility] Address [address] [place] [address] Care Team Providers Care Camp Housekeeper Name Role Phone Margaret Oquendo NP Primary Care Provider [phone] Encounter Details Date Type Department Care Team (Late st Contact Info) Description 03/05/2023 [employer] Message Enc [facility] Family Medicine - [place] [address] [facility] [address] [place], [place] [address], [place] [phone] Margaret Oquendo, TREASURE [address] [place], [place] [address] Jeromy rodgers body pain Social History Tobacco Use Types Packs/Day [...] on filedocumented in this encounter Care Teams Camp Housekeeper Relationship Specialty Start Date End Date Margaret Oquendo NP [address] [place] [address] PCP - General NURSE PRACTITIONER 03/19/21 documented as of this encounter
--- OUTSIDE RECORDS SUMMARY | 2025-03-17 19:00 | XMS_ITS | Encounter Summary ---
Author Organization [facility] Address [address] [place] [address] Care Team Providers Care Operating Room Technician Name Role Phone Margaret Oquendo NP Primary Care Provider [phone] Encounter Details Date Type Department Care Team (Late st Contact Info) Description 09/10/[address] [facility] Family Medicine - [place] [address] [facility] [address] [place], [place] [address], [place] [phone] Margaret Oquendo, TREASURE [address] [place] [address] [place] [address] Benzonatate Social History Tobacco Use Types Packs/Day Years [...] on filedocumented in this encounter Care Teams Operating Room Technician Relationship Specialty Start Date End Date Margaret Oquendo NP [address] [place] [address] [place] [address] PCP - General NURSE PRACTITIONER 03/19/21 documented as of this encounter
--- OUTSIDE RECORDS SUMMARY | 2025-03-17 19:00 | XMS_ITS | Encounter Summary ---
Author Organization [facility] Address [address] [place] [address] Care Team Providers Care Master Plumber Name Role Phone Margaret Oquendo NP Primary Care Provider [phone] Encounter Details Date Type Department Care Team (Late st Contact Info) Description 03/13/2023 [employer] Message Enc [facility] Family Medicine - [place] [address] [facility] [address] [place] [phone] Margaret Oquendo, TREASURE [address] [place], [place] [address] Minh code review Social History Tobacco Use Types Packs/Day Years [...] on filedocumented in this encounter Care Teams Master Plumber Relationship Specialty Start Date End Date Margaret Oquendo NP [address] [place] [address] [place] [address] PCP - General NURSE PRACTITIONER 03/19/21 documented as of this encounter
--- OUTSIDE RECORDS SUMMARY | 2025-03-17 19:00 | XMS_ITS | Encounter Summary ---
Author Organization [facility] Address [address] [place] [address] Care Team Providers Care Armor Reconnaissance Vehicle Crewman Name Role Phone Margaret Oquendo NP Primary Care Provider [phone] Encounter Details Date Type Department Care Team (Late st Contact Info) Description 10/02/2023 [employer] Message Enc [facility] Family Medicine - [place] [address] [facility] [address] [place], [place] [address], [place] [phone] Margaret Oquendo, TREASURE [address] [place] [address] [employer] Social History Tobacco Use Types Packs/Day [...] on filedocumented in this encounter Care Teams Armor Reconnaissance Vehicle Crewman Relationship Specialty Start Date End Date Margaret Oquendo NP [address] [place] [address] [place] [address] PCP - General NURSE PRACTITIONER 03/19/21 documented as of this encounter
--- OUTSIDE RECORDS SUMMARY | 2025-03-17 19:00 | XMS_ITS | Encounter Summary ---
Author Organization [facility] Address [address] [place] [address] Care Team Providers Care Avionics Electrical Engineer Name Role Phone Margaret Oquendo NP Primary Care Provider [phone] [phone] Encounter Details Date Type Department Care Team (Latest Contact Info) Description 01/29/2025 Results Follow-Up [facility] Family Medicine - [place] [address] [facility] [address] [facility] [place], [place] [phone] Margaret Oquendo, TREASURE [address] [place] [address] [place], [place] [phone] RHEUMATOID FACTOR, QUANT, CYCLIC CITRULLINATED PEPTIDE (CCP)ANTIBODY(IGG) Social History Tobacco Use Types Packs/Day Years [...] Total Score: 8 05/10/20 24 1:39 PM COTTON CONVERTER documented as of this encounter Care Teams Avionics Electrical Engineer Relationship Specialty Start Date End Date Margaret Oquendo NP [address] [place] [address] PCP - General NURSE PRACTITIONER 03/19/21 documented as of this encounter
--- OUTSIDE RECORDS SUMMARY | 2025-03-17 19:00 | XMS_ITS | Clinical Summary ---
Author Organization [facility] Address [address] [facility] [address] [place] [address] Phone Care Team Providers Care Assistant Clinical Director Name Role Phone Gasper Butler MD Unavailable [phone] Kisha Tello MD Unavailable [phone] Margaret Oquendo MD Primary Care Provider [phone] Cece Gutierrez MD Unavailable [phone] Allergies Active Allergy Reactions Criticality Noted Date Comments Artichoke Swelling Medium 02/05/2023 Artichoke Bledsoe Extract Swelling Medium 02/05/2023 Butorphanol Itching Medium 04/06/2020 hallutionations Cqz-Bzellulzy-Sqyuqzjdi phen Other (See comments) Low 06/07/2024 Erythromycin Hallucinations,Other (See comments) Medium 06/25/2015 Stomach pain Meperidine Itching Low 06/25/2015 Oxymetazoline Palpitations Low 06/25/2015 Medications rosuvastatin (CRESTOR) 10 mg tablet Take 1 tablet (10 mg total) by mouth every morning Active aspirin 81 mg enteric coated tablet Take 1 tablet (81 mg total) by mouth every morning On hold for surgery 9 Active metFORMIN XR (GLUCOPHAGE XR) 500 mg 24 hr tablet Take 1 tablet (500 mg total) by mouth every 12 hours Active famotidine (PEPCID) 40 mg tablet 3 Active Qulipta 60 mg tablet 60 mg 4 Active buPROPion XL (WELLBUTRIN XL) 300 mg 24 hr tablet Take 1 tablet (300 mg total) by mouth daily 4 Active rizatriptan (MAXALT) 5 mg tablet 1 tablet (5 mg total) once as needed 4 Active loratadine (CLARITIN) 10 mg tablet Take 1 tablet (10 mg total) by mouth daily Active Synthroid 75 mcg tablet Take 1 tablet (75 mcg total) by mouth 4 (four) times a week 48 tablet 1 5 Active Synthroid 88 mcg tablet Take 1 tablet (88 mcg total) by mouth 3 (three) times a week 36 tablet 1 5 Active spironolactone (ALDACTONE) 100 mg tabletIndicatio ns:Hirsutism Take 1 tablet (100 mg total) by mouth daily 30 tablet 2 5 03/14/20 26 Active spironolactone (ALDACTONE) 100 mg tablet Take 1 tablet (100 mg total) by mouth daily 30 tablet 6 5 03/14/20 25 Discontinu ed(Reorder ) Active Problems Problem Noted Date Diagnosed Date [...] (03/11/2023): Added automatically from request for surgery [id number] Hyperglycemia 12/18/2022 Irregular periods 10/13/2022 Impaired fasting [...] 08/01/2019 Assessment & Plan (08/01/2019 1:33 PM ASH WORKER): -change levothyroxine to Synthroid and increase the dose to 112 mcg p.o. daily. -check TSH, free T4 and free T3 in 6-8 weeks. Adjust dose based on blood work results. -follow-up in 6 months. Vitamin D deficiency 08/01/2019 Assessment & Plan (08/01/2019 1:34 PM ASH WORKER): -she has been taking ergocalciferol 50,000 international units weekly for the past 2 weeks. -recommended to continue with ergocalciferol 50,000 international units weekly for 3 months and then switched to idsa-rbs-thibwur cholecalciferol 2000 international units p.o. daily. History [...] (03/11/2019): Added automatically from request for surgery [id number] Assessment & Plan (08/01/2019 1:39 PM ASH WORKER): -papillary thyroid cancer with greatest dimension 2.3 [...] Fatty liver 05/03/2015 Ventricular premature beats 05/03/2015 Resolved Problems Problem Noted Date Diagnosed Date Resolved Date BMI 29.0-29.9,adult 02/29/2020 12/01/19 21 Encounters Date Type Department Care Team Description 03/14/2025 Orders Only [facility] Endocrinology Metabolism and Lipid [address] [facility] 13th [place] [address] [place] [address] [employer] RMA Hirsutism (Primary Dx) 12/29/2024 11:30 AM CDT Office Visit [facility] Radiation Oncology [address] [place] [address] Gasper Butler MD Thyroid cancer (HCC) (Primary Dx) from Last 3 Months Surgical History Surgery Date Site/Laterality Comments LASIK 06/22/2003 - 06/21/2004 BREAST BIOPSY 03/03/2024 Left KIDNEY STONE SURGERY TOTAL THYROIDECTOMY ENDOMETRIAL ABLATION Medical History Medical History Date Comments Thyroid cancer (HCC) Nephrolithiasis X2 Migraines TIA (transient ischemic attack) 2011 right sided numbness/tingling and work up negative at [facility] Dyslipidemia IBS (irritable bowel syndrome) Atrial premature depolarization NAFLD (nonalcoholic fatty liver disease) GERD (gastroesophageal reflux disease) Family History Medical History Relation Name Comments No Known Problems Brother 1 No Known Problems Brother 2 Cinda-Danlos syndrome Daughter Neha's thyroiditis Daughter Postural orthostatic tachycardic syndrome Daughter Severe combined immunodeficiency Daughter mast cell activation syndrome Daughter Atrial fibrillation Father Lewis's esophagus Father Benign prostatic hyperplasia Father COPD Father Cataracts Father Diabetes Father Gastroesophageal Reflux Disease Father Glaucoma Father Hypertension Father Pancreatitis Father Rheum arthritis Father Stroke Father Diabetes Maternal Grandfather Cervical cancer Maternal Grandmother Cataracts Mother Degenerative Disk Disease Mother Fibromyalgia Mother Glaucoma Mother Hypertension Mother SVT Mother Stroke Mother Supraventricular tachycardia Mother Joint hypermobility Son Migraines Son Other Son Relation Name Status Comments Brother 1 Alive Brother 2 Alive Daughter Alive Father Alive Maternal Grandfather Maternal Grandmother Mother Alive Son Alive Social History Tobacco Use Types Packs/Day Years Used Date Smoking Tobacco: Never Passive Smoke Exposure: Never Smokeless Tobacco: Never Tobacco Cessation:Counseling Given: Not Answered Alcohol Use Standard Drinks/Week Comments Not Currently 0 (1 standard drink = 0.6 oz pur e alcohol) AUDIT-C Answer Date Recorded Q1: How often do you have a drink containing alcohol? Never 08/01/2024 Q2: How many drinks containi ng alcohol do you have on a typical day when you are drinking? Patient does not drink Q3: How often do you have si x or more drinks on one occasion? 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 Not on file Not on file Obstetrics History Last Filed Vital Signs Vital Sign Reading Time Taken Comments Blood Pressure 121/67 12/29/2024 11:39 AM CDT Pulse 95 12/29/2024 11:39 AM CDT Temperature 36.7 C (98 F) 12/29/2024 11:39 AM CDT Respiratory Rate 18 12/29/2024 11:39 AM CDT Oxygen Saturation 100% 12/29/2024 11:39 AM CDT Inhaled Oxygen Concentration - - Weight 63 kg (138 lb 12.8 oz) 12/29/2024 11:39 A M CDT Height 154.9 cm (5' 1) 12/29/2024 11:39 AM CDT Body Mass Index 26.23 12/29/2024 11:39 AM CDT Plan of Treatment Health Maintenance Due Date Last Done Comments Breast Cancer Screening-Mammogram 1979 Cervical Cancer Screening 1979 Colon Cancer Screening-Colonoscopy 1979 Hepatitis C Screening 1979 DTaP/Tdap/Td Vaccine (1 - Tdap) 1990 Hepatitis B Screening 1997 Regular Well Visit/Exam 18-64 1997 Pneumococcal vaccine <65 (1 of 2 - PCV) 1998 Depression Screening 06/03/2022 06/03/2021, 02/29/2020, 08/01/2019 Covid-19 Vaccine (4 - 2024-2 6 season) 2025 04/25/2021, 09/30/2020, 09/04/2020 Influenza Vaccine (#1) 2025 HPV Vaccines Aged Out No longer eligi ble based on patient's age to complete this topic Medical Devices Implanted Type Area Preschool Principal Device Identifier Shelf Expiration Date Model / Serial / Lot Bard Peripheral Vascular Ultraclip Bard 17ga 10cm 2 Trigger Permanent Ultrasound [id number] - [id number] Implanted:Qty: 1 on 03/03/2024 by Supriya Ramirez MD at [facility] Left: Breast Bard Peripheral Vascular [id number] / / Insurance BLUE ACC CHOICE OOS Ceram Hyd CHOICE OOS Ceram Hyd CHOICE OOS Advance Directives For more information, please contact: [phone] * Full Code (Latest Code Status on File) Date Activated Date Inactivated Comments 03/17/2019 12:20 PM 03/18/2019 2:20 PM Care Teams Assistant Clinical Director Relationship Specialty Start Date End Date Weinacht, Margaret A., MD [address] [facility] [address], [place] [address] PCP - General Nurse Practitioner 04/11/22 Gasper Butler MD Radiation Oncologist Radiation Oncology 03/14/19 Kisha Tello MD [address] [facility] [address], [place] [address] Surgeon Otolaryngology 03/14/19 Cece Gutierrez MD [address] [facility] [address] [place] [address] Referring Physician Gynecology 02/09/24
--- OUTSIDE RECORDS SUMMARY | 2025-03-17 19:00 | XMS_ITS | Encounter Summary ---
Author Organization [facility] Address [address] [place] [address] Phone Care Team Providers Care Financial Services Professional Name Role Phone Gasper Butler MD Unavailable [phone] Kisha Tello MD Unavailable [phone] Margaret Oquendo MD Primary Care Provider [phone] Cece Gutierrez MD Unavailable [phone] Encounter Details Date Type Department Care Team (Late st Contact Info) Description 02/18/2024 Telephone [facility] Oncology [facility] 7th [place] [address] [place] [address] Harriet Navarrete Social History Tobacco Use Types Packs/Day Years Used Date Smoking Tobacco: Never Smokeless Tobacco: Never Alcohol Use Standard Drinks/Week Comments Not Currently 0 (1 standard drink = 0.6 oz pur e alcohol) AUDIT-C Answer Date Recorded Q1: How often do you have a drink containing alc ohol? Never 11/30/2020 Average Number of Drinks Not on file 021 Q3: How often do you have si x or more drinks on one occasion? 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 Not on file documented as of this encounter Plan of Treatment Not on file documented as of this encounter Visit Diagnoses Not on filedocumented in this encounter Care Teams Financial Services Professional Relationship Specialty Start Date End Date Margaret Oquendo MD [address] [facility] [address], [place] [address] PCP - General Nurse Practitioner 04/11/22 Gasper Butler MD Radiation Oncologist Radiation Oncology 03/14/19 Kisha Tello MD [address] [facility] [address], [place] [address] Surgeon Otolaryngology 03/14/19 Cece Gutierrez MD [address] [address] Referring Physician Gynecology 02/09/24 documented as of this encounter
--- OUTSIDE RECORDS SUMMARY | 2025-03-17 19:00 | XMS_ITS | Encounter Summary ---
Author Organization [facility] Address [address] [place] [address] Care Team Providers Care Cleaning Machine Operator Name Role Phone Margaret Oquendo NP Primary Care Provider [phone] Encounter Details Date Type Department Care Team (Late st Contact Info) Description 03/09/2023 Fit Stepst Message Enc [facility] Medical Group Family Medicine - [place] [address] [facility] [address] [place] [id number] Margaret Oquendo, TREASURE [address] [place] [address] [place] [address] Jeimy Bolden - Siddharth letter Social History Tobacco Use Types Packs/Day Years [...] on filedocumented in this encounter Care Teams Cleaning Machine Operator Relationship Specialty Start Date End Date Margaret Oquendo NP [address] [place] [address] [place] [address] PCP - General NURSE PRACTITIONER 03/19/21 documented as of this encounter
--- OUTSIDE RECORDS SUMMARY | 2025-03-17 19:00 | XMS_ITS | Encounter Summary ---
Author Organization [facility] Address [address] [place] [address] Care Team Providers Care Electric Screw Driver Operator Name Role Phone Margaret Oquendo NP Primary Care Provider [phone] Encounter Details Date Type Department Care Team (Late st Contact Info) Description 11/11/2023 [employer] Message Enc [facility] Medical [facility] Family Medicine - [place] [address] [facility] [address] [place], [place] [address], [place] [phone] Margaret Oquendo, TREASURE [address] [place] [address] Ondansetron Social History Tobacco Use Types Packs/Day Years [...] on filedocumented in this encounter Care Teams Electric Screw Driver Operator Relationship Specialty Start Date End Date Margaret Oquendo NP [address] [place] [address] [place] [address] PCP - General NURSE PRACTITIONER 03/19/21 documented as of this encounter
--- OUTSIDE RECORDS SUMMARY | 2025-03-17 19:00 | XMS_ITS | Encounter Summary ---
Author Organization [facility] Address [address] [place] [address] Care Team Providers Care Quality Improvement Consultant Name Role Phone Margaret Oquendo NP Primary Care Provider [phone] Encounter Details Date Type Department Care Team (Late st Contact Info) Description 06/02/2022 [employer] Message Enc [facility] Medical Group Family Medicine - [place] [address] [facility] [address] [place], [place] [address], [place] [phone] Margaret Oquendo, TREASURE [address] [place] [address] [place] [address] Question regarding HEPATITIS PANEL,ACUTE Social History Tobacco Use Types Packs/Day Years [...] Coronavirus/COVID-19? No / Unsure 05/20/2022 1:12 PM TRANSFILL TECHNICIAN documented as of this encounter Plan of Treatment Not on file documented as of this encounter Visit Diagnoses Not on filedocumented in this encounter Care Teams Quality Improvement Consultant Relationship Specialty Start Date End Date Margaret Oquendo NP [address] [place] [address] [place] [address] PCP - General NURSE PRACTITIONER 03/19/21 documented as of this encounter
--- OUTSIDE RECORDS SUMMARY | 2025-03-17 19:00 | XMS_ITS | Encounter Summary ---
Author Organization [facility] Address [address] [place] [address] Care Team Providers Care Lab Scientist Name Role Phone Margaret Oquendo NP Primary Care Provider [phone] Encounter Details Date Type Department Care Team (Late st Contact Info) Description 02/26/2022 [employer] Message Enc [facility] Medical Group Family Medicine - [place] [address] [facility] [address] [place], [place] [address], [place] [phone] Margaret Oquendo, TREASURE [address] [place] [address] Topamax Social History Tobacco Use Types Packs/Day Years Used Date Smoking Tobacco: Never Smokeless Tobacco: Never Comments:The provider can pr [...] on filedocumented in this encounter Care Teams Lab Scientist Relationship Specialty Start Date End Date Margaret Oquendo NP [address] [place] [address] [place] [address] PCP - General NURSE PRACTITIONER 03/19/21 documented as of this encounter
--- OUTSIDE RECORDS SUMMARY | 2025-03-17 19:00 | XMS_ITS | Encounter Summary ---
Author Organization [facility] Address [address] [place] [address] Care Team Providers Care Ward Supervisor Name Role Phone Margaret Oquendo NP Primary Care Provider [phone] Encounter Details Date Type Department Care Team (Late st Contact Info) Description 07/27/2022 ASP64 Message Enc [facility] Medical Group Family Medicine - [place] [address] [facility] [address] [place], [place] [address], [place] [phone] Margaret Oquendo, TREASURE [address] [place] [address] [place], [place] [address] Back issues Social History Tobacco Use Types Packs/Day Years [...] suspected to have Coronavirus/COVID-19? No / Unsure 06/30/2022 10:30 AM MATERIALS SCHEDULER documented as of this encounter Progress Notes * Sherry Nino MA - 07/28/2022 11:50 AM CST Orders faxed RIALS SCHEDULER documented in this encounter Plan of Treatment Not on file documented as of this encounter Visit Diagnoses Not on filedocumented in this encounter Care Teams Ward Supervisor Relationship Specialty Start Date End Date Margaret Oquendo NP [address] [place] [address] [place] [address] PCP - General NURSE PRACTITIONER 03/19/21 documented as of this encounter
--- OUTSIDE RECORDS SUMMARY | 2025-03-17 19:00 | XMS_ITS | Encounter Summary ---
Author Organization [facility] Address [address] [place] [address] Care Team Providers Care Plaster Die Maker Name Role Phone Margaret Oquendo NP Primary Care Provider [phone] Encounter Details Date Type Department Care Team (Late st Contact Info) Description 06/11/2023 Base79 Message Enc [facility] Medical Group Family Medicine - [place] [address] [facility] [address] [place], [place] [address], [place] [phone] Margaret Oquendo, TREASURE [address] [place], [place] [address] Cancel Jeromy s appointment Thursday Social History Tobacco Use Types Packs/Day Years [...] on filedocumented in this encounter Care Teams Plaster Die Maker Relationship Specialty Start Date End Date Margaret Oquendo NP [address] [place] [address] [place] [address] PCP - General NURSE PRACTITIONER 03/19/21 documented as of this encounter
--- OUTSIDE RECORDS SUMMARY | 2025-03-17 19:00 | XMS_ITS | Encounter Summary ---
Author Organization [facility] Address [address] [place] [address] Care Team Providers Care Inspector Filters Name Role Phone Margaret Oquendo NP Primary Care Provider [phone] [phone] Encounter Details Date Type Department Care Team (Late st Contact Info) Description 10/20/2023 Share[employer] Message Enc [facility] Medical Group Family Medicine - [place] [address] [facility] [address] [place], [place] [address], [place] [phone] Margaret Oquendo NP [address] [place] [address] [place], [place] [address] Steroid Social History Tobacco Use Types Packs/Day Years [...] on filedocumented in this encounter Care Teams Inspector Filters Relationship Specialty Start Date End Date Margaret Oquendo NP [address] [place] [address] [place] [address] PCP - General NURSE PRACTITIONER 03/19/21 documented as of this encounter
--- OUTSIDE RECORDS SUMMARY | 2025-03-17 19:00 | XMS_ITS | Encounter Summary ---
Author Organization [facility] Address [address] [place] [address] Care Team Providers Care Junior Web Designer Name Role Phone Margaret Oquendo NP Primary Care Provider [phone] Encounter Details Date Type Department Care Team (Late st Contact Info) Description 08/31/2023 [employer] Online Message Enc [facility] Medical Group Family Medicine - [place] [address] [facility] [address] [place], [place] [address], [place] [phone] Margaret Oquendo, TREASURE [address] [place], [place] [address] Bettye Munson Social History Tobacco Use Types Packs/Day Years [...] on filedocumented in this encounter Care Teams Junior Web Designer Relationship Specialty Start Date End Date Margaret Oquendo NP [address] [address] [place] [address] PCP - General NURSE PRACTITIONER 03/19/21 documented as of this encounter
--- OUTSIDE RECORDS SUMMARY | 2025-03-17 19:00 | XMS_ITS | Encounter Summary ---
Author Organization [facility] Address [address] [place] [address] Care Team Providers Care Flight Engineer Performance Qualified Name Role Phone Margaret Oquendo NP Primary Care Provider [phone] Encounter Details Date Type Department Care Team (Late st Contact Info) Description 08/18/2023 [employer] Message Enc [facility] Medical Group Family Medicine - [place] [address] [facility] [address] [place], [place] [address], [place] [phone] Margaret Oquendo, TREASURE [address] [place] [address] [place] [address] Luca - son Jeromy Social History Tobacco Use Types Packs/Day [...] Progress Notes * Sherry Nino MA - 08/18/2023 2:17 PM CST Referral placed NICAL SUPPORT 1 SOFTWARE ENGINEER * Margaret Oquendo NP - 08/18/2023 1:52 PM CST Ok for referral. NICAL SUPPORT 1 SOFTWARE ENGINEER documented in this encounter Plan of Treatment Not on file documented as of this encounter Visit Diagnoses Not on filedocumented in this encounter Care Teams Flight Engineer Performance Qualified Relationship Specialty Start Date End Date Margaret Oquendo NP [address] [place] [address] PCP - General NURSE PRACTITIONER 03/19/21 documented as of this encounter
--- OUTSIDE RECORDS SUMMARY | 2025-03-17 19:00 | XMS_ITS | Encounter Summary ---
Author Organization [facility] Address [address] [place] [address] Care Team Providers Care Plumber And Tinner Name Role Phone Margaret Oquendo NP Primary Care Provider [phone] Encounter Details Date Type Department Care Team (Late st Contact Info) Description 09/22/2023 [employer]u Message Enc [facility] Medical Group Family Medicine - [place] [address] [facility] [address] [place] [phone] Margaret Oquendo, TREASURE [address] [place] [address] [place], [place] [address] Naltrexone 3mg Social History Tobacco Use Types Packs/Day Years [...] on filedocumented in this encounter Care Teams Plumber And Tinner Relationship Specialty Start Date End Date Margaret Oquendo NP [address] [place] [address] [place] [address] PCP - General NURSE PRACTITIONER 03/19/21 documented as of this encounter
--- OUTSIDE RECORDS SUMMARY | 2025-03-17 19:00 | XMS_ITS | Encounter Summary ---
Author Organization [facility] Address [address] [place] [address] Care Team Providers Care Staff Software Engineer Name Role Phone Margaret Oquendo NP Primary Care Provider [phone] [phone] Encounter Details Date Type Department Care Team (Late st Contact Info) Description 11/30/2024 [employer] Medical Techn[employer]iest Message Enc [facility] Medical Group Family Medicine - [place] [address] [facility] [address] [place], [place] [address], [place] [phone] Margaret Oquendo, TREASURE [address] [place], [place] [address] Future labs Social History Tobacco Use Types Packs/Day Years [...] Total Score: 8 05/10/20 24 1:39 PM MINE INSPECTOR documented as of this encounter Care Teams Staff Software Engineer Relationship Specialty Start Date End Date Margaret Oquendo NP [address] [facility] [address] [place] [address] PCP - General NURSE PRACTITIONER 03/19/21 documented as of this encounter
--- OUTSIDE RECORDS SUMMARY | 2025-03-17 19:00 | XMS_ITS | Encounter Summary ---
Author Organization [facility] Address [address] [place] [address] Care Team Providers Care Special Officer Automat Name Role Phone Margaret Oquendo NP Primary Care Provider +1 [phone] Encounter Details Date Type Department Care Team (Late st Contact Info) Description 02/05/2023 Prep for Procedure [facility] Medical Group Urology - [address] [place], [place] [phone] [place] MD [facility] [place] [address] Social History Tobacco Use Types Packs/Day Years [...] as of this encounter Visit Diagnoses Diagnosis Kidney stones- Primary Calculus of kidney documented in this encounter Care Teams Special Officer Automat Relationship Specialty Start Date End Date Margaret Oquendo NP [address] [place] [address] [place] [address] PCP - General NURSE PRACTITIONER 03/19/21 documented as of this encounter
--- OUTSIDE RECORDS SUMMARY | 2025-03-17 19:00 | XMS_ITS | Encounter Summary ---
Author Organization [facility] Address [address] [place] [id number] Care Team Providers Care Bacteriologist Fishery Name Role Phone Margaret Oquendo NP Primary Care Provider [phone] Encounter Details Date Type Department Care Team (Late st Contact Info) Description 05/17/2023 ACSIAN Message Enc [facility] Family Medicine - [place] [address] [facility] [address] [place], [place] [address], [place] [id number] Margaret Oquendo, TREASURE [address] [place], [place] [id number] Jeimy Yuan Social History Tobacco Use Types Packs/Day [...] on filedocumented in this encounter Care Teams Bacteriologist Fishery Relationship Specialty Start Date End Date Margaret Oquendo NP [address] [place] [address] PCP - General NURSE PRACTITIONER 03/19/21 documented as of this encounter
--- OUTSIDE RECORDS SUMMARY | 2025-03-17 19:00 | XMS_ITS | Encounter Summary ---
Author Organization [facility] Address [address] [place] [address] Care Team Providers Care Warp Yarn Sorter Name Role Phone Margaret Oquendo NP Primary Care Provider [phone] Encounter Details Date Type Department Care Team (Late st Contact Info) Description 12/05/2022 Reelio Message Enc [facility] Family Medicine - [place] [address] [facility] [address] [facility] [place] [address] Demi, [facility] Provider Phentermine Social History Tobacco Use Types Packs/Day [...] on filedocumented in this encounter Care Teams Warp Yarn Sorter Relationship Specialty Start Date End Date Margaret Oquendo, TREASURE [address] [place] [address] PCP - General NURSE PRACTITIONER 03/19/21 documented as of this encounter
[2025-03-17 19:15] LABS: EDUAAPPEAR Cloudy; EDUABILI Negative (Negative); EDUABLOOD 3+ (Negative); EDUACOLOR1 Yellow; EDUAGLUCOSE Negative (Negative); EDUAKETONE Negative (Negative); EDUALEUKO 1+ (Negative); EDUANITRATE Positive (Negative); EDUAPH 6.0; EDUAPROTEIN Trace (Negative); EDUASPGRAVITY 1.030; EDUAUROBILI 0.2
--- NOTE | 2025-03-17 19:26 | ED.FEMALEGU ---
HPI - Female Genitourinary General Chief complaint: Urogenital-Female Stated complaint: Pain with urination Time Seen by Provider: 03/17/25 19:11 Source: patient and RN notes reviewed Mode of arrival: ambulatory Limitations: no limitations History of Present Illness HPI Narrative: Patient presents today complaining of dysuria, left mid to low back pain, CP pubic pain, frequency urgency, blood with wiping. Symptoms began today. No OTC treatment prior to arrival. History of kidney stones, but states this pain is not similar to stones in the past. Related Data Home Medications ?Medication ?Instructions ?Recorded ?Confirmed ?Last Taken ?Type ergocalciferol (vitamin D2) 1,250 50,000 unit PO 2XW 09/09/19 12/15/22 11/18/22 History mcg (50,000 unit) capsule (Vitamin D2) aspirin 81 mg tablet 81 mg PO DAILY 10/30/20 12/15/22 11/18/22 History levothyroxine 75 mcg tablet 75 mcg PO DAILY 10/30/20 12/15/22 11/24/22 History (Synthroid) multivit-iron 18 mg-folic acid 400 1 tablet PO DAILY 10/30/20 12/15/22 11/18/22 History mcg-calcium 500 mg-minerals tablet (Women's One Daily) omega-3 fatty acids 1,000 mg PO DAILY 10/30/20 12/15/22 11/14/22 History levothyroxine 88 mcg tablet 88 mcg PO 3XW 11/07/22 12/15/22 12/15/22 History (Synthroid) metformin 500 mg tablet,extended 500 mg PO BID 11/07/22 12/15/22 11/18/22 History release 24 hr phentermine 15 mg capsule 15 mg PO DAILY 11/07/22 12/15/22 11/14/22 History atogepant 30 mg tablet (Qulipta) 30 mg PO DAILY 11/12/22 12/15/22 11/18/22 History Allergies Allergy/AdvReac Type Severity Reaction Status Date / Time pseudoephedrine Allergy Unknown Palpitation Verified 03/17/25 19:14 s butorphanol (From Stadol) Allergy Itching Verified 03/17/25 19:14 erythromycin base AdvReac Intermediate Nausea Verified 03/17/25 19:14 artichoke AdvReac Difficulty Verified 03/17/25 19:14 Swallowing LACTOSE INTOLERANT AdvReac Unknown upset Uncoded 01/28/23 08:33 stomach PMFSH Past Medical History Medical History Elevated liver enzymes Gastroesophageal reflux disease History of kidney stones Hx TIA/stroke w/o resid Migraine, unspecified, not intractable, without status migrainosus (normal spontaneous vaginal delivery) x2 Other and unspecified hyperlipidemia Papillary adenocarcinoma of thyroid Vitamin D deficiency Surgical History Surgical History History of hysteroscopy History of thyroidectomy Hx of LASIK Family History Family History Father Family history of rheumatoid arthritis Family history of liver disease Diabetes mellitus Hypertension Hyperlipidemia Mother Cerebrovascular accident Diabetes mellitus Heart disease Hyperlipidemia Hypertension Social History Social History Smoking status: Never smoker Second hand tobacco smoke exposure: No Alcohol intake: never Substance use: never Substance use type: does not use Living arrangements: with family Gender identity (if verbalized by the patient): Female Sexual Orientation (if Verbalized by the Patient): Straight or Heterosexual Spiritual care concerns: No Agree to blood products: Yes Comments At time of signature, I have reviewed and agree with nursing past medical, surgical, social and family history unless otherwise noted. Please see nursing chart for further information. There is no relevant family history pertinent to the presenting complaint Exam Narrative: GENERAL: Well-appearing, well-nourished, and in no acute distress. HEAD: Normocephalic, atraumatic. EYES: EOMI. No redness or drainage. Conjunctivae normal. ENT: Mucous membranes pink and moist. NECK: Normal AROM. CHEST: No respiratory distress. Clear to auscultation. HEART: Regular rate and rhythm. No murmur appreciated. ABDOMEN: Soft, nondistended, normal active bowel sounds.+ suprapubic tenderness. Mild left CVAT EXTREMITIES: Normal range of motion. No edema. SKIN: Warm, dry, no rash. Capillary refill normal. Normal skin turgor. NEURO: No focal deficits. Alert and oriented x3. Gait steady. PSYCH: Normal affect. No signs of depression or anxiety. Course Course Level of Care: Express Care Visit Vital Signs Vital signs: Vital Signs Temperature 97.9 F 03/17/25 19:00 Pulse Rate 95 03/17/25 19:00 Respiratory Rate 16 03/17/25 19:00 Blood Pressure 127/74 03/17/25 19:00 Pulse Oximetry 100 03/17/25 19:00 Oxygen Delivery Room Air 03/17/25 19:00 Temperature 97.9 F 03/17/25 19:00 Pulse Rate 95 03/17/25 19:00 Respiratory Rate 16 03/17/25 19:00 Blood Pressure 127/74 03/17/25 19:00 Pulse Oximetry 100 03/17/25 19:00 Oxygen Delivery Room Air 03/17/25 19:00 Reviewed MDM - Female Genitourinary MDM Narrative Medical decision making narrative: 45-year-old female patient presents today with urinary symptoms to include dysuria, left into low back pain, suprapubic pain, frequency, urgency, blood with wiping. Symptoms began today. Symptoms not similar to previous kidney stone symptoms. No OTC treatment prior to arrival. Upon exam, patient has some mild suprapubic pain and mild left CVAT. Urinalysis shows trace protein, 3+ blood, positive nitrites, 1+ leukocytes. Patient states her and her frequent the gym and are actively trying to lose weight. Instead of Cipro for possible complicated UTI due to mild CVAT due to concerns for tendon rupture, will place patient on Augmentin instead. Culture pending. Discussed [id number] medication for symptom control as well. Vital signs stable. Patient afebrile. Anticipatory guidance and ED precautions given. Differential Diagnosis Differential diagnosis: Likely urinary tract infection, cystitis and other (Pyelonephritis) Lab Data Attestation: I reviewed the patient's lab results. Labs: Lab Results 03/17/25 Range/Units 19:08 POC Urine Color Yellow POC Urine Clarity Cloudy POC Urine pH 6.0 POC Ur Specif [place] 1.030 POC Urine Protein Trace (Negative) POC Ur Glucose (UA) Negative (Negative) POC Urine Ketones Negative (Negative) POC Urine Blood 3+ (Negative) POC Urine Nitrite Positive (Negative) POC Urine Bilirubin Negative (Negative) POC Urine Urobilinogen 0.2 POC U Leukocyte Esteras 1+ (Negative) Critical Care Time Critical Care Time Critical Care Time: No Discharge Plan Discharge Clinical Impression: Urinary tract infection Qualifiers: Urinary tract infection type: acute cystitis Hematuria presence: with hematuria Qualified Code(s): N30.01 - Acute cystitis with hematuria Patient Disposition: Home Condition: Stable Instructions: Antibiotic Form, Urinary Tract Infection in Women (DC) Additional Instructions: Your urine shows infection today. Take Augmentin as prescribed until gone. Your urine will be sent of for a culture to identify what type of bacteria is causing your infection. If the culture shows that your medication will not get rid of your infection, you will be notified and a new antibiotic will be called in for you. If your symptoms worsen to include fever, sweats, chills, nausea, vomiting, severe abdominal or back pain, please go to the ER for further evaluation. Patient Language: Tristanian Prescriptions: New amoxicillin 875 mg tablet 875 mg PO Q12H 7 Days Qty: 14 0RF No Action ergocalciferol (vitamin D2) [Vitamin D2] 1,250 mcg (50,000 unit) capsule 50,000 unit PO 2XW Patient Comments: takes on Thursday and Thursday every week rosuvastatin 10 mg tablet 10 mg PO DAILY Qty: 30 5RF Patient Comments: TAKES AT HS levothyroxine [Synthroid] 75 mcg tablet 75 mcg PO DAILY Patient Comments: Thu-Thu-Thu 88mcg, other days 75mcg aspirin 81 mg Tablet 81 mg PO DAILY omega-3 fatty acids Capsule 1,000 mg PO DAILY Women's One Daily 18 mg iron-400 mcg-500 mg Ca Tablet 1 tablet PO DAILY phentermine 15 mg capsule 15 mg PO DAILY Patient Comments: Agrees to stop for 5 days prior to EGD on 11/19/2022 levothyroxine [Synthroid] 88 mcg tablet 88 mcg PO 3XW Patient Comments: Takes THU- Thu-THU then takes 75mcg on other days metformin 500 mg tablet extended release 24 hr 500 mg PO BID hydrocodone-acetaminophen 5-325 mg tablet 1 tablet PO Q6H PRN (Reason: pain) Qty: 10 0RF tamsulosin [Flomax] 0.4 mg capsule 0.4 mg PO DAILY Qty: 7 0RF ondansetron 4 mg tablet,disintegrating 4 mg PO Q8H PRN (Reason: nausea and vomiting) Qty: 10 0RF Qulipta 30 mg tablet 30 mg PO DAILY ferrous sulfate 325 mg (65 mg iron) tablet 325 mg PO DAILY Qty: 90 0RF Rx Instructions: Do not take within 2 hours of thyroid medication. famotidine 40 mg tablet 40 mg PO BID Qty: 60 11RF omeprazole 20 mg capsule,delayed release(DR/EC) 20 mg PO DAILY Qty: 30 11RF Follow-up/Referrals: Azra,KYLE Monroy [Primary Care Provider, Unknown] Time of Disposition: 19:26
== END 2025-03-17 19:30 | disposition home or self-care (01) ==
PROVIDERS: Emergency Provider Nurse Practitioner; PCP Nurse Practitioner
DX: N30.01 Acute cystitis with hematuria (principal)
CPT/HCPCS: 81003; 99213; G0463

== ENCOUNTER 2025-06-01 11:36 | Outpatient (CLI) | payer BC, SELFPAY ==
--- NOTE | ~2025-06-01 | XR_ITS ---
EXAMINATION: XR shoulder LT min 2V DATE: 06/01/2025 12:02 INDICATION: Chronic pain TECHNIQUE: Left shoulder x-rays were obtained. COMPARISON: None. FINDINGS: Bone mineralization and alignment as well as the soft tissues appear within normal limits. IMPRESSION: 1. Negative left shoulder x-rays. For persisting or worsening shoulder pain refractory to conservative therapy, correlation with left shoulder MRI suggested for optimal evaluation. Reviewed, dictated and finalized at location A. ARD/STEWARDESS SECOND IMPRESSION: 1. Negative left shoulder x-rays. For persisting or worsening shoulder pain ref ractory to conservative therapy, correlation with left shoulder MRI suggested f or optimal evaluation.
== END 2025-06-01 11:37 | disposition home or self-care (01) ==
PROVIDERS: PCP Nurse Practitioner; Visit Provider Nurse Practitioner
DX: M25.512 Pain in left shoulder (principal); G89.29 Other chronic pain
CPT/HCPCS: 73030

== ENCOUNTER 2025-06-21 09:52 | Outpatient (CLI) | payer BC, SELFPAY ==
--- NOTE | ~2025-06-21 | US_ITS ---
ULTRASOUND ABDOMEN LIMITED (RIGHT UPPER QUADRANT) Clinical History: gallstones, elevated bilirubin. Comparison: Ultrasound abdomen 04/27/2024 Technique: Right upper quadrant sonography Findings: Liver: Enlarged. Echogenic. Micronodular contour. No intrahepatic biliary ductal dilatation. Common Duct: Normal caliber. 4 mm. Gallbladder: Stones. No wall thickening. No pericholecystic fluid. Negative sonographic Holguin's sign per technologist report. Pancreas: Unremarkable. IMPRESSION: 1. Gallstones. No cholecystitis. 2. Suspect mild cirrhosis. Hepatic steatosis. Reviewed, dictated and finalized at location R. 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
== END 2025-06-21 09:53 | disposition home or self-care (01) ==
LOC: MICIMG 09:52
PROVIDERS: PCP Nurse Practitioner; Visit Provider Nurse Practitioner
DX: R74.8 Abnormal levels of other serum enzymes (principal); K80.20 Calculus of gallbladder without cholecystitis without obstruction
CPT/HCPCS: 76705